=== PATIENT | male | born 1945 | race Caucasian/White ===

== ENCOUNTER 2022-04-11 08:20 | Inpatient (IN) ==
--- NOTE | 2022-04-11 08:33 | Emergency Department Note ---
HPI General Chief complaint: Extremity Injury, Lower Stated complaint: Right foot pain Time Seen by Provider: 04/11/22 08:33 Source: patient Mode of arrival: wheelchair Limitations: no limitations History of Present Illness HPI Narrative: Narrative: Patient is a 77-year-old male with a complex medical history who presents to the emergency department due to concern for bleeding, pain, and swelling of his right foot. He states that this began or Sunday. He states that he first noticed redness, swelling, and bleeding of his foot. He states the bleeding was from the sole of his foot. He states that he had pain in this region, although this was not significant, because he does have a neuropathy that has decreased sensation in both legs. He states that the swelling became worse, and the bleeding continued, so decided to come to the emergency department. When asked about the rest of his leg patient states he is unsure when the redness spread to his leg to his knee. He denies any other symptoms at this time. Related Data Home Medications Medication Instructions Recorded Confirmed labetalol 100 mg tablet 300 mg PO BID 08/14/15 04/11/22 omeprazole 20 mg capsule,delayed 20 mg PO DAILY 08/14/15 04/11/22 release apixaban 5 mg tablet (Eliquis) 5 mg PO BID 04/05/16 04/11/22 multivitamin (Multi-Day tablet) 1 tab-cap PO QDAY 04/05/16 04/11/22 atorvastatin 10 mg tablet 5 mg PO QDAY 11/27/16 04/11/22 duloxetine 20 mg capsule,delayed 40 mg PO QHS 01/16/19 04/11/22 release digoxin 125 mcg (0.125 mg) tablet 125 mcg PO QDAY 09/30/20 04/11/22 magnesium 400 mg .Route BID 09/30/20 04/11/22 pramipexole 0.125 mg tablet See Rx Instructions PO QDAY 09/30/20 04/11/22 lisinopril 20 mg tablet 20 mg PO QDAY 04/07/21 04/11/22 pilocarpine HCl 5 mg tablet 10 mg PO DAILY 04/07/21 04/11/22 brimonidine 0.1 % eye drops 1 drp ophthalmic (eye) BID 04/13/21 04/11/22 (Alphagan P) calcium carbonate 600 mg-vitamin 1,000 cap PO QDAY 04/13/21 04/11/22 D3 25 mcg (1,000 unit) capsule cholecalciferol (vitamin D3) 1,250 2,000 unit PO DAILY 06/07/21 04/11/22 mcg (50,000 unit) capsule vitamin B complex 1 tab PO DAILY 06/07/21 04/11/22 ascorbic acid (vitamin C) 500 mg 1 g PO BID 07/18/21 04/11/22 tablet clonidine HCl 0.3 mg tablet 0.3 mg PO QDAY 07/18/21 04/11/22 ergocalciferol (vitamin D2) 50 mcg 50 mcg PO QMONTH 07/18/21 04/11/22 (2,000 unit) capsule furosemide 80 mg tablet See Rx Instructions PO BID 01/16/22 04/11/22 metolazone 2.5 mg tablet 2.5 mg PO QDAY 01/16/22 04/11/22 folic acid 1 mg PO DAILY 04/11/22 04/11/22 Previous Rx's Medication Instructions Recorded hydroxychloroquine 200 mg tablet 200 mg PO BID #60 tabs 01/16/19 docusate sodium 100 mg capsule 100 mg PO BID #20 caps 06/13/21 (Dulcolax Stool Softener (docusate)) oxycodone 5 mg tablet 5 mg PO Q6H PRN pain #10 tabs 06/13/21 potassium chloride 20 mEq 40 meq PO TID Diuretic induced 01/16/22 tablet,extended release hypokalemia #540 tabs allopurinol 300 mg tablet 300 mg PO QDAY #30 tabs 03/13/22 Allergies Allergy/AdvReac Type Severity Reaction Status Date / Time spironolactone Allergy Severe Swelling Verified 04/10/22 14:53 hydrocodone Allergy Mild Vomiting Verified 04/10/22 14:53 eplerenone Allergy Unknown Unknown Verified 04/10/22 14:53 irbesartan [From Avapro] Allergy Unknown Unknown Verified 04/10/22 14:53 lansoprazole [From Prevacid] Allergy Unknown Unknown Verified 04/10/22 14:53 valsartan [From Diovan] Allergy Unknown Unknown Verified 04/10/22 14:53 Review of Systems ROS ROS Narrative: Narrative: Constitutional: Denies fever or weakness Eyes: Denies eye pain or vision change ENT ED: Denies throat pain or rhinorrhea Cardiovascular: Denies chest pain or edema Respiratory: Denies shortness of breath or cough Gastrointestinal: Denies abdominal pain, nausea, vomiting, diarrhea, constipation, hematochezia or melena Genitourinary: Denies dysuria or frequency Musculoskeletal: Denies back pain or myalgia Integumentary: Reports change in color (Right lower leg); Denies rash or lesions Neurological: Denies headache, weakness, numbness, confusion, abnormal gait or dizziness Endocrine: Denies fatigue or polyuria PFS Narrative Patient History Narrative: Narrative: Medical/Surgical/Family History All Active Problems (Updated 04/11/22 @ 12:03 by Rufino Harrington MD) Laceration (Chronic) Encounter for removal of sutures (Chronic) Costochondral pain (Chronic) Bleeding from varicose veins of lower extremity (Chronic) Anticoagulation adequate with anticoagulant therapy (Chronic) Abnormal antibody titer (Chronic) Adenomatous colon polyp (Chronic) Anemia (Chronic) Anticoagulant prescribed (Chronic) Aortic regurgitation (Chronic) Arthralgia (Chronic) Aspiration of liquid (Chronic) Benign colonic polyp (Chronic) Chondrosarcoma (Chronic) Cough (Chronic) Dissection of thoracoabdominal aorta (Chronic) Edema (Chronic) Elevated serum free T4 level (Chronic) Encounter for long-term (current) use of high-risk medication (Chronic) Encounter for long-term use of opiate analgesic (Chronic) Encounter for monitoring long-term proton pump inhibitor therapy (Chronic) Essential (primary) hypertension (Chronic) GERD without esophagitis (Chronic) GI bleed (Chronic) Hereditary and idiopathic neuropathy (Chronic) History of prostate cancer (Chronic) Hyperlipidemia (Chronic) PAULINA (iron deficiency anemia) (Chronic) Infected sebaceous cyst (Chronic) Influenza vaccine needed (Chronic) roasterman (current) use of non-steroidal anti-inflammatories (nsaid) (Chronic) Need for vaccination with 13-polyvalent pneumococcal conjugate vaccine (Chronic) Ongoing pain (Chronic) Overweight (Chronic) Paroxysmal atrial fibrillation (Chronic) Recurrent cold sores (Chronic) Right shoulder pain (Chronic) Stage III chronic kidney disease (Chronic) Superficial thrombophlebitis (Chronic) Venous insufficiency (Chronic) 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) Adenomatous polyp (Chronic) History of arthritis (Chronic) Multiple pulmonary nodules determined by computed tomography of lung (Chronic) Displaced spiral fracture of shaft of femur (Chronic) Fracture of plateau of left tibia (Chronic) Positive occult stool blood test (Chronic) Prostate cancer (Chronic) 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) Superficial varicosities (Chronic) Ruptured varicose vein (Chronic) Polyarthralgia (Chronic) Rheumatoid arthritis (Chronic) Osteopenia (Chronic) Osteoarthritis (Chronic) Positive BOB (antinuclear antibody) (Chronic) Elevated parathyroid hormone (Chronic) Decreased GFR (Chronic) Pulmonary nodules (Chronic) Cellulitis (Chronic) History of anticoagulant use (Chronic) Varicose vein of leg (Chronic) Acute dyspnea (Chronic) COVID-19 (Chronic) Acute dehydration (Chronic) Rheumatoid nodules (Chronic) Chronic kidney disease (Chronic) Malignant melanoma (Chronic) Hyperuricemia (Chronic) High serum potassium level (Acute) Diuretic-induced hypokalemia (Acute) Gout (Chronic) Blood potassium level greater than 5.0 mEq/L (Acute) Cellulitis (Acute) JOSE ANTONIO (acute kidney injury) (Acute) Medical History Abnormal antibody titer Acute dehydration Acute dyspnea Acute post-traumatic stress disorder Adenomatous colon polyp Adenomatous polyp Anemia Anticoagulant prescribed Anticoagulation adequate with anticoagulant therapy Aortic regurgitation Repair at time of TAA repair Arthralgia Aspiration of liquid Benign colonic polyp Bleeding from varicose veins of lower extremity Cellulitis Chondrosarcoma Chronic kidney disease Constrictive pericarditis Costochondral pain Cough COVID-19 Decreased GFR 01/13/20 GFR 50 Displaced spiral fracture of shaft of femur Dissection of thoracoabdominal aorta Edema Elevated parathyroid hormone Elevated serum free T4 level Encounter for long-term (current) use of high-risk medication Encounter for long-term use of opiate analgesic Encounter for monitoring long-term proton pump inhibitor therapy Encounter for removal of sutures Essential (primary) hypertension Fracture of plateau of left tibia GERD without esophagitis GI bleed Hereditary and idiopathic neuropathy History of anticoagulant use History of arthritis History of prostate cancer Hyperlipidemia PAULINA (iron deficiency anemia) Infected sebaceous cyst Influenza vaccine needed Laceration custodial (current) use of non-steroidal anti-inflammatories (nsaid) Malignant melanoma Left mid-back Multiple pulmonary nodules determined by computed tomography of lung Need for vaccination with 13-polyvalent pneumococcal conjugate vaccine Ongoing pain Osteoarthritis Osteopenia Overweight Paroxysmal atrial fibrillation Polyarthralgia Positive BOB (antinuclear antibody) Positive occult stool blood test Prostate cancer Pulmonary nodules Recurrent cold sores Rheumatoid arthritis Rheumatoid nodules Right shoulder pain Ruptured varicose vein Stage III chronic kidney disease GFR 60 => 45 cc/min over the past 20 yrs given catastrophic TAA and repair. Due to desire to keep BP low, diuretic therapy and RAASI therapy, superimposed prerenal azotemic state. 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 History of right shoulder replacement History of tonsillectomy S/P pericardial surgery remove pericardium, constrictive pericarditis Family History Other Aortic aneurysm Breast cancer Malignant melanoma Osteoporosis Prostate cancer Social History Smoking Status: Never smoker Alcohol Intake Frequency: former alcohol drinker Exam Narrative Narrative: Narrative: General Limitations: no limitations General appearance: Present alert and in no apparent distress; Absent anxious, appears intoxicated or sleepy Head Head: Present atraumatic and normocephalic Eye Eye: Present EOMI; Absent scleral icterus or nystagmus ENT ENT: Present mucous membranes moist; Absent nasal congestion Neck Neck: Present full ROM; Absent tenderness Chest Chest: Present normal inspection and symmetric chest wall rise Respiratory Respiratory: Present normal lung sounds bilaterally; Absent respiratory distress or accessory muscle use Cardiovascular Cardiovascular: Present regular rate, normal rhythm and normal heart sounds Adbominal Abdominal: Present soft; Absent distention Extremities Extremities: Present normal inspection, full ROM, tenderness, pedal edema (Right sided) and pretibial edema (Right sided) Back Back: Present normal inspection and full ROM Neurological Neurological: Present alert and oriented X3 Psychiatric Psychiatric: Present normal affect and normal mood Skin Skin: Present warm (WNL), dry, normal color, erythema and other (Hematoma on sole of right foot) Course Vital Signs Vital signs: Vital Signs Temperature 97.9 F 04/11/22 08:23 Pulse Rate 92 H 02/14/23 08:23 Respiratory Rate 18 04/11/22 08:23 Blood Pressure 112/59 04/11/22 08:23 Pulse Oximetry (%) 94 04/11/22 08:23 Oxygen Delivery Method Room Air 04/11/22 08:23 Temperature 97.9 F 04/11/22 08:23 Pulse Rate 82 04/11/22 11:01 Respiratory Rate 18 04/11/22 08:23 Blood Pressure 99/48 04/11/22 11:01 Pulse Oximetry (%) 93 04/11/22 11:01 Oxygen Delivery Method Room Air 04/11/22 10:31 MDM MDM Narrative Medical decision making narrative: Narrative: Patient is a 77-year-old male who presents to the emergency department due to concern for swelling and bleeding of his right foot. Differential diagnoses include spreading cellulitis, necrotizing soft tissue infection, DVT, although patient is taking Eliquis twice daily and has not missed any doses. Patient's labs are reassuring other than a procalcitonin of 0.5, and significant elevation in creatinine from 1.6-3.6. Patient has received vancomycin and cefepime due to concern for rapidly spreading infection. A CT scan was performed and did demonstrate findings that would be consistent with a cellulitis. I have spoken to Dr. Cruz and he has agreed to see and evaluate patient for admission. Lab Data 04/11/22 09:20 Labs: Lab Results 04/11/22 04/11/22 04/11/22 Range/Units 09:10 09:13 09:20 WBC 7.8 (4.5-11.0) K/mcL RBC 3.30 L (4.63-6.08) M/mcL Hgb 9.6 L (13.7-17.5) g/dL Hct 30.5 L (40.1-51.0) % POC Hct 27.0 L (41-55) MCV 92.4 (80.0-100.0) fL MCH 29.1 (26.0-34.0) pg MCHC 31.5 (31.0-36.0) g/dL RDW 16.6 H (11.5-14.5) % Plt Count 176 (140-440) K/mcL MPV 11.0 (8.8-12.5) fL Immature Gran % (Auto) 0.4 (0.0-0.5) % Neut % (Auto) 72.2 (38.0-78.0) % Lymph % (Auto) 9.5 L (15.5-49.0) % [place] % (Auto) 14.2 H (1.0-12.0) % Eos % (Auto) 3.2 (0.0-7.0) % Baso % (Auto) 0.5 (0.0-2.0) % Lymph # (Auto) 0.74 L (1.50-4.80) K/mcL [place] # (Auto) 1.11 H (0.10-0.90) K/mcL Eos # (Auto) 0.25 (0.00-0.70) K/mcL Baso # (Auto) 0.04 (0.00-0.30) K/mcL Immature Gran # 0.03 (0.00-0.05) K/mcl Absolute Neutrophils 5.63 (1.80-8.00) K/mcL POC VBG pH 7.41 (7.32-7.42) POC VBG pCO2 at Temp 44.8 (41-51) POC VBG pO2 48 H (25-40) POC VBG HCO3 28.2 H (24-28) POC VBG Total CO2 30.0 H (25-29) POC Venous O2 Sat 83.0 H (40-70) POC VBG Base Excess 4.0 H* (-2-2) VBG Lactic Acid 0.8 (0.5-2) POC Sodium 134 (133-145) POC Potassium 5.6 H (3.3-5.1) POC Chloride 98 (96-108) POC Total CO2 29.0 (22-30) POC BUN 83 H (6-20) POC Creatinine 3.6 H (0.6-1.2) POC Glucose 123 H (70-105) POC WB Ioniz Calcium 1.11 L (1.16-1.32) Procalcitonin (<0.10) ng/mL 04/11/22 Range/Units 09:20 WBC (4.5-11.0) K/mcL RBC (4.63-6.08) M/mcL Hgb (13.7-17.5) g/dL Hct (40.1-51.0) % POC Hct (41-55) MCV (80.0-100.0) fL MCH (26.0-34.0) pg MCHC (31.0-36.0) g/dL RDW (11.5-14.5) % Plt Count (140-440) K/mcL MPV (8.8-12.5) fL Immature Gran % (Auto) (0.0-0.5) % Neut % (Auto) (38.0-78.0) % Lymph % (Auto) (15.5-49.0) % [place] % (Auto) (1.0-12.0) % Eos % (Auto) (0.0-7.0) % Baso % (Auto) (0.0-2.0) % Lymph # (Auto) (1.50-4.80) K/mcL [place] # (Auto) (0.10-0.90) K/mcL Eos # (Auto) (0.00-0.70) K/mcL Baso # (Auto) (0.00-0.30) K/mcL Immature Gran # (0.00-0.05) K/mcl Absolute Neutrophils (1.80-8.00) K/mcL POC VBG pH (7.32-7.42) POC VBG pCO2 at Temp (41-51) POC VBG pO2 (25-40) POC VBG HCO3 (24-28) POC VBG Total CO2 (25-29) POC Venous O2 Sat (40-70) POC VBG Base Excess (-2-2) VBG Lactic Acid (0.5-2) POC Sodium (133-145) POC Potassium (3.3-5.1) POC Chloride (96-108) POC Total CO2 (22-30) POC BUN (6-20) POC Creatinine (0.6-1.2) POC Glucose (70-105) POC WB Ioniz Calcium (1.16-1.32) Procalcitonin 0.50 H (<0.10) ng/mL EKG Data EKG #1: EKG attestation: Yes I reviewed and interpreted this EKG. EKG results narrative: Atrial fibrillation with a rate of 83, normal axis, QRS of 106, QTc of 410, T wave flattening in leads I, II, III, aVL, aVF, and V6, and absence of ST elevation or depression. Discharge Plan Patient/Caregiver Discharge Instructions Pt seen by STILL PHOTOGRAPHER/PA only: No Clinical Impression: Cellulitis, JOSE ANTONIO (acute kidney injury) Patient Disposition: Xfer As Inpt ([facility]) Follow up with: Thao Gordillo MD [Primary Care Provider] - Prescriptions: No Action apixaban [Eliquis] 5 mg tablet 5 mg PO BID multivitamin [Multi-Day] tablet 1 tab-cap PO QDAY lisinopril 20 mg tablet 20 mg PO QDAY pilocarpine HCl 5 mg tablet 10 mg PO DAILY calcium carbonate-vitamin D3 600 mg-25 mcg (1,000 unit) capsule 1,000 cap PO QDAY Alphagan P 0.1 % drops 1 drp ophthalmic (eye) BID ergocalciferol (vitamin D2) 50 mcg (2,000 unit) capsule 50 mcg PO QMONTH Rx Instructions: takes 50,000 units monthly. metolazone 2.5 mg tablet 2.5 mg PO QDAY Patient Comments: Dose as of 01/16/2022 potassium chloride 20 mEq tablet extended release 40 meq PO TID Qty: 540 3RF furosemide 80 mg tablet See Rx Instructions PO BID Rx Instructions: 240 mg in AM and 120 mg at 4 PM orally twice a day; Take 3 tabs every morning and take 1.5 tablets in the afternoon atorvastatin 10 mg tablet 5 mg PO QDAY duloxetine 20 mg capsule,delayed release(DR/EC) 40 mg PO QHS hydroxychloroquine 200 mg tablet 200 mg PO BID Qty: 60 3RF magnesium 400 mg .Route BID Rx Instructions: bid pramipexole 0.125 mg tablet See Rx Instructions PO QDAY Rx Instructions: 5 tabs PO daily; digoxin 125 mcg (0.125 mg) tablet 125 mcg PO QDAY ascorbic acid (vitamin C) 500 mg tablet 1 g PO BID Rx Instructions: takes 600 mg two times a day. allopurinol 300 mg tablet 300 mg PO QDAY Qty: 30 2RF labetalol 100 MG tablet 300 mg PO BID omeprazole 20 MG capsule 20 mg PO DAILY clonidine HCl 0.3 mg tablet 0.3 mg PO QDAY Rx Instructions: 0.2 MG IN THE EVENING B Complex Tablet Extended Release 1 tab PO DAILY cholecalciferol (vitamin D3) 50,000 unit capsule 2,000 unit PO DAILY Rx Instructions: 50,000 unit PO Q Week x 12 weeks; then decrease to 50,000 units per month thereafter. oxycodone 5 mg tablet 5 mg PO Q6H PRN (Reason: pain) Qty: 10 0RF docusate sodium [Dulcolax Stool Softener (dss)] 100 mg capsule 100 mg PO BID Qty: 20 0RF folic acid 1 mg 1 mg PO DAILY
[2022-04-11] MEDS ORDERED: 0.9 % SODIUM CHLORIDE 500 ML IV ONE (08:48)
[2022-04-11 09:16] LABS: POC Calcium, Ionized 1.11 (1.16-1.32); POC Creatinine 3.6 (0.6-1.2); POC Potassium 5.6 (3.3-5.1)
[2022-04-11] MEDS ORDERED: CEFEPIME 1 GM VIAL IV ONE (09:20)
[2022-04-11] MEDS ORDERED: VANCOMYCIN 2,000 MG in 0.9 % SODIUM CHLORIDE 500 ML IV ONE (09:20)
[2022-04-11 10:09] LABS: Basophils # (Auto) 0.04 K/mcL (0.00-0.30); Basophils % (Auto) 0.5 % (0.0-2.0); Eosinophils # (Auto) 0.25 K/mcL (0.00-0.70); Eosinophils % (Auto) 3.2 % (0.0-7.0); Hematocrit 30.5 % (40.1-51.0); Hemoglobin 9.6 g/dL (13.7-17.5); Lymphocytes # (Auto) 0.74 K/mcL (1.50-4.80); Lymphocytes % (Auto) 9.5 % (15.5-49.0); Mean Cell Volume 92.4 fL (80.0-100.0); Mean Corpuscular HGB Conc 31.5 g/dL (31.0-36.0); Monocytes # (Auto) 1.11 K/mcL (0.10-0.90); Monocytes % (Auto) 14.2 % (1.0-12.0); Neutrophils % (Auto) 72.2 % (38.0-78.0); Platelet Count 176 K/mcL (140-440); Red Cell Distribution Width 16.6 % (11.5-14.5); WBC 7.8 K/mcL (4.5-11.0)
--- NOTE | 2022-04-11 10:39 | EKG ---
[facility] Test Date: 2022-04-11 Pat Name: Tera Jaramillo Department: ED Room: Gender: Male Remedy Developer: ABILIO : [id number] Requested By: Rufino Harrington Order Number: [id number] Reading MD: Torsten Oliveros Measurements Intervals Coin Rate: 83 P: GA: QRS: 78 QRSD: 106 T: -71 QT: 348 QTc: 410 Interpretive Statements Atrial fibrillation Borderline T abnormalities, inferior leads, lateral leads Electronically Signed On 04-11-2022 10:39:05 PST by Torsten Oliveros /[email or web address]/[id number]
--- NOTE | 2022-04-11 11:44 | Cat Scan Report ---
CLINICAL INFORMATION: Right leg pain and swelling for five days COMPARISON: None TECHNIQUE: 0.625 mm axial slices were obtained the distal femoral diaphysis through the entire left tibia fibula ankle and foot.. 2.5 mm Sagittal, coronal and axial reformatted images were processed and reviewed at bone and soft tissue windows. Exam was performed using radiation dose optimization techniques including, but not limited to, automated exposure control, adjustment of the mA and/or kV according to patient size and use of iterative reconstruction technique. FINDINGS: There is moderate subcutaneous edema or cellulitis throughout the calf particularly in the lateral and posterior regions. The muscle and fascial planes appear unremarkable. There is no evidence of osteomyelitis. Old distal fibular fracture is solidly unified and transfixed by lateral plate and screw. In the feet region, there is mild hallux valgus, metatarsus abductus and hammertoe deformities second through fifth digits. Periarticular calcification present in the first and second MTP joints with juxta-articular erosions. This could indicate the presence of gout. There are multiple cysts seen throughout the mid foot bones with moderate degenerative change in all of the MTT joints. IMPRESSION: 1. Moderate edema or cellulitis in the calf subcutaneous soft tissues. No evidence of discrete soft tissue abscess or osteomyelitis. 2. Possible gout in the first and second MTP joints. 3. Degenerative change in the MTT joints. 4. Small suprapatellar effusion Interpreted and Authenticated by: Dre Franco 04/11/22
--- NOTE | 2022-04-11 12:52 | Internal Med History&Physical ---
HPI History of Present Illness Patient information: Note initiated : 04/11/22 at 12:46 pm Service Date, if different from initiated Date: [] Patient: Tera Jaramillo 77 y/o M admitted on for Right foot pain. Chief Complaint: [] History of present illness: Mr. Jaramillo is a 77 year old M Presents the ED with right foot pain and swelling as well as bleeding that has been going on for 5 days. Patient states about 4 5 days ago he noticed a blood blister on the sole of his foot. The blood blister eventually opened up and started bleeding. He denies stepping on anything or trauma to the foot. Over the following days he developed increasing redness and swelling throughout the foot as well as tenderness. He has had chills but denies fevers. In the ED patient was evaluated mildly tachycardic. Found have acute kidney injury. Elevated procalcitonin. Mildly elevated potassium. CT of the foot showing showed moderate cellulitis in the calf and soft tissues. His procalcitonin was elevated 0.5. Per the ED physician the infection has spread up to about his knee. And given the extensive ED and the acute kidney injury that was also noted. Admission was asked. Creatinine 3.6 on hyubq-le-maml. Lactate unremarkable. Review of Systems: Pertinent positives as above. Denies headache/fever/nausea/vomiting/chest or abdominal pain/cough/dyspnea/diarrhea. Remaining 10 point review of system reviewed negative PHYSICAL EXAM: General: Alert, Awake, No acute Distress, obese Eyes/N/T: EOMI, no scleral icterus, PERRL, Head/Neck: neck supple, full ROM, normocephalic atraumatic CV: irreg, No murmurs, normal s1/s2 Pulm: Clear b/l, no wheezing/rhonchi/rales, no respiratory distress Abd: soft, nontender, +BS x4 Ext: no clubbing/cyanosis. b/l LE edema worse on Right. RLE erythema/tenderness from foot to calf Neuro: Alert, no focal deficits, moves all extremities, CN 2-12 grossly intact, sensations intact b/l upper/lower Psychiatric: Skin: warm/dry, normal color PFSH PFSH All Active Problems (Updated 04/11/22 @ 12:03 by Rufino Harrington MD) Laceration (Chronic) Encounter for removal of sutures (Chronic) Costochondral pain (Chronic) Bleeding from varicose veins of lower extremity (Chronic) Anticoagulation adequate with anticoagulant therapy (Chronic) Abnormal antibody titer (Chronic) Adenomatous colon polyp (Chronic) Anemia (Chronic) Anticoagulant prescribed (Chronic) Aortic regurgitation (Chronic) Arthralgia (Chronic) Aspiration of liquid (Chronic) Benign colonic polyp (Chronic) Chondrosarcoma (Chronic) Cough (Chronic) Dissection of thoracoabdominal aorta (Chronic) Edema (Chronic) Elevated serum free T4 level (Chronic) Encounter for long-term (current) use of high-risk medication (Chronic) Encounter for long-term use of opiate analgesic (Chronic) Encounter for monitoring long-term proton pump inhibitor therapy (Chronic) Essential (primary) hypertension (Chronic) GERD without esophagitis (Chronic) GI bleed (Chronic) Hereditary and idiopathic neuropathy (Chronic) History of prostate cancer (Chronic) Hyperlipidemia (Chronic) PAULINA (iron deficiency anemia) (Chronic) Infected sebaceous cyst (Chronic) Influenza vaccine needed (Chronic) terminal carman (current) use of non-steroidal anti-inflammatories (nsaid) (Chronic) Need for vaccination with 13-polyvalent pneumococcal conjugate vaccine (Chronic) Ongoing pain (Chronic) Overweight (Chronic) Paroxysmal atrial fibrillation (Chronic) Recurrent cold sores (Chronic) Right shoulder pain (Chronic) Stage III chronic kidney disease (Chronic) Superficial thrombophlebitis (Chronic) Venous insufficiency (Chronic) 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) Adenomatous polyp (Chronic) History of arthritis (Chronic) Multiple pulmonary nodules determined by computed tomography of lung (Chronic) Displaced spiral fracture of shaft of femur (Chronic) Fracture of plateau of left tibia (Chronic) Positive occult stool blood test (Chronic) Prostate cancer (Chronic) 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) Superficial varicosities (Chronic) Ruptured varicose vein (Chronic) Polyarthralgia (Chronic) Rheumatoid arthritis (Chronic) Osteopenia (Chronic) Osteoarthritis (Chronic) Positive BOB (antinuclear antibody) (Chronic) Elevated parathyroid hormone (Chronic) Decreased GFR (Chronic) Pulmonary nodules (Chronic) Cellulitis (Chronic) History of anticoagulant use (Chronic) Varicose vein of leg (Chronic) Acute dyspnea (Chronic) COVID-19 (Chronic) Acute dehydration (Chronic) Rheumatoid nodules (Chronic) Chronic kidney disease (Chronic) Malignant melanoma (Chronic) Hyperuricemia (Chronic) High serum potassium level (Acute) Diuretic-induced hypokalemia (Acute) Gout (Chronic) Blood potassium level greater than 5.0 mEq/L (Acute) Cellulitis (Acute) JOSE ANTONIO (acute kidney injury) (Acute) Medical History Abnormal antibody titer Acute dehydration Acute dyspnea Acute post-traumatic stress disorder Adenomatous colon polyp Adenomatous polyp Anemia Anticoagulant prescribed Anticoagulation adequate with anticoagulant therapy Aortic regurgitation Repair at time of TAA repair Arthralgia Aspiration of liquid Benign colonic polyp Bleeding from varicose veins of lower extremity Cellulitis Chondrosarcoma Chronic kidney disease Constrictive pericarditis Costochondral pain Cough COVID-19 Decreased GFR 01/13/20 GFR 50 Displaced spiral fracture of shaft of femur Dissection of thoracoabdominal aorta Edema Elevated parathyroid hormone Elevated serum free T4 level Encounter for long-term (current) use of high-risk medication Encounter for long-term use of opiate analgesic Encounter for monitoring long-term proton pump inhibitor therapy Encounter for removal of sutures Essential (primary) hypertension Fracture of plateau of left tibia GERD without esophagitis GI bleed Hereditary and idiopathic neuropathy History of anticoagulant use History of arthritis History of prostate cancer Hyperlipidemia PAULINA (iron deficiency anemia) Infected sebaceous cyst Influenza vaccine needed Laceration nursing home (current) use of non-steroidal anti-inflammatories (nsaid) Malignant melanoma Left mid-back Multiple pulmonary nodules determined by computed tomography of lung Need for vaccination with 13-polyvalent pneumococcal conjugate vaccine Ongoing pain Osteoarthritis Osteopenia Overweight Paroxysmal atrial fibrillation Polyarthralgia Positive BOB (antinuclear antibody) Positive occult stool blood test Prostate cancer Pulmonary nodules Recurrent cold sores Rheumatoid arthritis Rheumatoid nodules Right shoulder pain Ruptured varicose vein Stage III chronic kidney disease GFR 60 => 45 cc/min over the past 20 yrs given catastrophic TAA and repair. Due to desire to keep BP low, diuretic therapy and RAASI therapy, superimposed prerenal azotemic state. 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 History of right shoulder replacement History of tonsillectomy S/P pericardial surgery remove pericardium, constrictive pericarditis Family History Other Aortic aneurysm Breast cancer Malignant melanoma Osteoporosis Prostate cancer Social History marital status: service: Yes occupational status: retired smoking status: Never smoker alcohol intake frequency: former alcohol drinker MEDS/ALLERGIES Home Medications and Allergies Home Medications Medication Instructions Recorded Confirmed Type labetalol 100 mg tablet 300 mg PO BID 08/14/15 04/11/22 History omeprazole 20 mg capsule,delayed 20 mg PO DAILY 08/14/15 04/11/22 History release apixaban 5 mg tablet (Eliquis) 5 mg PO BID 04/05/16 04/11/22 History multivitamin (Multi-Day tablet) 1 tab-cap PO QDAY 04/05/16 04/11/22 History atorvastatin 10 mg tablet 5 mg PO QDAY 11/27/16 04/11/22 History duloxetine 20 mg capsule,delayed 40 mg PO QHS 01/16/19 04/11/22 History release hydroxychloroquine 200 mg tablet 200 mg PO BID #60 tabs 01/16/19 04/11/22 Rx digoxin 125 mcg (0.125 mg) tablet 125 mcg PO QDAY 09/30/20 04/11/22 History magnesium 400 mg .Route BID 09/30/20 04/11/22 History pramipexole 0.125 mg tablet See Rx Instructions PO QDAY 09/30/20 04/11/22 History lisinopril 20 mg tablet 20 mg PO QDAY 04/07/21 04/11/22 History pilocarpine HCl 5 mg tablet 10 mg PO DAILY 04/07/21 04/11/22 History brimonidine 0.1 % eye drops 1 drp ophthalmic (eye) BID 04/13/21 04/11/22 History (Alphagan P) calcium carbonate 600 mg-vitamin 1,000 cap PO QDAY 04/13/21 04/11/22 History D3 25 mcg (1,000 unit) capsule cholecalciferol (vitamin D3) 1,250 2,000 unit PO DAILY 06/07/21 04/11/22 History mcg (50,000 unit) capsule vitamin B complex 1 tab PO DAILY 06/07/21 04/11/22 History docusate sodium 100 mg capsule 100 mg PO BID #20 caps 06/13/21 04/11/22 Rx (Dulcolax Stool Softener (docusate)) oxycodone 5 mg tablet 5 mg PO Q6H PRN pain #10 tabs 06/13/21 04/11/22 Rx ascorbic acid (vitamin C) 500 mg 1 g PO BID 07/18/21 04/11/22 History tablet clonidine HCl 0.3 mg tablet 0.3 mg PO QDAY 07/18/21 04/11/22 History ergocalciferol (vitamin D2) 50 mcg 50 mcg PO QMONTH 07/18/21 04/11/22 History (2,000 unit) capsule furosemide 80 mg tablet See Rx Instructions PO BID 01/16/22 04/11/22 History metolazone 2.5 mg tablet 2.5 mg PO QDAY 01/16/22 04/11/22 History potassium chloride 20 mEq 40 meq PO TID Diuretic induced 01/16/22 04/11/22 Rx tablet,extended release hypokalemia #540 tabs allopurinol 300 mg tablet 300 mg PO QDAY #30 tabs 03/13/22 04/11/22 Rx folic acid 1 mg PO DAILY 04/11/22 04/11/22 History Allergies Allergy/AdvReac Type Severity Reaction Status Date / Time spironolactone Allergy Severe Swelling Verified 04/10/22 14:53 hydrocodone Allergy Mild Vomiting Verified 04/10/22 14:53 eplerenone Allergy Unknown Unknown Verified 04/10/22 14:53 irbesartan [From Avapro] Allergy Unknown Unknown Verified 04/10/22 14:53 lansoprazole [From Prevacid] Allergy Unknown Unknown Verified 04/10/22 14:53 valsartan [From Diovan] Allergy Unknown Unknown Verified 04/10/22 14:53 EXAM Constitutional Vitals: Temp Pulse Resp BP Pulse Ox O2 Del Method 97.9 F 77 18 101/53 95 Room Air 04/11/22 08:23 04/11/22 12:01 04/11/22 08:23 04/11/22 12:01 04/11/22 12:01 04/11/22 10:31 DATA Data Completed and Pending Labs: Labs from last 24 hours 04/11/22 04/11/22 04/11/22 09:20 09:20 09:20 WBC RBC Hgb Hct POC Hct MCV MCH MCHC RDW Plt Count MPV Immature Gran % (Auto) Neut % (Auto) Lymph % (Auto) [place] % (Auto) Eos % (Auto) Baso % (Auto) Lymph # (Auto) [place] # (Auto) Eos # (Auto) Baso # (Auto) Immature Gran # Absolute Neutrophils Platelet Estimate Pending RBC Morphology Pending POC VBG pH POC VBG pCO2 at Temp POC VBG pO2 POC VBG HCO3 POC VBG Total CO2 POC Venous O2 Sat POC VBG Base Excess VBG Lactic Acid POC Sodium POC Potassium POC Chloride POC Total CO2 POC BUN POC Creatinine POC Glucose POC WB Ioniz Calcium Procalcitonin 0.50 H Digoxin 2.0 H* 04/11/22 04/11/22 04/11/22 09:20 09:13 09:10 WBC 7.8 RBC 3.30 L Hgb 9.6 L Hct 30.5 L POC Hct 27.0 L MCV 92.4 MCH 29.1 MCHC 31.5 RDW 16.6 H Plt Count 176 MPV 11.0 Immature Gran % (Auto) 0.4 Neut % (Auto) 72.2 Lymph % (Auto) 9.5 L [place] % (Auto) 14.2 H Eos % (Auto) 3.2 Baso % (Auto) 0.5 Lymph # (Auto) 0.74 L [place] # (Auto) 1.11 H Eos # (Auto) 0.25 Baso # (Auto) 0.04 Immature Gran # 0.03 Absolute Neutrophils 5.63 Platelet Estimate RBC Morphology POC VBG pH 7.41 POC VBG pCO2 at Temp 44.8 POC VBG pO2 48 H POC VBG HCO3 28.2 H POC VBG Total CO2 30.0 H POC Venous O2 Sat 83.0 H POC VBG Base Excess 4.0 H* VBG Lactic Acid 0.8 POC Sodium 134 POC Potassium 5.6 H POC Chloride 98 POC Total CO2 29.0 POC BUN 83 H POC Creatinine 3.6 H POC Glucose 123 H POC WB Ioniz Calcium 1.11 L Procalcitonin Digoxin A/P Narrative A/P Narrative: A: *RLE cellulitis: *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: *Hyperkalemia, mild:pt has been on potassium supp *h/o CAD w/cabg: on eliquis/statin *PAF: on eliquis/digoxin/BB *RA: On hydrochloroquine *HTN/HLD: *Anemia, chronic: *GERD, Gout: *Obesity: BMI 31 P: -IV abx, pending WC/BC -wound care team -IVF, f/u renal fxn, uop, i/o -f/u potassium and other electrolytes - -cont statin -dig level elevated, hold digoxin for now and f/u level -hold clonidine(restart first)/labetalol/ACEI for soft BP and JOSE ANTONIO and hyperkalemia -hold lasix for now -PT/OT -CM for placement needs -ppx: eliquis / home ppi Time Spent With Patient Time: Total time spent is greater than 50% in coordination of care (as documented) at patient's floor/unit and/or counseling patient: Initial: Total time with patient: 75 - 90 minutes
[2022-04-11 13:31] LABS: Anisocytosis 1+ (None Seen); Eosinophils % (Manual) 4 % (0-7); Hypochromasia 1+ (None Seen); Lymphocytes % 16 % (15-49); Monocytes % (Manual) 8 % (1-12); Platelet Estimate NORMAL (Normal); RBC Morphology ABNORMAL (Normal); Segmented Neutrophils % 72 % (38-78); Toxic Granulation 1+ (None Seen)
[2022-04-11] MEDS ORDERED: ONDANSETRON 4 MG/2 ML VIAL IV PRN (14:39)
[2022-04-11] MEDS ORDERED: IPRATROPIUM/ALBUTEROL 3 ML AMPUL.NEB NEB PRN (14:39)
[2022-04-11] MEDS ORDERED: 0.9 % SODIUM CHLORIDE 1,500 ML IV ONE (14:39)
[2022-04-11] MEDS ORDERED: POLYETHYLENE GLYCOL 3350 17 GM PACKET PO PRN (14:39)
[2022-04-11] MEDS ORDERED: POTASSIUM CHLORIDE 20 MEQ TABLET PO PRN ×2 (14:39)
[2022-04-11] MEDS ORDERED: METOPROLOL TARTRATE 5 MG/5 ML VIAL IV PRN (14:39)
[2022-04-11] MEDS ORDERED: POTASSIUM CHLORIDE 40 MEQ in DEXTROSE 5% IN WATER 500 ML IV PRN (14:39)
[2022-04-11] MEDS ORDERED: SENNOSIDES 1 TABLET PO PRN (14:39)
[2022-04-11] MEDS ORDERED: MAGNESIUM SULFATE 2 GM/50 ML BAG IV PRN (14:39)
[2022-04-11] MEDS: CLINDAMYCIN IN 0.9 % SOD CHLOR 600 MG/50 ML BAG IV SCH ×2 (15:17→22:00)
[2022-04-11] MEDS: 0.9 % SODIUM CHLORIDE 10 ML SYRINGE IV SCH ×2 (15:18→20:26)
[2022-04-11] MEDS: DULoxetine 20 MG CAPSULE PO SCH (20:34)
[2022-04-11] MEDS: HYDROXYCHLOROQUINE 200 MG TABLET PO SCH (20:35)
[2022-04-11] MEDS: APIXABAN 5 MG TABLET PO SCH (20:36)
[2022-04-11] MEDS: oxyCODONE HCL 5 MG TABLET PO PRN (20:36)
[2022-04-11] MEDS: CEFEPIME 1 GM VIAL IV SCH (20:37)
[2022-04-11] MEDS: DOCUSATE SODIUM 100 MG CAPSULE PO SCH (20:37)
[2022-04-11] MEDS: Brimonidine [Alphagan P] 0.1 % drops OP SCH (20:39)
[2022-04-11] MEDS ORDERED: DOCUSATE SODIUM 100 MG CAPSULE PO SCH (21:00)
[2022-04-12] MEDS: oxyCODONE HCL 5 MG TABLET PO PRN ×4 (02:17→23:43)
[2022-04-12] MEDS: 0.9 % SODIUM CHLORIDE 10 ML SYRINGE IV SCH ×3 (05:17→21:28)
[2022-04-12] MEDS: CLINDAMYCIN IN 0.9 % SOD CHLOR 600 MG/50 ML BAG IV SCH ×3 (05:54→21:08)
[2022-04-12 06:51] LABS: Basophils # (Auto) 0.04 K/mcL (0.00-0.30); Basophils % (Auto) 0.5 % (0.0-2.0); Eosinophils # (Auto) 0.23 K/mcL (0.00-0.70); Eosinophils % (Auto) 3.1 % (0.0-7.0); Hematocrit 29.9 % (40.1-51.0); Hemoglobin 9.3 g/dL (13.7-17.5); Lymphocytes # (Auto) 0.67 K/mcL (1.50-4.80); Lymphocytes % (Auto) 8.9 % (15.5-49.0); Mean Corpuscular HGB Conc 31.1 g/dL (31.0-36.0); Mean Platelet Volume 10.4 fL (8.8-12.5); Monocytes # (Auto) 0.79 K/mcL (0.10-0.90); Monocytes % (Auto) 10.5 % (1.0-12.0); Neutrophils % (Auto) 76.3 % (38.0-78.0); Platelet Count 181 K/mcL (140-440); RBC 3.25 M/mcL (4.63-6.08); Red Cell Distribution Width 16.5 % (11.5-14.5); WBC 7.5 K/mcL (4.5-11.0)
[2022-04-12 07:16] LABS: ALT/SGPT 23 U/L (<40); AST/SGOT 20 U/L (<40); Albumin 2.9 gm/dL (3.2-5.2); Albumin/Globulin Ratio 1.1 (1.0-2.3); Alkaline Phosphatase 88 U/L (39-117); Bilirubin,Direct 0.2 mg/dL (<0.3); Bilirubin,Total 0.5 mg/dL (0.1-1.0); Blood Urea Nitrogen 71 mg/dL (8-23); Calcium 8.5 mg/dL (8.6-10.4); Carbon Dioxide 27 mmol/L (22-30); Chloride 101 mmol/L (96-108); Globulin 2.6 gm/dL (2.2-3.7); Glomerular Filtration Rate 25; Glucose 96 mg/dL (70-105); Lactate Dehydrogenase 229 U/L (135-225); Phosphorous 4.1 mg/dL (2.5-4.5); Triglycerides 39 mg/dL (<150); Uric Acid 5.2 mg/dL (2.5-8.0)
[2022-04-12] MEDS: OMEPRAZOLE 20 MG CAPSULE PO SCH (07:29)
--- NOTE | 2022-04-12 07:38 | Internal Med Progress Note ---
SUBJECTIVE Subjective Patient information: Note initiated : 04/12/22 at 7:31 am Service Date, if different from initiated Date: [] Patient: Tera Jaramillo 77 y/o M admitted on 04/11/22 for Right foot pain. Chief Complaint: [] Interval history: History of present illness: Mr. Jaramillo is a 77 year old M Presents the ED with right foot pain and swelling as well as bleeding that has been going on for 5 days. Patient states about 4 5 days ago he noticed a blood blister on the sole of his foot. The blood blister eventually opened up and started bleeding. He denies stepping on anything or trauma to the foot. Over the following days he developed increasing redness and swelling throughout the foot as well as tenderness. He has had chills but denies fevers. In the ED patient was evaluated mildly tachycardic. Found have acute kidney injury. Elevated procalcitonin. Mildly elevated potassium. CT of the foot showing showed moderate cellulitis in the calf and soft tissues. His procalcitonin was elevated 0.5. Per the ED physician the infection has spread up to about his knee. And given the extensive ED and the acute kidney injury that was also noted. Admission was asked. Creatinine 3.6 on [id number]-cupr. Lactate unremarkable. 04/12 Patient states he slept okay. No new complaints. Been evaluated by Dr. Mike today. Anemia. Hyperkalemia improving. Renal function little better. Follow-up PCT. Wound care recommendations. Continue IV antibiotics and pending cultures Follow-up dig level currently holding. Review of Systems: denies headache/fever/chills/nausea/vomiting/chest or abdominal pain/cough/dyspnea/diarrhea. Otherwise see above. PHYSICAL EXAM: General: Alert, Awake, No acute Distress, obese Eyes/N/T: EOMI, no scleral icterus, Head/Neck: neck supple, full ROM, CV: irreg, No murmurs, Pulm: Clear b/l, no wheezing/rhonchi/rales, no respiratory distress Abd: soft, nontender, +BS x4 Ext: no clubbing/cyanosis. b/l LE edema worse on Right. RLE erythema/tenderness from foot to calf Neuro: Alert, no focal deficits, moves all extremities, sensations intact b/l upper/lower Psychiatric: Skin: warm/dry, normal color Constitutional Vitals: Vital Signs Temp Pulse Resp BP Pulse Ox O2 Del Method 97.9 F 105 H 12 130/61 96 Room Air 04/12/22 07:24 04/12/22 07:24 04/12/22 07:24 04/12/22 07:24 04/12/22 07:24 04/12/22 07:24 Period Temp Pulse Resp BP Sys/Barraza Pulse Ox O2 Del Method O2 Flow Rate Last 24 Hr 97.9 F-98.6 F 62-105 12-18 74-130/20-63 88-97 Room Air-Room Air Intake and Output 04/11/22 04/12/22 04/12/22 19:59 03:59 11:59 Intake Total 1000 725 Output Total 350 1425 Balance 650 -700 Weight 90.537 kg Intake & Output: Intake & Output 04/11/22 04/12/22 04/12/22 19:59 03:59 11:59 Intake Total 1000 725 Output Total 350 1425 Balance 650 -700 Weight 90.537 kg Intake: IV 1000 100 Sodium Chloride 0.9% 500 ml @ 500 Wide Open IV BOLUS ONE Rx#: [id number] Vancomycin 2,000 mg In Sodium 500 Chloride 0.9% 500 ml @ 250 mls/ hr IV ONCE ONE Rx#:[id number] Oral 625 Output: Void Amount 350 1425 Other: Meal Dinner taurus Percent of Meal Consumed 100% 100 Feeding Ability Independent Independent Urine Appearance Clear Clear Urine Color Bright Yellow Yellow Urine Odor Normal Normal OBJ DATA Labs 04/12/22 05:17 04/12/22 05:16 Labs: Abnormal Lab Results 04/12/22 04/12/22 04/12/22 05:17 05:17 05:16 RBC 3.25 L Hgb 9.3 L Hct 29.9 L POC Hct RDW 16.5 H Immature Gran % (Auto) 0.7 H Lymph % (Auto) 8.9 L [place] % (Auto) Lymph # (Auto) 0.67 L [place] # (Auto) WBC Morphology Vacuolated Neuts Toxic Granulation RBC Morphology Hypochromasia Anisocytosis POC VBG pO2 POC VBG HCO3 POC VBG Total CO2 POC Venous O2 Sat POC VBG Base Excess POC Potassium POC BUN BUN 71 H Creatinine 2.4 H POC Creatinine POC Glucose Calcium 8.5 L POC WB Ioniz Calcium Lactate Dehydrogenase 229 H Total Protein 5.5 L Albumin 2.9 L Procalcitonin 0.38 H Digoxin 04/11/22 04/11/22 04/11/22 09:20 09:20 09:20 RBC Hgb Hct POC Hct RDW Immature Gran % (Auto) Lymph % (Auto) [place] % (Auto) Lymph # (Auto) [place] # (Auto) WBC Morphology Abnormal A Vacuolated Neuts 1+ A Toxic Granulation 1+ A RBC Morphology Abnormal A Hypochromasia 1+ A Anisocytosis 1+ A POC VBG pO2 POC VBG HCO3 POC VBG Total CO2 POC Venous O2 Sat POC VBG Base Excess POC Potassium POC BUN BUN Creatinine POC Creatinine POC Glucose Calcium POC WB Ioniz Calcium Lactate Dehydrogenase Total Protein Albumin Procalcitonin 0.50 H Digoxin 2.0 H* 04/11/22 04/11/22 04/11/22 09:20 09:13 09:10 RBC 3.30 L Hgb 9.6 L Hct 30.5 L POC Hct 27.0 L RDW 16.6 H Immature Gran % (Auto) Lymph % (Auto) 9.5 L [place] % (Auto) 14.2 H Lymph # (Auto) 0.74 L [place] # (Auto) 1.11 H WBC Morphology Vacuolated Neuts Toxic Granulation RBC Morphology Hypochromasia Anisocytosis POC VBG pO2 48 H POC VBG HCO3 28.2 H POC VBG Total CO2 30.0 H POC Venous O2 Sat 83.0 H POC VBG Base Excess 4.0 H* POC Potassium 5.6 H POC BUN 83 H BUN Creatinine POC Creatinine 3.6 H POC Glucose 123 H Calcium POC WB Ioniz Calcium 1.11 L Lactate Dehydrogenase Total Protein Albumin Procalcitonin Digoxin Meds: Medications Acetaminophen (Acetaminophen 325 Mg Tablet) 650 mg PO Q6HP PRN PRN Reason: PAIN/FEVER > 101 Albuterol/Ipratropium (Ipratropium/Albuterol 3 Ml Ampul.Neb) 3 ml NEB Q4HP PRN PRN Reason: Shortness Of Breath Allopurinol (Allopurinol 100 Mg Tablet) 50 mg PO QDAY [facility] Apixaban (Apixaban 5 Mg Tablet) 5 mg PO BID [facility] Last Admin: 04/11/22 20:36 Dose: 5 mg Atorvastatin Calcium (Atorvastatin 10 Mg Tablet) 5 mg PO QDAY [facility] Calcium Carbonate/Glycine (Calcium (Oyster Shell) 500 Mg Tablet) 1,000 mg PO QDAY [facility] Cefepime HCl (Cefepime 1 Gm Vial) 1 gm IV Q12H [facility]; Protocol Last Admin: 04/11/22 20:37 Dose: 1 gm Clonidine HCl (Clonidine Hcl 0.1 Mg Tablet) 0.3 mg PO QDAY [facility] Docusate Sodium (Docusate Sodium 100 Mg Capsule) 100 mg PO BID [facility] Last Admin: 04/11/22 20:37 Dose: Not Given Duloxetine HCl (Duloxetine 20 Mg Capsule) 40 mg PO QHS [facility] Last Admin: 04/11/22 20:34 Dose: 40 mg Ergocalciferol (Ergocalciferol (Vitamin D2) 50,000 Unit Capsule) 50,000 unit PO MONTHLY [facility] Folic Acid (Folic Acid 1 Mg Tablet) 1 mg PO DAILY [facility] Hydroxychloroquine Sulfate (Hydroxychloroquine 200 Mg Tablet) 200 mg PO BID [facility] Last Admin: 04/11/22 20:35 Dose: 200 mg Potassium Chloride 40 meq/ (Dextrose) 520 mls @ 130 mls/hr IV UD PRN PRN Reason: Potassium < 3 Magnesium Sulfate (Magnesium Sulfate) 2 gm in 50 mls @ 50 mls/hr IV UD PRN PRN Reason: Magnesium </= 1.6 CLINDAMYCIN IN 0.9 % SOD CHLOR (Clindamycin 600 Mg/50 Ml-Ns) 600 mg in 50 mls @ 100 mls/hr IV Q8H [facility] Stop: 04/13/22 06:29 Last Admin: 04/12/22 05:54 Dose: 100 mls/hr Metoprolol Tartrate (Metoprolol Tartrate 5 Mg/5 Ml Vial) 5 mg IV Q2HP PRN PRN Reason: Tachyarrhythmias HR>110 Omeprazole (Omeprazole 20 Mg Capsule) 20 mg PO QAMAC [facility] Last Admin: 04/12/22 07:29 Dose: 20 mg Ondansetron HCl (Ondansetron 4 Mg/2 Ml Vial) 4 mg IV Q4HP PRN PRN Reason: Nausea And Vomiting Oxycodone HCl (Oxycodone Hcl 5 Mg Tablet) 5 mg PO Q6H PRN; Protocol PRN Reason: pain Last Admin: 04/12/22 02:17 Dose: 5 mg Brimonidine [ Alphagan P] 0.1 % Drops 1 dose OP BID [facility] Last Admin: 04/11/22 20:39 Dose: 1 dose Pilocarpine Hcl 5 Mg (Tablet) 2 dose PO DAILY [facility] Polyethylene Glycol (Polyethylene Glycol 3350 17 Gm Packet) 17 gm PO DAILYP PRN PRN Reason: Constipation Potassium Chloride (Potassium Chloride 20 Meq Tablet) 40 meq PO UD PRN PRN Reason: Potssium is 3-3.5 Potassium Chloride (Potassium Chloride 20 Meq Tablet) 40 meq PO UD PRN PRN Reason: Potassium < 3 Senna (Sennosides 1 Tablet) 2 tab PO DAILYP PRN PRN Reason: Constipation Sodium Chloride (0.9 % Sodium Chloride 10 Ml Syringe) 10 ml IV Q8 [facility] Last Admin: 04/12/22 05:17 Dose: Not Given Vitamin D (Vitamin D3 25 Mcg Tablet) 50 mcg PO DAILY [facility] A/P Narrative A/P Narrative: A: *RLE cellulitis: -no abscess on imaging *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: *Hyperkalemia, mild:pt had been on potassium supp -improved *h/o CAD w/cabg: on eliquis/statin *PAF: on eliquis/digoxin/BB *h/o diastolic (III) cardiac dysfxn *RA: On hydrochloroquine *HTN/HLD: *Anemia, chronic: *GERD, Gout: *Obesity: BMI 31 P: -IV abx, pending WC/BC, mrsa screen neg -wound care team -IVF d/c, f/u renal fxn, uop, i/o -f/u potassium and other electrolytes -cont statin -dig level elevated, hold digoxin for now and f/u level -started clonidine, restart labetalol, hold ACEI for soft BP and JOSE ANTONIO and hyperkalemia -hold lasix for now, d/c home potassium -PT/OT -CM for placement needs -ppx: eliquis / home ppi Time Spent With Patient Time: Total time spent is greater than 50% in coordination of care (as documented) at patient's floor/unit and/or counseling patient: Subsequent: Total time with patient: 50 - 65 Minutes QUALITY VTE Deep Vein Thrombosis/Pulmonary Embolism Present on Admission: No
[2022-04-12] MEDS: cloNIDine HCL 0.1 MG TABLET PO SCH ×2 (09:50→21:07)
[2022-04-12] MEDS: DOCUSATE SODIUM 100 MG CAPSULE PO SCH ×2 (09:50→21:27)
[2022-04-12] MEDS: APIXABAN 5 MG TABLET PO SCH ×2 (09:50→21:07)
[2022-04-12] MEDS: ATORVASTATIN 10 MG TABLET PO SCH (09:51)
[2022-04-12] MEDS: VITAMIN D3 25 MCG TABLET PO SCH (09:51)
[2022-04-12] MEDS: FOLIC ACID 1 MG TABLET PO SCH (09:51)
[2022-04-12] MEDS: ALLOPURINOL 100 MG TABLET PO SCH (09:51)
[2022-04-12] MEDS: CALCIUM (OYSTER SHELL) 500 MG TABLET PO SCH (09:52)
[2022-04-12] MEDS: HYDROXYCHLOROQUINE 200 MG TABLET PO SCH ×2 (09:53→21:07)
[2022-04-12] MEDS: Brimonidine [Alphagan P] 0.1 % drops OP SCH ×2 (10:00→21:27)
[2022-04-12] MEDS: Pilocarpine Hcl 5 mg tablet PO SCH (10:00)
[2022-04-12] MEDS: CEFEPIME 1 GM VIAL IV SCH ×2 (10:04→21:07)
--- NOTE | 2022-04-12 18:28 | General Surgery Consult Note ---
HPI Date of Consult Consult Date: 04/12/22 Requesting physician: Hoang Cruz Primary Care Provider: Thao Gordillo Consult Narrative Patient Information: Note initiated : 04/12/22 at 6:25 pm Service Date, if different from initiated Date: [] Patient: Tera Jaramillo 77 y/o M admitted on 04/11/22 for Right foot pain. Chief Complaint: [] Chief complaint: CSSSI, DFU Right plantar. JOSE ANTONIO. Reason for consult: Evaluation and wound care tretament of DFU. cc:: Reviewed HPI / Progress / consult notes. I saw this gentleman along with Leatha Brady RNpatient care provider nurse. Reviewed POC with Dr. Cruz. CC: Hoang Cruz Integumentary Integumentary: Present wounds (Stage 5 Plantar DFU anterior forefoot. with ce llulitis dorsal foot and lower leg. ) Neurological Neurological: Present weakness (Diabetes peripheral neuropathy.) PFSH PFSH All Active Problems Laceration (Chronic) Encounter for removal of sutures (Chronic) Costochondral pain (Chronic) Bleeding from varicose veins of lower extremity (Chronic) Anticoagulation adequate with anticoagulant therapy (Chronic) Abnormal antibody titer (Chronic) Adenomatous colon polyp (Chronic) Anemia (Chronic) Anticoagulant prescribed (Chronic) Aortic regurgitation (Chronic) Arthralgia (Chronic) Aspiration of liquid (Chronic) Benign colonic polyp (Chronic) Chondrosarcoma (Chronic) Cough (Chronic) Dissection of thoracoabdominal aorta (Chronic) Edema (Chronic) Elevated serum free T4 level (Chronic) Encounter for long-term (current) use of high-risk medication (Chronic) Encounter for long-term use of opiate analgesic (Chronic) Encounter for monitoring long-term proton pump inhibitor therapy (Chronic) Essential (primary) hypertension (Chronic) GERD without esophagitis (Chronic) GI bleed (Chronic) Hereditary and idiopathic neuropathy (Chronic) History of prostate cancer (Chronic) Hyperlipidemia (Chronic) PAULINA (iron deficiency anemia) (Chronic) Infected sebaceous cyst (Chronic) Influenza vaccine needed (Chronic) joint terminal attack controller (current) use of non-steroidal anti-inflammatories (nsaid) (Chronic) Need for vaccination with 13-polyvalent pneumococcal conjugate vaccine (Chronic) Ongoing pain (Chronic) Overweight (Chronic) Paroxysmal atrial fibrillation (Chronic) Recurrent cold sores (Chronic) Right shoulder pain (Chronic) Stage III chronic kidney disease (Chronic) Superficial thrombophlebitis (Chronic) Venous insufficiency (Chronic) 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) Adenomatous polyp (Chronic) History of arthritis (Chronic) Multiple pulmonary nodules determined by computed tomography of lung (Chronic) Displaced spiral fracture of shaft of femur (Chronic) Fracture of plateau of left tibia (Chronic) Positive occult stool blood test (Chronic) Prostate cancer (Chronic) 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) Superficial varicosities (Chronic) Ruptured varicose vein (Chronic) Polyarthralgia (Chronic) Rheumatoid arthritis (Chronic) Osteopenia (Chronic) Osteoarthritis (Chronic) Positive BOB (antinuclear antibody) (Chronic) Elevated parathyroid hormone (Chronic) Decreased GFR (Chronic) Pulmonary nodules (Chronic) Cellulitis (Chronic) History of anticoagulant use (Chronic) Varicose vein of leg (Chronic) Acute dyspnea (Chronic) COVID-19 (Chronic) Acute dehydration (Chronic) Rheumatoid nodules (Chronic) Chronic kidney disease (Chronic) Malignant melanoma (Chronic) Hyperuricemia (Chronic) High serum potassium level (Acute) Diuretic-induced hypokalemia (Acute) Gout (Chronic) Blood potassium level greater than 5.0 mEq/L (Acute) Cellulitis (Acute) JOSE ANTONIO (acute kidney injury) (Acute) Medical History Abnormal antibody titer Acute dehydration Acute dyspnea Acute post-traumatic stress disorder Adenomatous colon polyp Adenomatous polyp Anemia Anticoagulant prescribed Anticoagulation adequate with anticoagulant therapy Aortic regurgitation Repair at time of TAA repair Arthralgia Aspiration of liquid Benign colonic polyp Bleeding from varicose veins of lower extremity Cellulitis Chondrosarcoma Chronic kidney disease Constrictive pericarditis Costochondral pain Cough COVID-19 Decreased GFR 01/13/20 GFR 50 Displaced spiral fracture of shaft of femur Dissection of thoracoabdominal aorta Edema Elevated parathyroid hormone Elevated serum free T4 level Encounter for long-term (current) use of high-risk medication Encounter for long-term use of opiate analgesic Encounter for monitoring long-term proton pump inhibitor therapy Encounter for removal of sutures Essential (primary) hypertension Fracture of plateau of left tibia GERD without esophagitis GI bleed Hereditary and idiopathic neuropathy History of anticoagulant use History of arthritis History of prostate cancer Hyperlipidemia PAULINA (iron deficiency anemia) Infected sebaceous cyst Influenza vaccine needed Laceration nursing home (current) use of non-steroidal anti-inflammatories (nsaid) Malignant melanoma Left mid-back Multiple pulmonary nodules determined by computed tomography of lung Need for vaccination with 13-polyvalent pneumococcal conjugate vaccine Ongoing pain Osteoarthritis Osteopenia Overweight Paroxysmal atrial fibrillation Polyarthralgia Positive BOB (antinuclear antibody) Positive occult stool blood test Prostate cancer Pulmonary nodules Recurrent cold sores Rheumatoid arthritis Rheumatoid nodules Right shoulder pain Ruptured varicose vein Stage III chronic kidney disease GFR 60 => 45 cc/min over the past 20 yrs given catastrophic TAA and repair. Due to desire to keep BP low, diuretic therapy and RAASI therapy, superimposed prerenal azotemic state. 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 History of right shoulder replacement History of tonsillectomy S/P pericardial surgery remove pericardium, constrictive pericarditis Family History Other Aortic aneurysm Breast cancer Malignant melanoma Osteoporosis Prostate cancer Social History marital status: service: Yes occupational status: retired smoking status: Never smoker alcohol intake frequency: former alcohol drinker MEDS/ALLERGIES Home Medications and Allergies Home Medications Medication Instructions Recorded Confirmed Type labetalol 100 mg tablet 300 mg PO BID 08/14/15 04/11/22 History omeprazole 20 mg capsule,delayed 20 mg PO DAILY 08/14/15 04/11/22 History release apixaban 5 mg tablet (Eliquis) 5 mg PO BID 04/05/16 04/11/22 History multivitamin (Multi-Day tablet) 1 tab-cap PO QDAY 04/05/16 04/11/22 History atorvastatin 10 mg tablet 5 mg PO QDAY 11/27/16 04/11/22 History duloxetine 20 mg capsule,delayed 40 mg PO QHS 01/16/19 04/11/22 History release hydroxychloroquine 200 mg tablet 200 mg PO BID #60 tabs 01/16/19 04/11/22 Rx digoxin 125 mcg (0.125 mg) tablet 125 mcg PO QDAY 09/30/20 04/11/22 History magnesium 400 mg .Route BID 09/30/20 04/11/22 History pramipexole 0.125 mg tablet See Rx Instructions PO QDAY 09/30/20 04/11/22 History lisinopril 20 mg tablet 20 mg PO QDAY 04/07/21 04/11/22 History pilocarpine HCl 5 mg tablet 10 mg PO DAILY 04/07/21 04/11/22 History brimonidine 0.1 % eye drops 1 drp ophthalmic (eye) BID 04/13/21 04/11/22 History (Alphagan P) calcium carbonate 600 mg-vitamin 1,000 cap PO QDAY 04/13/21 04/11/22 History D3 25 mcg (1,000 unit) capsule cholecalciferol (vitamin D3) 1,250 2,000 unit PO DAILY 06/07/21 04/11/22 History mcg (50,000 unit) capsule vitamin B complex 1 tab PO DAILY 06/07/21 04/11/22 History docusate sodium 100 mg capsule 100 mg PO BID #20 caps 06/13/21 04/11/22 Rx (Dulcolax Stool Softener (docusate)) oxycodone 5 mg tablet 5 mg PO Q6H PRN pain #10 tabs 06/13/21 04/11/22 Rx ascorbic acid (vitamin C) 500 mg 1 g PO BID 07/18/21 04/11/22 History tablet clonidine HCl 0.3 mg tablet 0.3 mg PO QDAY 07/18/21 04/11/22 History ergocalciferol (vitamin D2) 50 mcg 50 mcg PO QMONTH 07/18/21 04/11/22 History (2,000 unit) capsule furosemide 80 mg tablet See Rx Instructions PO BID 01/16/22 04/11/22 History metolazone 2.5 mg tablet 2.5 mg PO QDAY 01/16/22 04/11/22 History potassium chloride 20 mEq 40 meq PO TID Diuretic induced 01/16/22 04/11/22 Rx tablet,extended release hypokalemia #540 tabs allopurinol 300 mg tablet 300 mg PO QDAY #30 tabs 03/13/22 04/11/22 Rx folic acid 1 mg PO DAILY 04/11/22 04/11/22 History Allergies Allergy/AdvReac Type Severity Reaction Status Date / Time spironolactone Allergy Severe Swelling Verified 04/11/22 14:50 eplerenone Allergy Unknown Unknown Verified 04/11/22 14:50 irbesartan [From Avapro] Allergy Unknown Unknown Verified 04/11/22 14:50 lansoprazole [From Prevacid] Allergy Unknown Unknown Verified 04/11/22 14:50 valsartan [From Diovan] Allergy Unknown Unknown Verified 04/11/22 14:50 hydrocodone AdvReac Mild Vomiting Verified 04/12/22 09:26 Physical Examination Vital Signs Vital signs: Temp Pulse Resp BP Pulse Ox O2 Del Method 97.6 F 81 12 112/59 93 Room Air 04/12/22 16:00 04/12/22 16:00 04/12/22 16:00 04/12/22 16:00 04/12/22 16:00 04/12/22 16:00 General physical appearance General physical exam: well developed, well nourished, no distress and no pain Eyes Eye exam: PERRL and normal ocular movement ENT ENT exam: normal pinna, normal nares, normal mucosa and no congestion Head Head exam IM: Present atraumatic and normocephalic Neck Neck exam: no masses and no venous distension Cardiovascular Cardiovascular exam IM: Present normal rate and rhythm and systolic murmur Respiratory Respiratory exam: normal expansion and clear to auscultation Abdomen Abdomen: Present soft, non tender and bowel sounds Integumentary Integumentary: Present other (Stage 5 DFU anterior mid plantar with periwound callus. Soft tissue edema cellulits dorsal foot. Extends to lower anterior leg. ) Neurologic Neurologic: Present other (Diabetic peripheral neuropathy) Psychiatric Psychiatric: Present oriented to time, oriented to person, oriented to place, speech is normal and memory intact Results Labs 04/12/22 05:17 04/12/22 05:16 Labs: Abnormal lab results 04/12/22 04/12/22 04/12/22 Range/Units 05:16 05:17 05:17 RBC 3.25 L (4.63-6.08) M/mcL Hgb 9.3 L (13.7-17.5) g/dL Hct 29.9 L (40.1-51.0) % RDW 16.5 H (11.5-14.5) % Immature Gran % (Auto) 0.7 H (0.0-0.5) % Lymph % (Auto) 8.9 L (15.5-49.0) % Lymph # (Auto) 0.67 L (1.50-4.80) K/mcL BUN 71 H (8-23) mg/dL Creatinine 2.4 H (0.7-1.2) mg/dL Calcium 8.5 L (8.6-10.4) mg/dL Lactate Dehydrogenase 229 H (135-225) U/L Total Protein 5.5 L (5.9-8.4) gm/dL Albumin 2.9 L (3.2-5.2) gm/dL Procalcitonin 0.38 H (<0.10) ng/mL Diabetes panel 04/12/22 Range/Units 05:16 Sodium 138 (133-145) mmol/L Potassium 4.7 (3.3-5.1) mmol/L Chloride 101 (96-108) mmol/L Carbon Dioxide 27 (22-30) mmol/L BUN 71 H (8-23) mg/dL Creatinine 2.4 H (0.7-1.2) mg/dL Glucose 96 (70-105) mg/dL Calcium 8.5 L (8.6-10.4) mg/dL AST 20 (<40) U/L ALT 23 (<40) U/L Alkaline Phosphatase 88 (39-117) U/L Total Protein 5.5 L (5.9-8.4) gm/dL Albumin 2.9 L (3.2-5.2) gm/dL Triglycerides 39 (<150) mg/dL Calcium panel 04/12/22 Range/Units 05:16 Calcium 8.5 L (8.6-10.4) mg/dL Phosphorus 4.1 (2.5-4.5) mg/dL Albumin 2.9 L (3.2-5.2) gm/dL Pituitary panel 04/12/22 Range/Units 05:16 Sodium 138 (133-145) mmol/L Potassium 4.7 (3.3-5.1) mmol/L Chloride 101 (96-108) mmol/L Carbon Dioxide 27 (22-30) mmol/L BUN 71 H (8-23) mg/dL Creatinine 2.4 H (0.7-1.2) mg/dL Glucose 96 (70-105) mg/dL Calcium 8.5 L (8.6-10.4) mg/dL Adrenal panel 04/12/22 Range/Units 05:16 Sodium 138 (133-145) mmol/L Potassium 4.7 (3.3-5.1) mmol/L Chloride 101 (96-108) mmol/L Carbon Dioxide 27 (22-30) mmol/L BUN 71 H (8-23) mg/dL Creatinine 2.4 H (0.7-1.2) mg/dL Glucose 96 (70-105) mg/dL Calcium 8.5 L (8.6-10.4) mg/dL Total Bilirubin 0.5 (0.1-1.0) mg/dL AST 20 (<40) U/L ALT 23 (<40) U/L Alkaline Phosphatase 88 (39-117) U/L Total Protein 5.5 L (5.9-8.4) gm/dL Albumin 2.9 L (3.2-5.2) gm/dL All other labs normal. Imaging Additional studies: Reviewed lab results, CT of leg. A/P Narrative A/P Narrative: Assessment: CSSSI RIGHT foot plantar DFU Stage 5 RLE Cellulitis JOSE ANTONIO on CKD PAF on anticoagulants. H/O Aortic Stent RA HTN DM2 Gout and Obesity Plan of Treatment: Plan: Agree with ongoing medial management, Wound examined. POC reviewed with nursing staff. Will review imaging study of foot. Later debridement and deep tissue cultures. Will do this at bedside with assistance from RN Time Spent With Patient Time: Total time spent is greater than 50% in coordination of care (as documented) at patient's floor/unit and/or counseling patient: Initial: Total time with patient: Less than 40 minutes
[2022-04-12] MEDS: LABETALOL 100 MG TABLET PO SCH (21:06)
[2022-04-12] MEDS: DULoxetine 20 MG CAPSULE PO SCH (21:06)
[2022-04-13] MEDS: oxyCODONE HCL 5 MG TABLET PO PRN ×3 (05:18→18:08)
[2022-04-13] MEDS: CLINDAMYCIN IN 0.9 % SOD CHLOR 600 MG/50 ML BAG IV SCH (05:19)
[2022-04-13] MEDS: 0.9 % SODIUM CHLORIDE 10 ML SYRINGE IV SCH ×3 (05:20→20:31)
--- NOTE | 2022-04-13 07:16 | Internal Med Progress Note ---
SUBJECTIVE Subjective Patient information: Note initiated : 04/13/22 at 7:14 am Service Date, if different from initiated Date: [] Patient: Tera Jaramillo 77 y/o M admitted on 04/11/22 for Right foot pain. Chief Complaint: [] Interval history: History of present illness: Mr. Jaramillo is a 77 year old M Presents the ED with right foot pain and swelling as well as bleeding that has been going on for 5 days. Patient states about 4 5 days ago he noticed a blood blister on the sole of his foot. The blood blister eventually opened up and started bleeding. He denies stepping on anything or trauma to the foot. Over the following days he developed increasing redness and swelling throughout the foot as well as tenderness. He has had chills but denies fevers. In the ED patient was evaluated mildly tachycardic. Found have acute kidney injury. Elevated procalcitonin. Mildly elevated potassium. CT of the foot showing showed moderate cellulitis in the calf and soft tissues. His procalcitonin was elevated 0.5. Per the ED physician the infection has spread up to about his knee. And given the extensive ED and the acute kidney injury that was also noted. Admission was asked. Creatinine 3.6 on [id number]. Lactate unremarkable. 04/12 Patient states he slept okay. No new complaints. Been evaluated by Dr. Mike today. Anemia. Hyperkalemia improving. Renal function little better. Follow-up PCT. Wound care recommendations. Continue IV antibiotics and pending cultures Follow-up dig level currently holding. 04/13 Patient reports relatively poor sleep. Renal function and proving. Bilateral leg edema. We will try dose of Lasix with albumin. Patient undergo bedside I&D today by Dr. Mike. Review of Systems: denies headache/fever/chills/nausea/vomiting/chest or abdominal pain/cough/dyspnea/diarrhea. Otherwise see above. PHYSICAL EXAM: General: Alert, Awake, No acute Distress, obese Eyes/N/T: EOMI, no scleral icterus, Head/Neck: neck supple, full ROM, CV: irreg, No murmurs, Pulm: Clear b/l, no wheezing/rhonchi/rales, no respiratory distress Abd: soft, nontender, +BS x4 Ext: no clubbing/cyanosis. b/l LE edema worse on Right. RLE erythema/tenderness from foot to calf improving Neuro: Alert, no focal deficits, moves all extremities, sensations intact b/l upper/lower Psychiatric: Skin: warm/dry, normal color Constitutional Vitals: Vital Signs Temp Pulse Resp BP Pulse Ox O2 Del Method 97.9 F 80 20 116/63 94 Room Air 04/13/22 03:59 04/13/22 03:59 04/13/22 03:59 04/13/22 03:59 04/13/22 03:59 04/13/22 03:59 Period Temp Pulse Resp BP Sys/Barraza Pulse Ox O2 Del Method O2 Flow Rate Last 24 Hr 97.6 F-98.6 F 54-105 12-20 109-130/59-65 93-96 Room Air-Room Air Intake and Output 04/12/22 04/13/22 04/13/22 19:59 03:59 11:59 Intake Total 530 450 350 Output Total 350 Balance 530 100 350 Weight 100.153 kg Intake & Output: Intake & Output 04/12/22 04/13/22 04/13/22 19:59 03:59 11:59 Intake Total 530 450 350 Output Total 350 Balance 530 100 350 Weight 100.153 kg Intake: IV 50 50 50 Oral 480 400 300 Output: Void Amount 350 Other: Meal Dinner Percent of Meal Consumed 100% Feeding Ability Independent Urine Appearance Clear Urine Color Yellow # Voids 1 OBJ DATA Labs 04/12/22 05:17 04/12/22 05:16 Labs: Abnormal Lab Results 04/12/22 04/12/22 04/12/22 05:17 05:17 05:16 RBC 3.25 L Hgb 9.3 L Hct 29.9 L POC Hct RDW 16.5 H Immature Gran % (Auto) 0.7 H Lymph % (Auto) 8.9 L Peach % (Auto) Lymph # (Auto) 0.67 L Peach # (Auto) WBC Morphology Vacuolated Neuts Toxic Granulation RBC Morphology Hypochromasia Anisocytosis POC VBG pO2 POC VBG HCO3 POC VBG Total CO2 POC Venous O2 Sat POC VBG Base Excess POC Potassium POC BUN BUN 71 H Creatinine 2.4 H POC Creatinine POC Glucose Calcium 8.5 L POC WB Ioniz Calcium Lactate Dehydrogenase 229 H Total Protein 5.5 L Albumin 2.9 L Procalcitonin 0.38 H Digoxin 04/11/22 04/11/22 04/11/22 09:20 09:20 09:20 RBC Hgb Hct POC Hct RDW Immature Gran % (Auto) Lymph % (Auto) Peach % (Auto) Lymph # (Auto) Peach # (Auto) WBC Morphology Abnormal A Vacuolated Neuts 1+ A Toxic Granulation 1+ A RBC Morphology Abnormal A Hypochromasia 1+ A Anisocytosis 1+ A POC VBG pO2 POC VBG HCO3 POC VBG Total CO2 POC Venous O2 Sat POC VBG Base Excess POC Potassium POC BUN BUN Creatinine POC Creatinine POC Glucose Calcium POC WB Ioniz Calcium Lactate Dehydrogenase Total Protein Albumin Procalcitonin 0.50 H Digoxin 2.0 H* 04/11/22 04/11/22 04/11/22 09:20 09:13 09:10 RBC 3.30 L Hgb 9.6 L Hct 30.5 L POC Hct 27.0 L RDW 16.6 H Immature Gran % (Auto) Lymph % (Auto) 9.5 L Peach % (Auto) 14.2 H Lymph # (Auto) 0.74 L Peach # (Auto) 1.11 H WBC Morphology Vacuolated Neuts Toxic Granulation RBC Morphology Hypochromasia Anisocytosis POC VBG pO2 48 H POC VBG HCO3 28.2 H POC VBG Total CO2 30.0 H POC Venous O2 Sat 83.0 H POC VBG Base Excess 4.0 H* POC Potassium 5.6 H POC BUN 83 H BUN Creatinine POC Creatinine 3.6 H POC Glucose 123 H Calcium POC WB Ioniz Calcium 1.11 L Lactate Dehydrogenase Total Protein Albumin Procalcitonin Digoxin Meds: Medications Acetaminophen (Acetaminophen 325 Mg Tablet) 650 mg PO Q6HP PRN PRN Reason: PAIN/FEVER > 101 Albuterol/Ipratropium (Ipratropium/Albuterol 3 Ml Ampul.Neb) 3 ml NEB Q4HP PRN PRN Reason: Shortness Of Breath Allopurinol (Allopurinol 100 Mg Tablet) 50 mg PO QDAY [facility] Last Admin: 04/12/22 09:51 Dose: 50 mg Apixaban (Apixaban 5 Mg Tablet) 5 mg PO BID [facility] Last Admin: 04/12/22 21:07 Dose: 5 mg Atorvastatin Calcium (Atorvastatin 10 Mg Tablet) 5 mg PO QDAY [facility] Last Admin: 04/12/22 09:51 Dose: 5 mg Calcium Carbonate/Glycine (Calcium (Oyster Shell) 500 Mg Tablet) 1,000 mg PO QDAY [facility] Last Admin: 04/12/22 09:52 Dose: 1,000 mg Cefepime HCl (Cefepime 1 Gm Vial) 1 gm IV Q12H [facility]; Protocol Last Admin: 04/12/22 21:07 Dose: 1 gm Clonidine HCl (Clonidine Hcl 0.1 Mg Tablet) 0.3 mg PO QDAY [facility] Last Admin: 04/12/22 09:50 Dose: 0.3 mg Clonidine HCl (Clonidine Hcl 0.1 Mg Tablet) 0.2 mg PO HS [facility] Last Admin: 04/12/22 21:07 Dose: 0.2 mg Docusate Sodium (Docusate Sodium 100 Mg Capsule) 100 mg PO BID [facility] Last Admin: 04/12/22 21:27 Dose: Not Given Duloxetine HCl (Duloxetine 20 Mg Capsule) 40 mg PO QHS [facility] Last Admin: 04/12/22 21:06 Dose: 40 mg Ergocalciferol (Ergocalciferol (Vitamin D2) 50,000 Unit Capsule) 50,000 unit PO MONTHLY [facility] Folic Acid (Folic Acid 1 Mg Tablet) 1 mg PO DAILY [facility] Last Admin: 04/12/22 09:51 Dose: 1 mg Hydroxychloroquine Sulfate (Hydroxychloroquine 200 Mg Tablet) 200 mg PO BID [facility] Last Admin: 04/12/22 21:07 Dose: 200 mg Potassium Chloride 40 meq/ (Dextrose) 520 mls @ 130 mls/hr IV UD PRN PRN Reason: Potassium < 3 Magnesium Sulfate (Magnesium Sulfate) 2 gm in 50 mls @ 50 mls/hr IV UD PRN PRN Reason: Magnesium </= 1.6 Labetalol HCl (Labetalol 100 Mg Tablet) 300 mg PO BID [facility] Last Admin: 04/12/22 21:06 Dose: 300 mg Metoprolol Tartrate (Metoprolol Tartrate 5 Mg/5 Ml Vial) 5 mg IV Q2HP PRN PRN Reason: Tachyarrhythmias HR>110 Omeprazole (Omeprazole 20 Mg Capsule) 20 mg PO QAMAC [facility] Last Admin: 04/12/22 07:29 Dose: 20 mg Ondansetron HCl (Ondansetron 4 Mg/2 Ml Vial) 4 mg IV Q4HP PRN PRN Reason: Nausea And Vomiting Oxycodone HCl (Oxycodone Hcl 5 Mg Tablet) 5 mg PO Q6H PRN; Protocol PRN Reason: pain Last Admin: 04/13/22 05:18 Dose: 5 mg Brimonidine [ Alphagan P] 0.1 % Drops 1 dose OP BID [facility] Last Admin: 04/12/22 21:27 Dose: 1 dose Pilocarpine Hcl 5 Mg (Tablet) 2 dose PO DAILY [facility] Last Admin: 04/12/22 10:00 Dose: Not Given Polyethylene Glycol (Polyethylene Glycol 3350 17 Gm Packet) 17 gm PO DAILYP PRN PRN Reason: Constipation Potassium Chloride (Potassium Chloride 20 Meq Tablet) 40 meq PO UD PRN PRN Reason: Potssium is 3-3.5 Potassium Chloride (Potassium Chloride 20 Meq Tablet) 40 meq PO UD PRN PRN Reason: Potassium < 3 Senna (Sennosides 1 Tablet) 2 tab PO DAILYP PRN PRN Reason: Constipation Sodium Chloride (0.9 % Sodium Chloride 10 Ml Syringe) 10 ml IV Q8 [facility] Last Admin: 04/13/22 05:20 Dose: 10 ml Vitamin D (Vitamin D3 25 Mcg Tablet) 50 mcg PO DAILY [facility] Last Admin: 04/12/22 09:51 Dose: 50 mcg A/P Narrative A/P Narrative: A: *RLE cellulitis: -no abscess on imaging *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: *Hyperkalemia, mild:pt had been on potassium supp -improved *h/o CAD w/cabg: on eliquis/statin *PAF: on eliquis/digoxin/BB *h/o diastolic (III) cardiac dysfxn *RA: On hydrochloroquine *HTN/HLD: *Anemia, chronic: *GERD, Gout: *Obesity: BMI 31 P: -IV abx, pending WC/BC, mrsa screen neg -wound care team for bedside debridement today -IVF d/c, f/u renal fxn, uop, i/o -f/u potassium and other electrolytes -cont statin -dig level elevated, hold digoxin initially, restarting pending f/u level -started clonidine, restart labetalol, hold ACEI for soft BP and JOSE ANTONIO and hyperkalemia -d/c home potassium -PT/OT -CM for placement needs -ppx: eliquis / home ppi Plan of Treatment: Plan: Agree with ongoing medial management, Wound examined. POC reviewed with nursing staff. Will review imaging study of foot. Later debridement and deep tissue cultures. Will do this at bedside with assistance from RN Time Spent With Patient Time: Total time spent is greater than 50% in coordination of care (as documented) at patient's floor/unit and/or counseling patient: Subsequent: Total time with patient: 35 - 49 minutes QUALITY VTE Deep Vein Thrombosis/Pulmonary Embolism Present on Admission: No
[2022-04-13 07:18] LABS: ALT/SGPT 26 U/L (<40); AST/SGOT 23 U/L (<40); Albumin 2.9 gm/dL (3.2-5.2); Alkaline Phosphatase 89 U/L (39-117); Bilirubin,Direct 0.2 mg/dL (<0.3); Bilirubin,Total 0.6 mg/dL (0.1-1.0); Blood Urea Nitrogen 52 mg/dL (8-23); Calcium 8.8 mg/dL (8.6-10.4); Carbon Dioxide 27 mmol/L (22-30); Chloride 102 mmol/L (96-108); Globulin 2.9 gm/dL (2.2-3.7); Glomerular Filtration Rate 41; Glucose 107 mg/dL (70-105); Lactate Dehydrogenase 225 U/L (135-225); Phosphorous 3.5 mg/dL (2.5-4.5); Triglycerides 51 mg/dL (<150); Uric Acid 5.3 mg/dL (2.5-8.0)
[2022-04-13] MEDS: OMEPRAZOLE 20 MG CAPSULE PO SCH (07:23)
[2022-04-13] MEDS: FOLIC ACID 1 MG TABLET PO SCH (08:31)
[2022-04-13] MEDS: VITAMIN D3 25 MCG TABLET PO SCH (08:31)
[2022-04-13] MEDS: DOCUSATE SODIUM 100 MG CAPSULE PO SCH ×2 (08:32→20:31)
[2022-04-13] MEDS: LABETALOL 100 MG TABLET PO SCH ×2 (08:32→20:32)
[2022-04-13] MEDS: APIXABAN 5 MG TABLET PO SCH ×2 (08:32→20:31)
[2022-04-13] MEDS: ATORVASTATIN 10 MG TABLET PO SCH (08:32)
[2022-04-13] MEDS: CALCIUM (OYSTER SHELL) 500 MG TABLET PO SCH (08:32)
[2022-04-13] MEDS: cloNIDine HCL 0.1 MG TABLET PO SCH ×2 (08:33→20:32)
[2022-04-13] MEDS: HYDROXYCHLOROQUINE 200 MG TABLET PO SCH ×2 (08:34→20:31)
[2022-04-13] MEDS: Pilocarpine Hcl 5 mg tablet PO SCH (08:34)
[2022-04-13] MEDS: Brimonidine [Alphagan P] 0.1 % drops OP SCH ×2 (08:34→20:33)
[2022-04-13] MEDS: CEFEPIME 1 GM VIAL IV SCH ×2 (08:37→20:31)
[2022-04-13] MEDS: ALLOPURINOL 100 MG TABLET PO SCH (08:39)
[2022-04-13] MEDS ORDERED: FUROSEMIDE 40 MG/4 ML VIAL IV ONE (10:13)
[2022-04-13] MEDS ORDERED: ALBUMIN HUMAN 12.5 GM/50 ML VIAL IV ONE (10:13)
--- NOTE | 2022-04-13 12:27 | Discharge Summary ---
Discharge Provider Provider IMPORTANT FOLLOW-UP INFORMATION FOR PCP: P: -abx -f/u with Dr. Mike -d/c home potassium; may need to be restarted but at lower dose. Patient information: Note initiated : 04/13/22 at 12:25 pm Service Date, if different from initiated Date: [] Patient: Tera Jaramillo 77 y/o M admitted on 04/11/22 for Right foot pain. Chief Complaint: [] Date of admission: 04/11/22 13:59 Primary care physician: Thao Gordillo Consults: 04/11/22 Consult to Physician [CONS] Stat Comment: Consulting Provider: Hoang Cruz Reason For Exam: Physician to Consult 04/12/22 09:10 Consult to Physician [CONS] Routine Comment: Wound care Consulting Provider: Roshan Mike Reason For Exam: Physician to Consult COURSE Hospital Course Hospital course: History of present illness: Mr. Jaramillo is a 77 year old M Presents the ED with right foot pain and swelling as well as bleeding that has been going on for 5 days. Patient states about 4 5 days ago he noticed a blood blister on the sole of his foot. The blood blister eventually opened up and started bleeding. He denies stepping on anything or trauma to the foot. Over the following days he dev eloped increasing redness and swelling throughout the foot as well as tenderness. He has had chills but denies fevers. In the ED patient was evaluated mildly tachycardic. Found have acute kidney inj ury. Elevated procalcitonin. Mildly elevated potassium. CT of the foot showing showed moderate cellulitis in the calf and soft tissues. His procalcitonin was elevated 0.5. Per the ED physician the infection has spread up to about his knee. And given the extensive ED and the acute kidney injury that was also noted. Admission was asked. Creatinine 3.6 on [id number]. Lactate unremarkable. 04/12 Patient states he slept okay. No new complaints. Been evaluated by Dr. Mike today. Anemia. Hyperkalemia improving. Renal function little better. Follow-up PCT. Wound care recommendations. Continue IV antibiotics and pending cultures Follow-up dig level currently holding. 04/13 Patient reports relatively poor sleep. Renal function and proving. Bilateral leg edema. We will try dose of Lasix with albumin. Patient undergo bedside I&D today by Dr. Mike. A: *RLE cellulitis: -no abscess on imaging *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: *Hyperkalemia, mild:pt had been on potassium supp -improved *h/o CAD w/cabg: on eliquis/statin *PAF: on eliquis/digoxin/BB *h/o diastolic (III) cardiac dysfxn *RA: On hydrochloroquine *HTN/HLD: *Anemia, chronic: *GERD, Gout: *Obesity: BMI 31 P: -abx -f/u with Dr. Mike -d/c home potassium Discharge diagnosis: Right lower extremity cellulitis acute on chronic kidney disease Secondary discharge diagnosis: Hyperkalemia CAD PAF diastolic heart failure RA hypertension anemia obesity Time Spent with Patient Time attestation: Total time spent providing and/or coordinating discharge services: Time spent: Greater than 30 minutes EXAM Constitutional Vitals: Temp Pulse Resp BP Pulse Ox O2 Del Method 97.9 F 93 H 20 125/65 93 Room Air 04/13/22 07:40 04/13/22 07:40 04/13/22 07:40 04/13/22 07:40 04/13/22 07:40 04/13/22 07:46 Discharge Data Data Completed and Pending Labs on day of discharge: Labs from last 24 hours 04/13/22 04/13/22 05:47 05:47 Sodium 139 Potassium 3.9 Chloride 102 Carbon Dioxide 27 Anion Gap 10.0 BUN 52 H Creatinine 1.6 H GFR Calculation 41 Glucose 107 H Uric Acid 5.3 Calcium 8.8 Phosphorus 3.5 Magnesium 2.2 Total Bilirubin 0.6 Direct Bilirubin 0.2 GGT 28 AST 23 ALT 26 Alkaline Phosphatase 89 Lactate Dehydrogenase 225 Total Protein 5.8 L Albumin 2.9 L Globulin 2.9 Albumin/Globulin Ratio 1.0 Triglycerides 51 Digoxin 1.0 Preliminary micro results at discharge 04/11/22 09:46 Blood Culture - Preliminary Blood 04/11/22 09:43 Blood Culture - Preliminary Blood Discharge Plan Patient/Caregiver Discharge Instructions Activity: increase activity as tolerated Diet: Regular Diet Prescriptions: Continued apixaban [Eliquis] 5 mg tablet 5 mg PO BID multivitamin [Multi-Day] tablet 1 tab-cap PO QDAY lisinopril 20 mg tablet 20 mg PO QDAY pilocarpine HCl 5 mg tablet 10 mg PO DAILY calcium carbonate-vitamin D3 600 mg-25 mcg (1,000 unit) capsule 1,000 cap PO QDAY Alphagan P 0.1 % drops 1 drp ophthalmic (eye) BID ergocalciferol (vitamin D2) 50 mcg (2,000 unit) capsule 50 mcg PO QMONTH Rx Instructions: takes 50,000 units monthly. metolazone 2.5 mg tablet 2.5 mg PO QDAY Patient Comments: Dose as of 01/16/2022 furosemide 80 mg tablet See Rx Instructions PO BID Rx Instructions: 240 mg in AM and 120 mg at 4 PM orally twice a day; Take 3 tabs every morning and take 1.5 tablets in the afternoon atorvastatin 10 mg tablet 5 mg PO QDAY duloxetine 20 mg capsule,delayed release(DR/EC) 40 mg PO QHS hydroxychloroquine 200 mg tablet 200 mg PO BID Qty: 60 3RF magnesium 400 mg .Route BID Rx Instructions: bid pramipexole 0.125 mg tablet See Rx Instructions PO QDAY Rx Instructions: 5 tabs PO daily; digoxin 125 mcg (0.125 mg) tablet 125 mcg PO QDAY ascorbic acid (vitamin C) 500 mg tablet 1 g PO BID Rx Instructions: takes 600 mg two times a day. allopurinol 300 mg tablet 300 mg PO QDAY Qty: 30 2RF labetalol 100 MG tablet 300 mg PO BID omeprazole 20 MG capsule 20 mg PO DAILY clonidine HCl 0.3 mg tablet 0.3 mg PO QDAY Rx Instructions: 0.2 MG IN THE EVENING vitamin B complex Tablet Extended Release 1 tab PO DAILY cholecalciferol (vitamin D3) 50,000 unit capsule 2,000 unit PO DAILY Rx Instructions: 50,000 unit PO Q Week x 12 weeks; then decrease to 50,000 units per month thereafter. oxycodone 5 mg tablet 5 mg PO Q6H PRN (Reason: pain) Qty: 10 0RF docusate sodium [Dulcolax Stool Softener (dss)] 100 mg capsule 100 mg PO BID Qty: 20 0RF folic acid 1 mg 1 mg PO DAILY Discontinued potassium chloride 20 mEq tablet extended release 40 meq PO TID Qty: 540 3RF Follow Up Plan Follow up with: Roshan Mike MD [Physician] - Thao Gordillo MD [Primary Care Provider] - Patient Disposition: Home Health Service Plan of Treatment: Plan: Agree with ongoing medial management, Wound examined. POC reviewed with nursing staff. Will review imaging study of foot. Later debridement and deep tissue cultures. Will do this at bedside with assistance from RN Prognosis: Fair Overall status at discharge: patient is progressing back to baseline QUALITY VTE Deep Vein Thrombosis/Pulmonary Embolism Present on Admission: No
--- NOTE | 2022-04-13 13:36 | General Surgery Progress Note ---
SUBJECTIVE Subjective Patient information: Note initiated : 04/13/22 at 1:22 pm Service Date, if different from initiated Date: [] Patient: Tera Jaramillo 77 y/o M admitted on 04/11/22 for Right foot pain. Chief Complaint: [] Additional PMFSH (Level 3 Only): Patient seen with Santiago Bennett RN, Wound Care Nurse. Spoke with family members in patient's room. He mentions about sensation around wound site.. Progressing well CSSSI has demarcated well and is now ready for open debridement. Constitutional Vitals: Vital Signs Temp Pulse Resp BP Pulse Ox O2 Del Method 97.9 F 93 H 20 125/65 93 Room Air 04/13/22 07:40 04/13/22 07:40 04/13/22 07:40 04/13/22 07:40 04/13/22 07:40 04/13/22 07:46 Period Temp Pulse Resp BP Sys/Barraza Pulse Ox O2 Del Method O2 Flow Rate Last 24 Hr 97.6 F-98.6 F 80-94 12-20 109-125/59-65 93-94 Room Air-Room Air Intake and Output 04/13/22 04/13/22 04/13/22 03:59 11:59 19:59 Intake Total 450 400 Output Total 350 Balance 100 400 Intake & Output: Intake & Output 04/13/22 04/13/22 04/13/22 03:59 11:59 19:59 Intake Total 450 400 Output Total 350 Balance 100 400 Intake: IV 50 100 Oral 400 300 Output: Void Amount 350 Other: Urine Appearance Clear Urine Color Yellow # Voids 1 Exam: AVSS. No changes CARMEN. Overall feels better. No changes CARMEN. Significant improvement in inflammation changes. RIGHT lower leg and dorsal foot edema is down. Creatinine is 1.6. Dig level is normal. Hct and Platelets stable. Reviewed all imaging studies. RIGHT plantar forefoot wound site is open READY for open debridement and pulse lavage Tissue cultures and biopsies intra op. A/P Narrative A/P Narrative: Assessment: Satisfactory resolution of CSSSI RIGHT leg and forefoot Needs OPEN surgical debridement and pulse lavage. Deep tissue cultures and biopsies and open packing. Spoke with patient and family. They agree. Spoke with Dr. Cruz, Hospitalist and Nurse MARCI Matamoros. Notified OR. (Spoke with Tahira) Plan of Treatment: Plan: AWAIT call back from OR and anesthesia. Later keep patient NPO, pre op. Time Spent With Patient Time: Total time spent is greater than 50% in coordination of care (as documented) at patient's floor/unit and/or counseling patient: Initial: Total time with patient: Less than 40 minutes
[2022-04-13] MEDS: DULoxetine 20 MG CAPSULE PO SCH (20:32)
[2022-04-14] MEDS: oxyCODONE HCL 5 MG TABLET PO PRN ×3 (05:03→17:29)
[2022-04-14] MEDS: 0.9 % SODIUM CHLORIDE 10 ML SYRINGE IV SCH ×5 (05:04→22:09)
--- NOTE | 2022-04-14 07:24 | Internal Med Progress Note ---
SUBJECTIVE Subjective Patient information: Note initiated : 04/14/22 at 7:23 am Service Date, if different from initiated Date: [] Patient: Tera Jaramillo a 77 y/o M admitted on 04/11/22 for Right Foot Debridement of Plantar Wound-. Chief Complaint: [] Interval history: History of present illness: Mr. Jaramillo is a 77 year old M Presents the ED with right foot pain and swelling as well as bleeding that has been going on for 5 days. Patient states about 4 5 days ago he noticed a blood blister on the sole of his foot. The blood blister eventually opened up and started bleeding. He denies stepping on anything or trauma to the foot. Over the following days he developed increasing redness and swelling throughout the foot as well as tenderness. He has had chills but denies fevers. In the ED patient was evaluated mildly tachycardic. Found have acute kidney injury. Elevated procalcitonin. Mildly elevated potassium. CT of the foot showing showed moderate cellulitis in the calf and soft tissues. His procalcitonin was elevated 0.5. Per the ED physician the infection has spread up to about his knee. And given the extensive ED and the acute kidney injury that was also noted. Admission was asked. Creatinine 3.6 on [id number]. Lactate unremarkable. 04/12 Patient states he slept okay. No new complaints. Been evaluated by Dr. Mike today. Anemia. Hyperkalemia improving. Renal function little better. Follow-up PCT. Wound care recommendations. Continue IV antibiotics and pending cultures Follow-up dig level currently holding. 04/13 Patient reports relatively poor sleep. Renal function and improving. Bilateral leg edema. We will try dose of Lasix with albumin. Patient undergo bedside I&D today by Dr. Mike. 04/14 Patient states poor sleep again. But otherwise no new complaints. Awaiting surgical I&D. Monitor foot wound. Kidney function. Review of Systems: denies headache/fever/chills/nausea/vomiting/chest or abdominal pain/cough/dyspnea/diarrhea. Otherwise see above. PHYSICAL EXAM: General: Alert, Awake, No acute Distress, obese Eyes/N/T: EOMI, no scleral icterus, Head/Neck: neck supple, full ROM, CV: irreg, No murmurs, Pulm: Clear b/l, no wheezing/rhonchi/rales, no respiratory distress Abd: soft, nontender, +BS x4 Ext: no clubbing/cyanosis. b/l LE edema worse on Right. RLE erythema/tenderness from foot to calf improving Neuro: Alert, no focal deficits, moves all extremities, sensations intact b/l upper/lower Psychiatric: Skin: warm/dry, normal color Constitutional Vitals: Vital Signs Temp Pulse Resp BP Pulse Ox O2 Del Method 98.5 F 98 H 16 136/77 92 Room Air 04/14/22 03:00 04/14/22 03:00 04/14/22 03:00 04/14/22 03:00 04/14/22 03:00 04/14/22 03:00 Period Temp Pulse Resp BP Sys/Barraza Pulse Ox O2 Del Method O2 Flow Rate Last 24 Hr 97.9 F-98.9 F 70-98 16-20 107-136/56-77 92-95 Room Air-Room A ir Intake and Output 04/13/22 04/14/22 04/14/22 19:59 03:59 11:59 Intake Total 480 150 Output Total 575 225 Balance 480 -425 -225 Weight 104.462 kg Intake & Output: Intake & Output 04/13/22 04/14/22 04/14/22 19:59 03:59 11:59 Intake Total 480 150 Output Total 575 225 Balance 480 -425 -225 Weight 104.462 kg Intake: Oral 480 150 Output: Void Amount 575 225 Other: Meal Dinner ice cream x2 Percent of Meal Consumed 100% 100% Feeding Ability Independent Independent Urine Appearance Clear Clear Clear Urine Color Yellow Yellow Stool Size Small Small Stool Color Brown Stool Consistency Soft Soft # Voids 5 OBJ DATA Labs 04/12/22 05:17 04/13/22 05:47 Labs: Abnormal Lab Results 04/13/22 04/12/22 04/12/22 05:47 05:17 05:17 RBC 3.25 L Hgb 9.3 L Hct 29.9 L POC Hct RDW 16.5 H Immature Gran % (Auto) 0.7 H Lymph % (Auto) 8.9 L Nye % (Auto) Lymph # (Auto) 0.67 L Nye # (Auto) WBC Morphology Vacuolated Neuts Toxic Granulation RBC Morphology Hypochromasia Anisocytosis POC VBG pO2 POC VBG HCO3 POC VBG Total CO2 POC Venous O2 Sat POC VBG Base Excess POC Potassium POC BUN BUN 52 H Creatinine 1.6 H POC Creatinine Glucose 107 H POC Glucose Calcium POC WB Ioniz Calcium Lactate Dehydrogenase Total Protein 5.8 L Albumin 2.9 L Procalcitonin 0.38 H Digoxin 04/12/22 04/11/22 04/11/22 05:16 09:20 09:20 RBC Hgb Hct POC Hct RDW Immature Gran % (Auto) Lymph % (Auto) Nye % (Auto) Lymph # (Auto) Nye # (Auto) WBC Morphology Abnormal A Vacuolated Neuts 1+ A Toxic Granulation 1+ A RBC Morphology Abnormal A Hypochromasia 1+ A Anisocytosis 1+ A POC VBG pO2 POC VBG HCO3 POC VBG Total CO2 POC Venous O2 Sat POC VBG Base Excess POC Potassium POC BUN BUN 71 H Creatinine 2.4 H POC Creatinine Glucose POC Glucose Calcium 8.5 L POC WB Ioniz Calcium Lactate Dehydrogenase 229 H Total Protein 5.5 L Albumin 2.9 L Procalcitonin Digoxin 2.0 H* 04/11/22 04/11/22 04/11/22 09:20 09:20 09:13 RBC 3.30 L Hgb 9.6 L Hct 30.5 L POC Hct 27.0 L RDW 16.6 H Immature Gran % (Auto) Lymph % (Auto) 9.5 L Nye % (Auto) 14.2 H Lymph # (Auto) 0.74 L Nye # (Auto) 1.11 H WBC Morphology Vacuolated Neuts Toxic Granulation RBC Morphology Hypochromasia Anisocytosis POC VBG pO2 POC VBG HCO3 POC VBG Total CO2 POC Venous O2 Sat POC VBG Base Excess POC Potassium 5.6 H POC BUN 83 H BUN Creatinine POC Creatinine 3.6 H Glucose POC Glucose 123 H Calcium POC WB Ioniz Calcium 1.11 L Lactate Dehydrogenase Total Protein Albumin Procalcitonin 0.50 H Digoxin 04/11/22 09:10 RBC Hgb Hct POC Hct RDW Immature Gran % (Auto) Lymph % (Auto) Nye % (Auto) Lymph # (Auto) Nye # (Auto) WBC Morphology Vacuolated Neuts Toxic Granulation RBC Morphology Hypochromasia Anisocytosis POC VBG pO2 48 H POC VBG HCO3 28.2 H POC VBG Total CO2 30.0 H POC Venous O2 Sat 83.0 H POC VBG Base Excess 4.0 H* POC Potassium POC BUN BUN Creatinine POC Creatinine Glucose POC Glucose Calcium POC WB Ioniz Calcium Lactate Dehydrogenase Total Protein Albumin Procalcitonin Digoxin Meds: Medications Acetaminophen (Acetaminophen 325 Mg Tablet) 650 mg PO Q6HP PRN PRN Reason: PAIN/FEVER > 101 Albuterol/Ipratropium (Ipratropium/Albuterol 3 Ml Ampul.Neb) 3 ml NEB Q4HP PRN PRN Reason: Shortness Of Breath Allopurinol (Allopurinol 100 Mg Tablet) 50 mg PO QDAY [facility] Last Admin: 04/13/22 08:39 Dose: 50 mg Apixaban (Apixaban 5 Mg Tablet) 5 mg PO BID [facility] Last Admin: 04/13/22 20:31 Dose: 5 mg Atorvastatin Calcium (Atorvastatin 10 Mg Tablet) 5 mg PO QDAY [facility] Last Admin: 04/13/22 08:32 Dose: 5 mg Calcium Carbonate/Glycine (Calcium (Oyster Shell) 500 Mg Tablet) 1,000 mg PO QDAY [facility] Last Admin: 04/13/22 08:32 Dose: 1,000 mg Cefepime HCl (Cefepime 1 Gm Vial) 1 gm IV Q12H [facility]; Protocol Last Admin: 04/13/22 20:31 Dose: 1 gm Clonidine HCl (Clonidine Hcl 0.1 Mg Tablet) 0.3 mg PO QDAY [facility] Last Admin: 04/13/22 08:33 Dose: 0.3 mg Clonidine HCl (Clonidine Hcl 0.1 Mg Tablet) 0.2 mg PO HS [facility] Last Admin: 04/13/22 20:32 Dose: 0.2 mg Docusate Sodium (Docusate Sodium 100 Mg Capsule) 100 mg PO BID [facility] Last Admin: 04/13/22 20:31 Dose: 100 mg Duloxetine HCl (Duloxetine 20 Mg Capsule) 40 mg PO QHS [facility] Last Admin: 04/13/22 20:32 Dose: 40 mg Ergocalciferol (Ergocalciferol (Vitamin D2) 50,000 Unit Capsule) 50,000 unit PO MONTHLY [facility] Folic Acid (Folic Acid 1 Mg Tablet) 1 mg PO DAILY [facility] Last Admin: 04/13/22 08:31 Dose: 1 mg Hydroxychloroquine Sulfate (Hydroxychloroquine 200 Mg Tablet) 200 mg PO BID [facility] Last Admin: 04/13/22 20:31 Dose: 200 mg Potassium Chloride 40 meq/ (Dextrose) 520 mls @ 130 mls/hr IV UD PRN PRN Reason: Potassium < 3 Magnesium Sulfate (Magnesium Sulfate) 2 gm in 50 mls @ 50 mls/hr IV UD PRN PRN Reason: Magnesium </= 1.6 Labetalol HCl (Labetalol 100 Mg Tablet) 300 mg PO BID [facility] Last Admin: 04/13/22 20:32 Dose: 300 mg Metoprolol Tartrate (Metoprolol Tartrate 5 Mg/5 Ml Vial) 5 mg IV Q2HP PRN PRN Reason: Tachyarrhythmias HR>110 Omeprazole (Omeprazole 20 Mg Capsule) 20 mg PO QAMAC [facility] Last Admin: 04/13/22 07:23 Dose: 20 mg Ondansetron HCl (Ondansetron 4 Mg/2 Ml Vial) 4 mg IV Q4HP PRN PRN Reason: Nausea And Vomiting Oxycodone HCl (Oxycodone Hcl 5 Mg Tablet) 5 - 10 mg PO Q6HP PRN; Protocol PRN Reason: pain Last Admin: 04/14/22 05:03 Dose: 10 mg Brimonidine [ Alphagan P] 0.1 % Drops 1 dose OP BID [facility] Last Admin: 04/13/22 20:33 Dose: 1 dose Pilocarpine Hcl 5 Mg (Tablet) 2 dose PO DAILY [facility] Last Admin: 04/13/22 08:34 Dose: Not Given Polyethylene Glycol (Polyethylene Glycol 3350 17 Gm Packet) 17 gm PO DAILYP PRN PRN Reason: Constipation Potassium Chloride (Potassium Chloride 20 Meq Tablet) 40 meq PO UD PRN PRN Reason: Potssium is 3-3.5 Potassium Chloride (Potassium Chloride 20 Meq Tablet) 40 meq PO UD PRN PRN Reason: Potassium < 3 Scopolamine (Scopolamine 1 Patch Patch) 1 patch TOPICAL PREOP PRN PRN Reason: Nausea And Vomiting Stop: 04/14/22 23:59 Senna (Sennosides 1 Tablet) 2 tab PO DAILYP PRN PRN Reason: Constipation Sodium Chloride (0.9 % Sodium Chloride 10 Ml Syringe) 10 ml IV Q8 [facility] Last Admin: 04/14/22 05:04 Dose: 10 ml Vitamin D (Vitamin D3 25 Mcg Tablet) 50 mcg PO DAILY [facility] Last Admin: 04/13/22 08:31 Dose: 50 mcg A/P Narrative A/P Narrative: A: *RLE cellulitis: -no abscess on imaging *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: *Hyperkalemia, mild:pt had been on potassium supp -improved *h/o CAD w/cabg: on eliquis/statin *PAF: on eliquis/digoxin/BB *h/o diastolic (III) cardiac dysfxn *RA: On hydrochloroquine *HTN/HLD: *Anemia, chronic: *GERD, Gout: *Obesity: BMI 31 P: -IV abx, pending WC/BC, mrsa screen neg -wound care team, Surgical debridement today in OR -f/u renal fxn, uop, i/o -f/u potassium and other electrolytes -cont statin -dig level elevated, hold digoxin initially, restarting pending f/u level -started clonidine, restart labetalol, hold ACEI for soft BP and JOSE ANTONIO and hyper kalemia -d/c home potassium -PT/OT -CM for placement needs -ppx: eliquis / home ppi Plan of Treatment: Plan: AWAIT call back from OR and anesthesia. Later keep patient NPO, pre op. Time Spent With Patient Time: Total time spent is greater than 50% in coordination of care (as documented) at patient's floor/unit and/or counseling patient: Subsequent: Total time with patient: 35 - 49 minutes QUALITY VTE Deep Vein Thrombosis/Pulmonary Embolism Present on Admission: No
[2022-04-14] MEDS: CEFEPIME 1 GM VIAL IV SCH ×2 (08:45→22:08)
[2022-04-14] MEDS: LABETALOL 100 MG TABLET PO SCH ×2 (08:45→21:32)
[2022-04-14] MEDS: ATORVASTATIN 10 MG TABLET PO SCH (08:46)
[2022-04-14] MEDS: CALCIUM (OYSTER SHELL) 500 MG TABLET PO SCH (08:46)
[2022-04-14] MEDS: OMEPRAZOLE 20 MG CAPSULE PO SCH (08:46)
[2022-04-14] MEDS: DOCUSATE SODIUM 100 MG CAPSULE PO SCH ×2 (08:46→21:44)
[2022-04-14] MEDS: Pilocarpine Hcl 5 mg tablet PO SCH (08:46)
[2022-04-14] MEDS: HYDROXYCHLOROQUINE 200 MG TABLET PO SCH ×2 (08:46→21:33)
[2022-04-14] MEDS: cloNIDine HCL 0.1 MG TABLET PO SCH ×2 (08:46→21:36)
[2022-04-14] MEDS: FOLIC ACID 1 MG TABLET PO SCH (08:46)
[2022-04-14] MEDS: Brimonidine [Alphagan P] 0.1 % drops OP SCH ×2 (08:46→20:19)
[2022-04-14] MEDS: APIXABAN 5 MG TABLET PO SCH ×2 (08:46→21:37)
[2022-04-14] MEDS: VITAMIN D3 25 MCG TABLET PO SCH (08:47)
[2022-04-14] MEDS: ALLOPURINOL 100 MG TABLET PO SCH (08:47)
[2022-04-14] MEDS ORDERED: GLYCOPYRROLATE 0.2 MG/ML VIAL IV ONE (12:22)
[2022-04-14] MEDS ORDERED: DEXAMETHASONE 10 MG/ML VIAL ONE (12:22)
[2022-04-14] MEDS ORDERED: KETAMINE 50 MG/ML Syringe (ANEST) IV ONE (12:22)
[2022-04-14] MEDS ORDERED: fentaNYL 100 MCG/2 ML VIAL IV ONE (12:22)
[2022-04-14] MEDS ORDERED: MAGNESIUM SULFATE 2 GM/50 ML BAG IV ONE (12:22)
[2022-04-14] MEDS ORDERED: ONDANSETRON 4 MG/2 ML VIAL ONE (12:22)
[2022-04-14] MEDS ORDERED: PHENYLephrine 1 MG/10 ML SYRINGE (ANEST) ONE (12:22)
[2022-04-14] MEDS ORDERED: PROPOFOL 200 MG/20 ML VIAL IV ONE (12:22)
[2022-04-14] MEDS ORDERED: LIDOCAINE HCL/PF 100 MG/5 ML SYRINGE IV ONE (12:22)
[2022-04-14] MEDS ORDERED: GENTAMICIN SULFATE 800 MG/20 ML VIAL IR ONE (12:30)
[2022-04-14] MEDS ORDERED: LABETALOL 5 MG/ML ML IV PRN (12:36)
[2022-04-14] MEDS ORDERED: METOPROLOL TARTRATE 5 MG/5 ML VIAL IV PRN (12:36)
[2022-04-14] MEDS ORDERED: ACETAMINOPHEN 1,000 MG/100 ML BAG IV ONE (12:36)
[2022-04-14] MEDS ORDERED: NALOXONE HCL 0.4 MG/ML VIAL IV PRN (12:36)
[2022-04-14] MEDS ORDERED: METHOCARBAMOL 1,000 MG/10 ML VIAL IV PRN (12:36)
[2022-04-14] MEDS ORDERED: IPRATROPIUM/ALBUTEROL 3 ML AMPUL.NEB NEB PRN (12:36)
[2022-04-14] MEDS ORDERED: LACTATED RINGERS 250 ML IV PRN (12:36)
[2022-04-14] MEDS ORDERED: LACTATED RINGERS 1,000 ML IV SCH (12:45)
[2022-04-14] MEDS ORDERED: SCOPOLAMINE 1 PATCH PATCH TOPICAL PRN (13:00)
[2022-04-14] MEDS: fentaNYL 100 MCG/2 ML VIAL IV PRN ×2 (13:43→13:49)
--- NOTE | 2022-04-14 13:50 | General Surgery Procedure Note ---
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 Cellulitis, CSSSI Post-op diagnosis: same Procedure: Excision debridement, pulse lavage irrigation, soft tissue c/s and bone biopsy plantar head of 1st metatarsal bone. 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 Grafts/Implants: NONE Anesthesia: GLMA Surgeon: Roshan Mike Estimated blood loss: 20 Condition: stable Disposition: other (Operation well tolerated.)
--- NOTE | 2022-04-14 15:10 | Operative Note ---
DATE OF OPERATION: 04/14/2022 DATE OF PROCEDURE: 04/14/2022 PREOPERATIVE DIAGNOSES: Sepsis syndrome due to infected neuropathic right plantar ulcer under first toe MPJ with cellulitis and complicated skin and skin structure infection involving the dorsal foot and lower half of the leg. POSTOPERATIVE DIAGNOSES: Sepsis syndrome due to infected neuropathic right plantar ulcer under first toe MPJ with cellulitis and complicated skin and skin structure infection involving the dorsal foot and lower half of the leg. PROCEDURE: 1. Excision, debridement of the plantar ulcer wound. 2. Pulse lavage irrigation. 3. Soft tissue specimens for culture and sensitivity and bone biopsy from the right plantar first metatarsal head. FINDINGS: Neuropathic stage IV ulcer, dimensions 3 x 3.5 x 2 cm. ANESTHESIA: General laryngeal mask airway. SURGEON: Roshan Mike MD VERIFIER: Cb Palomo CRNA. ESTIMATED BLOOD LOSS: 20 mL. INSTRUMENT COUNTS: Count of swabs, instruments, and needles was reported to be correct. CONDITION: Operation was well tolerated. INDICATIONS: This gentleman was admitted from the Emergency Room with sepsis and cellulitis involving foot and lower right leg. He was treated aggressively with IV fluids, broad-spectrum antibiotics, and local wound care. After improvement of his renal functions and stabilization of his hemodynamic status, he is taken to the operating room for surgical debridement, deep tissue biopsies and cultures. PROCEDURE NOTE IN DETAIL: After obtaining informed consent, patient was taken to the operating room. He was anesthetized uneventfully in supine position using laryngeal mask airway. Timeout was called. Intravenous antibiotics were already started on the floor. Right lower extremity was widely cleaned, prepped, and draped from the knee down to the toes. We first proceeded to open the wound site, which was already draining, mostly serous fluid. The devitalized skin in the periwound region was sharply excised with pickup and Metzenbaum scissors. Hemostat was used to take down the necrotic soft tissue. This led to a cavity in the deep subcutaneous tissue space. Digitally, the loculations were broken down and later all the necrotic tissue was sharply excised with pickup and sharp scissors. Pulse lavage irrigation was used to wash out this area. Three liters of normal saline was used mixed with 800 mg of gentamicin solution. After washout of all the necrotic tissue, yellow normal-appearing adipose tissue was encountered. At this time, palpation of the wound base revealed metatarsal head. This was further palpated and a practice representative area was chosen. We used a bone aspiration biopsy Isaias Sheany needle. Production Quality Analyst segment of one was biopsied. Hemostasis was achieved with pressure and elevation. Once again, wound site was irrigated with warm normal saline. Dressings consisted of Adaptic gauze, Betadine-soaked Kerlix gauze reinforced with normal gauze and a Kerlix bandage secured in place with Adaptic and Dillon bandages, respectively. Operation was well tolerated. Patient was taken to and then to med-surg [facility] in stable condition. I went to med/surg floor and met with the patient and his after he had fully recovered from surgery and anesthesia. I updated them of intraoperative findings. VD:giovanna Job ID: [id number] Doc ID: [id number] Roshan Mike MD MTDD
[2022-04-14] MEDS: DULoxetine 20 MG CAPSULE PO SCH (21:37)
[2022-04-15] MEDS: oxyCODONE HCL 5 MG TABLET PO PRN ×5 (00:31→23:46)
[2022-04-15] MEDS: 0.9 % SODIUM CHLORIDE 10 ML SYRINGE IV SCH ×4 (05:53→20:46)
[2022-04-15] MEDS: OMEPRAZOLE 20 MG CAPSULE PO SCH (06:52)
--- NOTE | 2022-04-15 07:22 | Internal Med Progress Note ---
SUBJECTIVE Subjective Patient information: Note initiated : 04/15/22 at 7:18 am Service Date, if different from initiated Date: [] Patient: Tera Jaramillo a 77 y/o M admitted on 04/14/22 for Right Foot Debridement of Plantar Wound-. Chief Complaint: [] Interval history: History of present illness: Mr. Jaramillo is a 77 year old M Presents the ED with right foot pain and swelling as well as bleeding that has been going on for 5 days. Patient states about 4 5 days ago he noticed a blood blister on the sole of his foot. The blood blister eventually opened up and started bleeding. He denies stepping on anything or trauma to the foot. Over the following days he developed increasing redness and swelling throughout the foot as well as tenderness. He has had chills but denies fevers. In the ED patient was evaluated mildly tachycardic. Found have acute kidney injury. Elevated procalcitonin. Mildly elevated potassium. CT of the foot showing showed moderate cellulitis in the calf and soft tissues. His procalcitonin was elevated 0.5. Per the ED physician the infection has spread up to about his knee. And given the extensive ED and the acute kidney injury that was also noted. Admission was asked. Creatinine 3.6 on [id number]. Lactate unremarkable. 04/12 Patient states he slept okay. No new complaints. Been evaluated by Dr. Mike today. Anemia. Hyperkalemia improving. Renal function little better. Follow-up PCT. Wound care recommendations. Continue IV antibiotics and pending cultures Follow-up dig level currently holding. 04/13 Patient reports relatively poor sleep. Renal function and improving. Bilateral leg edema. We will try dose of Lasix with albumin. Patient undergo bedside I&D today by Dr. Mike. 04/14 Patient states poor sleep again. But otherwise no new complaints. Awaiting surgical I&D. Monitor foot wound. Kidney function. 04/15 Patient status post I&D yesterday by Dr. Mike. Patient feeling okay today. No new complaints. Awaiting surgical cultures. Review of Systems: denies headache/fever/chills/nausea/vomiting/chest or abdominal pain/cough/dyspnea/diarrhea. Otherwise see above. PHYSICAL EXAM: General: Alert, Awake, No acute Distress, obese Eyes/N/T: EOMI, no scleral icterus, Head/Neck: neck supple, full ROM, CV: irreg, No murmurs, Pulm: Clear b/l, no wheezing/rhonchi/rales, no respiratory distress Abd: soft, nontender, +BS x4 Ext: no clubbing/cyanosis. b/l LE edema worse on Right. RLE in dressings Neuro: Alert, no focal deficits, moves all extremities, sensations intact b/l upper/lower Psychiatric: Skin: warm/dry, normal color Constitutional Vitals: Vital Signs Temp Pulse Resp BP Pulse Ox O2 Del Method O2 Flow Rate 97.6 F 66 14 128/65 95 Room Air 1 04/15/22 06:53 04/15/22 06:53 04/15/22 06:53 04/15/22 06:53 04/15/22 06:53 04/15/22 06:53 04/14/22 15:00 Period Temp Pulse Resp BP Sys/Barraza Pulse Ox O2 Del Method O2 Flow Rate Last 24 Hr 97.5 F-98.9 F 30-170 11-20 105-136/55-93 88-98 Nasal Cannula- Simple Mask 0-6 Intake and Output 04/14/22 04/15/22 04/15/22 19:59 03:59 11:59 Intake Total 1979 800 Output Total 445 325 350 Balance 1535 -325 450 Weight 104.462 kg 103.147 kg Intake & Output: Intake & Output 04/14/22 04/15/22 04/15/22 19:59 03:59 11:59 Intake Total 1979 800 Output Total 445 325 350 Balance 1535 -325 450 Weight 104.462 kg 103.147 kg Intake: Nourishment/Supplement quantity 240 (ml) IV 100 Oral 240 800 IV - Manual Only 1400 Output: Void Amount 425 325 350 Emesis 20 Other: Meal Dinner Percent of Meal Consumed 100% Feeding Ability Independent Nourishment/Supplement name Arginaid Urine Appearance Clear Clear Clear Urine Color Yellow Light Maira Yellow Tea Colored Urine Odor Normal Normal # Voids 2 OBJ DATA Labs 04/12/22 05:17 04/13/22 05:47 Labs: Abnormal Lab Results 04/13/22 05:47 BUN 52 H Creatinine 1.6 H Glucose 107 H Total Protein 5.8 L Albumin 2.9 L Meds: Medications Acetaminophen (Acetaminophen 325 Mg Tablet) 650 mg PO Q6HP PRN PRN Reason: PAIN/FEVER > 101 Albuterol/Ipratropium (Ipratropium/Albuterol 3 Ml Ampul.Neb) 3 ml NEB Q4HP PRN PRN Reason: Shortness Of Breath Allopurinol (Allopurinol 100 Mg Tablet) 50 mg PO QDAY [facility] Last Admin: 04/14/22 08:47 Dose: Not Given Apixaban (Apixaban 5 Mg Tablet) 5 mg PO BID [facility] Last Admin: 04/14/22 21:37 Dose: 5 mg Atorvastatin Calcium (Atorvastatin 10 Mg Tablet) 5 mg PO QDAY [facility] Last Admin: 04/14/22 08:46 Dose: Not Given Calcium Carbonate/Glycine (Calcium (Oyster Shell) 500 Mg Tablet) 1,000 mg PO QDAY [facility] Last Admin: 04/14/22 08:46 Dose: Not Given Cefepime HCl (Cefepime 1 Gm Vial) 1 gm IV Q12H [facility]; Protocol Last Admin: 04/14/22 22:08 Dose: 1 gm Clonidine HCl (Clonidine Hcl 0.1 Mg Tablet) 0.3 mg PO QDAY [facility] Last Admin: 04/14/22 08:46 Dose: 0.3 mg Clonidine HCl (Clonidine Hcl 0.1 Mg Tablet) 0.2 mg PO HS [facility] Last Admin: 04/14/22 21:36 Dose: 0.2 mg Docusate Sodium (Docusate Sodium 100 Mg Capsule) 100 mg PO BID [facility] Last Admin: 04/14/22 21:44 Dose: Not Given Duloxetine HCl (Duloxetine 20 Mg Capsule) 40 mg PO QHS [facility] Last Admin: 04/14/22 21:37 Dose: 40 mg Ergocalciferol (Ergocalciferol (Vitamin D2) 50,000 Unit Capsule) 50,000 unit PO MONTHLY [facility] Folic Acid (Folic Acid 1 Mg Tablet) 1 mg PO DAILY [facility] Last Admin: 04/14/22 08:46 Dose: Not Given Hydroxychloroquine Sulfate (Hydroxychloroquine 200 Mg Tablet) 200 mg PO BID [facility] Last Admin: 04/14/22 21:33 Dose: 200 mg Potassium Chloride 40 meq/ (Dextrose) 520 mls @ 130 mls/hr IV UD PRN PRN Reason: Potassium < 3 Magnesium Sulfate (Magnesium Sulfate) 2 gm in 50 mls @ 50 mls/hr IV UD PRN PRN Reason: Magnesium </= 1.6 Labetalol HCl (Labetalol 100 Mg Tablet) 300 mg PO BID [facility] Last Admin: 04/14/22 21:32 Dose: 300 mg Metoprolol Tartrate (Metoprolol Tartrate 5 Mg/5 Ml Vial) 5 mg IV Q2HP PRN PRN Reason: Tachyarrhythmias HR>110 Omeprazole (Omeprazole 20 Mg Capsule) 20 mg PO QAMAC [facility] Last Admin: 04/15/22 06:52 Dose: 20 mg Ondansetron HCl (Ondansetron 4 Mg/2 Ml Vial) 4 mg IV Q4HP PRN PRN Reason: Nausea And Vomiting Oxycodone HCl (Oxycodone Hcl 5 Mg Tablet) 5 - 10 mg PO Q6HP PRN; Protocol PRN Reason: pain Last Admin: 04/15/22 06:52 Dose: 10 mg Brimonidine [ Alphagan P] 0.1 % Drops 1 dose OP BID [facility] Last Admin: 04/14/22 20:19 Dose: 1 dose Pilocarpine Hcl 5 Mg (Tablet) 2 dose PO DAILY [facility] Last Admin: 04/14/22 08:46 Dose: Not Given Polyethylene Glycol (Polyethylene Glycol 3350 17 Gm Packet) 17 gm PO DAILYP PRN PRN Reason: Constipation Potassium Chloride (Potassium Chloride 20 Meq Tablet) 40 meq PO UD PRN PRN Reason: Potssium is 3-3.5 Potassium Chloride (Potassium Chloride 20 Meq Tablet) 40 meq PO UD PRN PRN Reason: Potassium < 3 Senna (Sennosides 1 Tablet) 2 tab PO DAILYP PRN PRN Reason: Constipation Sodium Chloride (0.9 % Sodium Chloride 10 Ml Syringe) 10 ml IV Q8 [facility] Last Admin: 04/15/22 05:53 Dose: 10 ml Sodium Chloride (0.9 % Sodium Chloride 10 Ml Syringe) 10 ml IV Q8 [facility] Last Admin: 04/15/22 05:53 Dose: Not Given Vitamin D (Vitamin D3 25 Mcg Tablet) 50 mcg PO DAILY [facility] Last Admin: 04/14/22 08:47 Dose: Not Given A/P Narrative A/P Narrative: A: *RLE (foot/ankle/leg) cellulitis: s/p I&D (04/15) -no abscess on imaging *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: *Hyperkalemia, mild:pt had been on potassium supp -improved *h/o CAD w/cabg: on eliquis/statin *PAF: on eliquis/digoxin/BB *h/o diastolic (III) cardiac dysfxn *RA: On hydrochloroquine *HTN/HLD: *Anemia, chronic: *GERD, Gout: *Obesity: BMI 31 P: -IV abx, pending surgical WC/BC, mrsa screen neg -wound care team, -f/u renal fxn, uop, i/o -f/u potassium and other electrolytes -cont statin -dig level elevated on admit, held digoxin initially, restart -started clonidine, restart labetalol, held ACEI for soft BP and JOSE ANTONIO and hyperkalemia. monitor -d/c home potassium -PT/OT -CM for placement needs -ppx: eliquis / home ppi Plan of Treatment: Plan: AWAIT call back from OR and anesthesia. Later keep patient NPO, pre op. Time Spent With Patient Time: Total time spent is greater than 50% in coordination of care (as documented) at patient's floor/unit and/or counseling patient: Subsequent: Total time with patient: 35 - 49 minutes QUALITY VTE Deep Vein Thrombosis/Pulmonary Embolism Present on Admission: No
[2022-04-15] MEDS: CALCIUM (OYSTER SHELL) 500 MG TABLET PO SCH (08:44)
[2022-04-15] MEDS: FOLIC ACID 1 MG TABLET PO SCH (08:44)
[2022-04-15] MEDS: cloNIDine HCL 0.1 MG TABLET PO SCH ×2 (08:44→20:47)
[2022-04-15] MEDS: DOCUSATE SODIUM 100 MG CAPSULE PO SCH ×2 (08:44→20:46)
[2022-04-15] MEDS: LABETALOL 100 MG TABLET PO SCH ×2 (08:44→20:46)
[2022-04-15] MEDS: ALLOPURINOL 100 MG TABLET PO SCH (08:44)
[2022-04-15] MEDS: VITAMIN D3 25 MCG TABLET PO SCH (08:45)
[2022-04-15] MEDS: HYDROXYCHLOROQUINE 200 MG TABLET PO SCH ×2 (08:45→20:47)
[2022-04-15] MEDS: APIXABAN 5 MG TABLET PO SCH ×2 (08:45→20:46)
[2022-04-15] MEDS: ATORVASTATIN 10 MG TABLET PO SCH (08:45)
[2022-04-15] MEDS: Pilocarpine Hcl 5 mg tablet PO SCH (08:47)
[2022-04-15] MEDS: Brimonidine [Alphagan P] 0.1 % drops OP SCH ×2 (08:47→20:47)
[2022-04-15] MEDS: CEFEPIME 1 GM VIAL IV SCH ×2 (08:53→20:46)
[2022-04-15 09:26] LABS: Basophils # (Auto) 0.01 K/mcL (0.00-0.30); Basophils % (Auto) 0.1 % (0.0-2.0); Eosinophils # (Auto) 0 K/mcL (0.00-0.70); Eosinophils % (Auto) 0 % (0.0-7.0); Hematocrit 30.1 % (40.1-51.0); Hemoglobin 9.4 g/dL (13.7-17.5); Lymphocytes # (Auto) 0.57 K/mcL (1.50-4.80); Lymphocytes % (Auto) 5.7 % (15.5-49.0); Mean Cell Volume 91.5 fL (80.0-100.0); Mean Corpuscular HGB Conc 31.2 g/dL (31.0-36.0); Mean Platelet Volume 9.7 fL (8.8-12.5); Monocytes # (Auto) 0.95 K/mcL (0.10-0.90); Monocytes % (Auto) 9.5 % (1.0-12.0); Neutrophils % (Auto) 83.8 % (38.0-78.0); Platelet Count 257 K/mcL (140-440); RBC 3.29 M/mcL (4.63-6.08); Red Cell Distribution Width 16.1 % (11.5-14.5); WBC 10.1 K/mcL (4.5-11.0)
[2022-04-15 09:48] LABS: ALT/SGPT 27 U/L (<40); AST/SGOT 24 U/L (<40); Albumin 3.1 gm/dL (3.2-5.2); Albumin/Globulin Ratio 1.1 (1.0-2.3); Alkaline Phosphatase 90 U/L (39-117); Bilirubin,Direct < 0.2 mg/dL (0-0.3); Bilirubin,Total 0.4 mg/dL (0.1-1.0); Blood Urea Nitrogen 50 mg/dL (8-23); Calcium 8.6 mg/dL (8.6-10.4); Carbon Dioxide 27 mmol/L (22-30); Chloride 100 mmol/L (96-108); Globulin 2.8 gm/dL (2.2-3.7); Glomerular Filtration Rate 49; Glucose 118 mg/dL (70-105); Lactate Dehydrogenase 219 U/L (135-225); Phosphorous 3.9 mg/dL (2.5-4.5); Triglycerides 45 mg/dL (<150)
--- NOTE | 2022-04-15 12:21 | General Surgery Progress Note ---
SUBJECTIVE Subjective Patient information: Note initiated : 04/15/22 at 12:14 pm Service Date, if different from initiated Date: [] Patient: Tera Jaramillo 77 y/o M admitted on 04/14/22 for Right Foot Debridement of Plantar Wound-. Chief Complaint: [] Additional PMFSH (Level 3 Only): 04/15/2022 POD # 1. Progressing well. OOB on chair. .RIGHT foot elevated. Dressing CDI Constitutional Vitals: Vital Signs Temp Pulse Resp BP Pulse Ox O2 Del Method O2 Flow Rate 97.6 F 70 16 127/68 95 Room Air 1 04/15/22 11:56 04/15/22 11:56 04/15/22 11:56 04/15/22 11:56 04/15/22 11:56 04/15/22 11:56 04/14/22 15:00 Period Temp Pulse Resp BP Sys/Barraza Pulse Ox O2 Del Method O2 Flow Rate Last 24 Hr 97.5 F-98.9 F 30-170 11-20 105-136/59-93 88-98 Nasal Cannula- Simple Mask 0-6 Intake and Output 04/15/22 04/15/22 04/15/22 03:59 11:59 19:59 Intake Total 800 Output Total 325 350 Balance -325 450 Weight 227 lb 6.4 oz Intake & Output: Intake & Output 04/15/22 04/15/22 04/15/22 03:59 11:59 19:59 Intake Total 800 Output Total 325 350 Balance -325 450 Weight 227 lb 6.4 oz Intake: Oral 800 Output: Void Amount 325 350 Other: Meal Breakfast Percent of Meal Consumed 100% Feeding Ability Independent Urine Appearance Clear Clear Urine Color Light Maira Yellow Urine Odor Normal Exam: AVSS. Unremarkable CARMEN. Right foot dressing CDI Culture and Bone biopsy results awaited. Spoke with [place] Physical therapist; Reg: Consult for NWB and rollabout scooter Evaluate and advise patient and advise his CG. Lab results reviewed. K and Cr are normal Will check A1C, Procalcitonin, CRP, TSH & Prealbumin A/P Narrative Plan of Treatment: Plan: Continue observation. Await input from Physical Therapy Re: Roll about scooter For primary change of dressing on Sunday04/17/2022 Time Spent With Patient Time: Total time spent is greater than 50% in coordination of care (as documented) at patient's floor/unit and/or counseling patient:
--- NOTE | 2022-04-15 13:04 | XRay Report ---
CLINICAL INFORMATION: Preop COMPARISON: 01/09/2021 TECHNIQUE: Portable FINDINGS: Moderate cardiomegaly is unchanged. Sternotomy changes again noted. Mediastinum and pulmonary vessels are normal. Scattered scarring or atelectasis in the lung bases. Tiny left pleural effusion noted. IMPRESSION: Moderate stable cardiomegaly and minor bibasilar atelectasis or fibrosis. No acute disease Interpreted and Authenticated by: Dre Franco 04/15/22
[2022-04-15] MEDS: DIGOXIN 125 MCG TABLET PO SCH (13:18)
[2022-04-15] MEDS: DULoxetine 20 MG CAPSULE PO SCH (20:47)
[2022-04-16] MEDS: 0.9 % SODIUM CHLORIDE 10 ML SYRINGE IV SCH ×3 (04:05→20:15)
[2022-04-16 06:16] LABS: Estimated Average Glucose(eAG) 120 mg/dL; Hemoglobin A1C 5.8 % Hgb (4.0-6.0)
[2022-04-16 06:50] LABS: Thyroid Stimulating Hormone 2.79 uIU/mL (0.27-5.01)
[2022-04-16 07:00] LABS: Prealbumin 13.2 mg/dL (20.0-40.0)
[2022-04-16] MEDS: OMEPRAZOLE 20 MG CAPSULE PO SCH (07:31)
[2022-04-16] MEDS: oxyCODONE HCL 5 MG TABLET PO PRN ×3 (07:31→20:17)
--- NOTE | 2022-04-16 07:42 | Internal Med Progress Note ---
SUBJECTIVE Subjective Patient information: Note initiated : 04/16/22 at 7:39 am Service Date, if different from initiated Date: [] Patient: Tera Jaramillo a 77 y/o M admitted on 04/14/22 for Right Foot Debridement of Plantar Wound-. Chief Complaint: [] Interval history: History of present illness: Mr. Jaramillo is a 77 year old M Presents the ED with right foot pain and swelling as well as bleeding that has been going on for 5 days. Patient states about 4 5 days ago he noticed a blood blister on the sole of his foot. The blood blister eventually opened up and started bleeding. He denies stepping on anything or trauma to the foot. Over the following days he developed increasing redness and swelling throughout the foot as well as tenderness. He has had chills but denies fevers. In the ED patient was evaluated mildly tachycardic. Found have acute kidney injury. Elevated procalcitonin. Mildly elevated potassium. CT of the foot showing showed moderate cellulitis in the calf and soft tissues. His procalcitonin was elevated 0.5. Per the ED physician the infection has spread up to about his knee. And given the extensive ED and the acute kidney injury that was also noted. Admission was asked. Creatinine 3.6 on speex-rd-cala. Lactate unremarkable. 04/12 Patient states he slept okay. No new complaints. Been evaluated by Dr. Mike today. Anemia. Hyperkalemia improving. Renal function little better. Follow-up PCT. Wound care recommendations. Continue IV antibiotics and pending cultures Follow-up dig level currently holding. 04/13 Patient reports relatively poor sleep. Renal function and improving. Bilateral leg edema. We will try dose of Lasix with albumin. Patient undergo bedside I&D today by Dr. Mike. 04/14 Patient states poor sleep again. But otherwise no new complaints. Awaiting surgical I&D. Monitor foot wound. Kidney function. 04/15 Patient status post I&D yesterday by Dr. Mike. Patient feeling okay today. No new complaints. Awaiting surgical cultures. 04/16 Continue close monitoring wound care given the extensive compromise of the wound and status postdebridement. States poor sleep but otherwise doing okay. No new complaints. Review of Systems: denies headache/fever/chills/nausea/vomiting/chest or abdominal pain/cough/dyspnea/diarrhea. Otherwise see above. PHYSICAL EXAM: General: Alert, Awake, No acute Distress, obese Eyes/N/T: EOMI, no scleral icterus, Head/Neck: neck supple, full ROM, CV: irreg, No murmurs, Pulm: Clear b/l, no wheezing/rhonchi/rales, no respiratory distress Abd: soft, nontender, +BS x4 Ext: no clubbing/cyanosis. b/l LE edema worse on Right. RLE in dressings Neuro: Alert, no focal deficits, moves all extremities, sensations intact b/l upper/lower Psychiatric: Skin: warm/dry, normal color Constitutional Vitals: Vital Signs Temp Pulse Resp BP Pulse Ox O2 Del Method O2 Flow Rate 97 F 70 16 135/72 95 Room Air 1 04/16/22 07:29 04/16/22 04:05 04/16/22 07:29 04/16/22 07:29 04/16/22 07:29 04/16/22 07:29 04/14/22 15:00 Period Temp Pulse Resp BP Sys/Barraza Pulse Ox O2 Del Method O2 Flow Rate Last 24 Hr 97 F-98.6 F 70-78 16-20 101-135/55-72 92-95 Room Air-Room Air Intake and Output 04/15/22 04/16/22 04/16/22 19:59 03:59 11:59 Intake Total 1280 300 Output Total 1000 1050 575 Balance 280 -1050 -275 Weight 106.957 kg Intake & Output: Intake & Output 04/15/22 04/16/22 04/16/22 19:59 03:59 11:59 Intake Total 1280 300 Output Total 1000 1050 575 Balance 280 -1050 -275 Weight 106.957 kg Intake: Oral 480 300 GI Tube Flush 800 Output: Void Amount 1000 1050 575 Other: Meal Dinner Percent of Meal Consumed 100% Feeding Ability Independent Urine Appearance Clear Clear Clear Urine Color Yellow Yellow Yellow Pale Urine Odor Normal OBJ DATA Labs 04/15/22 08:15 04/15/22 08:16 Labs: Abnormal Lab Results 04/16/22 04/15/22 04/15/22 05:24 08:16 08:15 RBC 3.29 L Hgb 9.4 L Hct 30.1 L RDW 16.1 H Immature Gran % (Auto) 0.9 H Neut % (Auto) 83.8 H Lymph % (Auto) 5.7 L Lymph # (Auto) 0.57 L Evans # (Auto) 0.95 H Immature Gran # 0.09 H Absolute Neutrophils 8.43 H BUN 50 H Creatinine 1.4 H Glucose 118 H Magnesium 2.7 H C-Reactive Protein 3.30 H Albumin 3.1 L Prealbumin 13.2 L Meds: Medications Acetaminophen (Acetaminophen 325 Mg Tablet) 650 mg PO Q6HP PRN PRN Reason: PAIN/FEVER > 101 Albuterol/Ipratropium (Ipratropium/Albuterol 3 Ml Ampul.Neb) 3 ml NEB Q4HP PRN PRN Reason: Shortness Of Breath Allopurinol (Allopurinol 100 Mg Tablet) 50 mg PO QDAY [facility] Last Admin: 04/15/22 08:44 Dose: 50 mg Apixaban (Apixaban 5 Mg Tablet) 5 mg PO BID [facility] Last Admin: 04/15/22 20:46 Dose: 5 mg Atorvastatin Calcium (Atorvastatin 10 Mg Tablet) 5 mg PO QDAY [facility] Last Admin: 04/15/22 08:45 Dose: 5 mg Calcium Carbonate/Glycine (Calcium (Oyster Shell) 500 Mg Tablet) 1,000 mg PO QDAY [facility] Last Admin: 04/15/22 08:44 Dose: 1,000 mg Cefepime HCl (Cefepime 1 Gm Vial) 1 gm IV Q12H [facility]; Protocol Last Admin: 04/15/22 20:46 Dose: 1 gm Clonidine HCl (Clonidine Hcl 0.1 Mg Tablet) 0.3 mg PO QDAY [facility] Last Admin: 04/15/22 08:44 Dose: 0.3 mg Clonidine HCl (Clonidine Hcl 0.1 Mg Tablet) 0.2 mg PO [facility] Last Admin: 04/15/22 20:47 Dose: 0.2 mg Digoxin (Digoxin 125 Mcg Tablet) 125 mcg PO QDAY@1400 [facility] Last Admin: 04/15/22 13:18 Dose: 125 mcg Docusate Sodium (Docusate Sodium 100 Mg Capsule) 100 mg PO BID [facility] Last Admin: 04/15/22 20:46 Dose: 100 mg Duloxetine HCl (Duloxetine 20 Mg Capsule) 40 mg PO QHS [facility] Last Admin: 02/18/23 20:47 Dose: 40 mg Ergocalciferol (Ergocalciferol (Vitamin D2) 50,000 Unit Capsule) 50,000 unit PO MONTHLY [facility] Folic Acid (Folic Acid 1 Mg Tablet) 1 mg PO DAILY [facility] Last Admin: 04/15/22 08:44 Dose: 1 mg Hydroxychloroquine Sulfate (Hydroxychloroquine 200 Mg Tablet) 200 mg PO BID [facility] Last Admin: 04/15/22 20:47 Dose: 200 mg Potassium Chloride 40 meq/ (Dextrose) 520 mls @ 130 mls/hr IV UD PRN PRN Reason: Potassium < 3 Magnesium Sulfate (Magnesium Sulfate) 2 gm in 50 mls @ 50 mls/hr IV UD PRN PRN Reason: Magnesium </= 1.6 Labetalol HCl (Labetalol 100 Mg Tablet) 300 mg PO BID [facility] Last Admin: 04/15/22 20:46 Dose: 300 mg Metoprolol Tartrate (Metoprolol Tartrate 5 Mg/5 Ml Vial) 5 mg IV Q2HP PRN PRN Reason: Tachyarrhythmias HR>110 Omeprazole (Omeprazole 20 Mg Capsule) 20 mg PO QAMAC [facility] Last Admin: 04/16/22 07:31 Dose: 20 mg Ondansetron HCl (Ondansetron 4 Mg/2 Ml Vial) 4 mg IV Q4HP PRN PRN Reason: Nausea And Vomiting Oxycodone HCl (Oxycodone Hcl 5 Mg Tablet) 5 - 10 mg PO Q6HP PRN; Protocol PRN Reason: pain Last Admin: 04/16/22 07:31 Dose: 10 mg Brimonidine [ Alphagan P] 0.1 % Drops 1 dose OP BID [facility] Last Admin: 04/15/22 20:47 Dose: 1 dose Pilocarpine Hcl 5 Mg (Tablet) 2 dose PO DAILY [facility] Last Admin: 04/15/22 08:47 Dose: Not Given Polyethylene Glycol (Polyethylene Glycol 3350 17 Gm Packet) 17 gm PO DAILYP PRN PRN Reason: Constipation Potassium Chloride (Potassium Chloride 20 Meq Tablet) 40 meq PO UD PRN PRN Reason: Potssium is 3-3.5 Potassium Chloride (Potassium Chloride 20 Meq Tablet) 40 meq PO UD PRN PRN Reason: Potassium < 3 Senna (Sennosides 1 Tablet) 2 tab PO DAILYP PRN PRN Reason: Constipation Sodium Chloride (0.9 % Sodium Chloride 10 Ml Syringe) 10 ml IV Q8 [facility] Last Admin: 04/16/22 04:05 Dose: 10 ml Vitamin D (Vitamin D3 25 Mcg Tablet) 50 mcg PO DAILY [facility] Last Admin: 04/15/22 08:45 Dose: 50 mcg A/P Narrative A/P Narrative: A: *RLE (foot/ankle/leg) cellulitis: s/p I&D (04/15) -no abscess on imaging -surgical cx with staph aureus *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: *Hyperkalemia, mild:pt had been on potassium supp -improved *h/o CAD w/cabg: on eliquis/statin *PAF: on eliquis/digoxin/BB *h/o diastolic (III) cardiac dysfxn *RA: On hydrochloroquine *HTN/HLD: *Anemia, chronic: *GERD, Gout: *Obesity: BMI 31 P: -IV cefepime, pending final surgical WC, mrsa screen neg -wound care team cont close monitoring and treatmen -f/u uop, i/o -f/u potassium and other electrolytes -cont statin -dig level elevated on admit, held digoxin initially, restarted -started clonidine, restart labetalol, held ACEI for soft BP and JOSE ANTONIO and hyperkalemia. monitor -d/c home potassium -PT/OT -CM for placement needs -ppx: eliquis / home ppi Plan of Treatment: Plan: Continue observation. Await input from Physical Therapy Re: Roll about scooter For primary change of dressing on Sunday04/17/2022 Time Spent With Patient Time: Total time spent is greater than 50% in coordination of care (as documented) at patient's floor/unit and/or counseling patient: Subsequent: Total time with patient: 35 - 49 minutes QUALITY VTE Deep Vein Thrombosis/Pulmonary Embolism Present on Admission: No
[2022-04-16] MEDS: CALCIUM (OYSTER SHELL) 500 MG TABLET PO SCH (09:18)
[2022-04-16] MEDS: ATORVASTATIN 10 MG TABLET PO SCH (09:19)
[2022-04-16] MEDS: VITAMIN D3 25 MCG TABLET PO SCH (09:19)
[2022-04-16] MEDS: cloNIDine HCL 0.1 MG TABLET PO SCH ×2 (09:19→20:16)
[2022-04-16] MEDS: ALLOPURINOL 100 MG TABLET PO SCH (09:19)
[2022-04-16] MEDS: DOCUSATE SODIUM 100 MG CAPSULE PO SCH ×2 (09:19→20:16)
[2022-04-16] MEDS: HYDROXYCHLOROQUINE 200 MG TABLET PO SCH ×2 (09:19→20:16)
[2022-04-16] MEDS: FOLIC ACID 1 MG TABLET PO SCH (09:19)
[2022-04-16] MEDS: Brimonidine [Alphagan P] 0.1 % drops OP SCH ×2 (09:20→20:10)
[2022-04-16] MEDS: CEFEPIME 1 GM VIAL IV SCH ×2 (09:20→20:15)
[2022-04-16] MEDS: LABETALOL 100 MG TABLET PO SCH ×2 (09:20→20:16)
[2022-04-16] MEDS: APIXABAN 5 MG TABLET PO SCH ×2 (09:20→20:17)
[2022-04-16] MEDS: Pilocarpine Hcl 5 mg tablet PO SCH (09:29)
[2022-04-16] MEDS: DIGOXIN 125 MCG TABLET PO SCH (14:17)
[2022-04-16] MEDS: DULoxetine 20 MG CAPSULE PO SCH (20:17)
[2022-04-17] MEDS: ACETAMINOPHEN 325 MG TABLET PO PRN ×2 (01:21→07:49)
[2022-04-17] MEDS: oxyCODONE HCL 5 MG TABLET PO PRN ×4 (02:21→20:19)
[2022-04-17] MEDS: 0.9 % SODIUM CHLORIDE 10 ML SYRINGE IV SCH ×3 (05:54→20:19)
[2022-04-17 07:20] LABS: Basophils # (Auto) 0.03 K/mcL (0.00-0.30); Basophils % (Auto) 0.3 % (0.0-2.0); Eosinophils # (Auto) 0.12 K/mcL (0.00-0.70); Eosinophils % (Auto) 1.3 % (0.0-7.0); Hematocrit 29.9 % (40.1-51.0); Hemoglobin 9.4 g/dL (13.7-17.5); Lymphocytes # (Auto) 0.74 K/mcL (1.50-4.80); Mean Corpuscular HGB Conc 31.4 g/dL (31.0-36.0); Mean Platelet Volume 9.7 fL (8.8-12.5); Monocytes # (Auto) 1.04 K/mcL (0.10-0.90); Monocytes % (Auto) 11.3 % (1.0-12.0); Neutrophils % (Auto) 78.4 % (38.0-78.0); Platelet Count 233 K/mcL (140-440); RBC 3.25 M/mcL (4.63-6.08); Red Cell Distribution Width 16.2 % (11.5-14.5); WBC 9.2 K/mcL (4.5-11.0)
[2022-04-17] MEDS: OMEPRAZOLE 20 MG CAPSULE PO SCH (07:49)
[2022-04-17] MEDS: CEFEPIME 1 GM VIAL IV SCH (08:32)
[2022-04-17] MEDS: ALLOPURINOL 100 MG TABLET PO SCH (08:32)
[2022-04-17] MEDS: APIXABAN 5 MG TABLET PO SCH ×2 (08:32→20:19)
[2022-04-17] MEDS: DOCUSATE SODIUM 100 MG CAPSULE PO SCH ×2 (08:32→20:19)
[2022-04-17] MEDS: FOLIC ACID 1 MG TABLET PO SCH (08:32)
[2022-04-17] MEDS: VITAMIN D3 25 MCG TABLET PO SCH (08:33)
[2022-04-17] MEDS: ATORVASTATIN 10 MG TABLET PO SCH (08:33)
[2022-04-17] MEDS: cloNIDine HCL 0.1 MG TABLET PO SCH ×2 (08:33→20:19)
[2022-04-17] MEDS: LABETALOL 100 MG TABLET PO SCH ×2 (08:33→20:19)
[2022-04-17] MEDS: HYDROXYCHLOROQUINE 200 MG TABLET PO SCH ×2 (08:33→20:18)
[2022-04-17] MEDS: Brimonidine [Alphagan P] 0.1 % drops OP SCH ×2 (08:34→20:20)
[2022-04-17] MEDS: Pilocarpine Hcl 5 mg tablet PO SCH (08:34)
[2022-04-17] MEDS: CALCIUM (OYSTER SHELL) 500 MG TABLET PO SCH (08:34)
[2022-04-17 08:45] LABS: ALT/SGPT 27 U/L (<40); AST/SGOT 28 U/L (<40); Albumin/Globulin Ratio 1.1 (1.0-2.3); Alkaline Phosphatase 87 U/L (39-117); Bilirubin,Total 0.7 mg/dL (0.1-1.0); Blood Urea Nitrogen 42 mg/dL (8-23); Carbon Dioxide 23 mmol/L (22-30); Chloride 101 mmol/L (96-108); Globulin 2.8 gm/dL (2.2-3.7); Glomerular Filtration Rate 59; Glucose 95 mg/dL (70-105)
--- NOTE | 2022-04-17 09:33 | XRay Report ---
HISTORY: Lower abdominal pain, recent wound debridement in the right foot FINDINGS: There is a moderate amount stool in the right side the colon and moderate amount of air in nondistended small bowel in the left mid abdomen. Large and small bowel are not abnormally dilated. No gross free intra-abdominal air is seen on this supine study. There is moderate fibrosis at the left lung base and the heart is enlarged. These are are chronic findings. IMPRESSION: No acute abnormality Interpreted and Authenticated by: Vasiliy Hicks 04/17/22
--- NOTE | 2022-04-17 11:35 | Infectious Disease Consult ---
HPI Date of Consult Consult Date: 04/17/22 Primary Care Provider: Thao Gordillo Consult Narrative Patient Information: Note initiated : 04/17/22 at 11:18 am Service Date, if different from initiated Date: [] Patient: Tera Jaramillo 77 y/o M admitted on 04/14/22 for Right Foot Debridement of Plantar Wound-. Chief Complaint: [] Chief complaint: right foot pain Reason for consult: right foot / leg cellulitis cc:: This is a 77-year-old male PMHx CHF, RA, obesity, admitted on 04/12/2022 after referring he developed a blood work blister at the sole of his right foot which opened up and started bleeding.Subsequently, he developed increasing redness and swelling throughout the foot as well as tenderness associated with chills. Upon admission, pt was tachycardic (92-105bpm), afebrile with borderline low bp 95/52mmHg with O2 sat of 92%. Initial labs with normal wbc (7.8k), increased pct 0.5, and creat 3.6. Patient was started on IV Cefepime + Clindamycin. Right lower extremity CT c/w moderate edema or cellulitis in the calf subcutaneous soft tissues, no evidence of discrete soft tissue abscess or osteomyelitis. CXR w/ moderate stable cardiomegaly and minor bibasilar ate lectasis. or fibrosis. No acute disease. On 04/15, patient underwent wound culture and bone biopsy by Wound care team. Blood cultures and MRSA nasal screen negative. Wound cx now growing MSSA. Now consulted to ID service for further antimicrobial recommendations. Constitutional Constitutional: Present chills EENT Eyes: Present as per HPI Cardiovascular Cardiovascular: Present as per HPI Respiratory Respiratory: Present as per HPI Gastrointestinal Gastrointestinal: Present as per HPI Musculoskeletal Musculoskeletal: Present radiating pain into limb Additional comments: refers pain in sole of right foot 10 Integumentary Integumentary: Present skin ulcer (pain in right sole ) and swelling (right foot ) Neurological Neurological: Present as per HPI PFSH PFSH All Active Problems (Updated 04/17/22 @ 13:45 by Sera Troy MD) Cellulitis of right leg (Acute) MSSA (methicillin susceptible Staphylococcus aureus) infection (Acute) Cellulitis of right foot due to methicillin-resistant Staphylococcus aureus (Acute) [id number] kidney injury (Acute) Status post debridement (Acute) Abscess or cellulitis of foot (Acute) Surgery, elective (Acute) Neuropathic foot ulcer (Acute) Infected surgical wound (Acute) Laceration (Chronic) Encounter for removal of sutures (Chronic) Costochondral pain (Chronic) Bleeding from varicose veins of lower extremity (Chronic) Anticoagulation adequate with anticoagulant therapy (Chronic) Abnormal antibody titer (Chronic) Adenomatous colon polyp (Chronic) Anemia (Chronic) Anticoagulant prescribed (Chronic) Aortic regurgitation (Chronic) Arthralgia (Chronic) Aspiration of liquid (Chronic) Benign colonic polyp (Chronic) Chondrosarcoma (Chronic) Cough (Chronic) Dissection of thoracoabdominal aorta (Chronic) Edema (Chronic) Elevated serum free T4 level (Chronic) Encounter for long-term (current) use of high-risk medication (Chronic) Encounter for long-term use of opiate analgesic (Chronic) Encounter for monitoring long-term proton pump inhibitor therapy (Chronic) Essential (primary) hypertension (Chronic) GERD without esophagitis (Chronic) GI bleed (Chronic) Hereditary and idiopathic neuropathy (Chronic) History of prostate cancer (Chronic) Hyperlipidemia (Chronic) PAULINA (iron deficiency anemia) (Chronic) Infected sebaceous cyst (Chronic) Influenza vaccine needed (Chronic) termite treater helper (current) use of non-steroidal anti-inflammatories (nsaid) (Chronic) Need for vaccination with 13-polyvalent pneumococcal conjugate vaccine (Chronic) Ongoing pain (Chronic) Overweight (Chronic) Paroxysmal atrial fibrillation (Chronic) Recurrent cold sores (Chronic) Right shoulder pain (Chronic) Stage III chronic kidney disease (Chronic) Superficial thrombophlebitis (Chronic) Venous insufficiency (Chronic) 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) Adenomatous polyp (Chronic) History of arthritis (Chronic) Multiple pulmonary nodules determined by computed tomography of lung (Chronic) Displaced spiral fracture of shaft of femur (Chronic) Fracture of plateau of left tibia (Chronic) Positive occult stool blood test (Chronic) Prostate cancer (Chronic) 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) Superficial varicosities (Chronic) Ruptured varicose vein (Chronic) Polyarthralgia (Chronic) Rheumatoid arthritis (Chronic) Osteopenia (Chronic) Osteoarthritis (Chronic) Positive BOB (antinuclear antibody) (Chronic) Elevated parathyroid hormone (Chronic) Decreased GFR (Chronic) Pulmonary nodules (Chronic) Cellulitis (Chronic) History of anticoagulant use (Chronic) Varicose vein of leg (Chronic) Acute dyspnea (Chronic) COVID-19 (Chronic) Acute dehydration (Chronic) Rheumatoid nodules (Chronic) Chronic kidney disease (Chronic) Malignant melanoma (Chronic) Hyperuricemia (Chronic) High serum potassium level (Acute) Diuretic-induced hypokalemia (Acute) Gout (Chronic) Blood potassium level greater than 5.0 mEq/L (Acute) Cellulitis (Acute) JOSE ANTONIO (acute kidney injury) (Acute) No-show for appointment (Acute) Medical History Abnormal antibody titer Acute dehydration Acute dyspnea Acute post-traumatic stress disorder Adenomatous colon polyp Adenomatous polyp Anemia Anticoagulant prescribed Anticoagulation adequate with anticoagulant therapy Aortic regurgitation Repair at time of TAA repair Arthralgia Aspiration of liquid Benign colonic polyp Bleeding from varicose veins of lower extremity Cellulitis Chondrosarcoma Chronic kidney disease Constrictive pericarditis Costochondral pain Cough COVID-19 Decreased GFR 01/13/20 GFR 50 Displaced spiral fracture of shaft of femur Dissection of thoracoabdominal aorta Edema Elevated parathyroid hormone Elevated serum free T4 level Encounter for long-term (current) use of high-risk medication Encounter for long-term use of opiate analgesic Encounter for monitoring long-term proton pump inhibitor therapy Encounter for removal of sutures Essential (primary) hypertension Fracture of plateau of left tibia GERD without esophagitis GI bleed Hereditary and idiopathic neuropathy History of anticoagulant use History of arthritis History of prostate cancer Hyperlipidemia PAULINA (iron deficiency anemia) Infected sebaceous cyst Influenza vaccine needed Laceration senior living (current) use of non-steroidal anti-inflammatories (nsaid) Malignant melanoma Left mid-back Multiple pulmonary nodules determined by computed tomography of lung Need for vaccination with 13-polyvalent pneumococcal conjugate vaccine Ongoing pain Osteoarthritis Osteopenia Overweight Paroxysmal atrial fibrillation Polyarthralgia Positive BOB (antinuclear antibody) Positive occult stool blood test Prostate cancer Pulmonary nodules Recurrent cold sores Rheumatoid arthritis Rheumatoid nodules Right shoulder pain Ruptured varicose vein Stage III chronic kidney disease GFR 60 => 45 cc/min over the past 20 yrs given catastrophic TAA and repair. Due to desire to keep BP low, diuretic therapy and RAASI therapy, superimposed prerenal azotemic state. 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 History of right shoulder replacement History of tonsillectomy S/P pericardial surgery remove pericardium, constrictive pericarditis Family History Other Aortic aneurysm Breast cancer Malignant melanoma Osteoporosis Prostate cancer Social History marital status: service: Yes occupational status: retired smoking status: Never smoker alcohol intake frequency: former alcohol drinker MEDS/ALLERGIES Home Medications and Allergies Home Medications Medication Instructions Recorded Confirmed Type labetalol 100 mg tablet 300 mg PO BID 08/14/15 04/11/22 History omeprazole 20 mg capsule,delayed 20 mg PO DAILY 08/14/15 04/11/22 History release apixaban 5 mg tablet (Eliquis) 5 mg PO BID 04/05/16 04/11/22 History multivitamin (Multi-Day tablet) 1 tab-cap PO QDAY 04/05/16 04/11/22 History atorvastatin 10 mg tablet 5 mg PO QDAY 11/27/16 04/11/22 History duloxetine 20 mg capsule,delayed 40 mg PO QHS 01/16/19 04/11/22 History release hydroxychloroquine 200 mg tablet 200 mg PO BID #60 tabs 01/16/19 04/11/22 Rx digoxin 125 mcg (0.125 mg) tablet 125 mcg PO QDAY 09/30/20 04/11/22 History magnesium 400 mg .Route BID 09/30/20 04/11/22 History pramipexole 0.125 mg tablet See Rx Instructions PO QDAY 09/30/20 04/11/22 History lisinopril 20 mg tablet 20 mg PO QDAY 04/07/21 04/11/22 History pilocarpine HCl 5 mg tablet 10 mg PO DAILY 04/07/21 04/11/22 History brimonidine 0.1 % eye drops 1 drp ophthalmic (eye) BID 04/13/21 04/11/22 History (Alphagan P) calcium carbonate 600 mg-vitamin 1,000 cap PO QDAY 04/13/21 04/11/22 History D3 25 mcg (1,000 unit) capsule cholecalciferol (vitamin D3) 1,250 2,000 unit PO DAILY 06/07/21 04/11/22 History mcg (50,000 unit) capsule vitamin B complex 1 tab PO DAILY 06/07/21 04/11/22 History docusate sodium 100 mg capsule 100 mg PO BID #20 caps 06/13/21 04/11/22 Rx (Dulcolax Stool Softener (docusate)) oxycodone 5 mg tablet 5 mg PO Q6H PRN pain #10 tabs 06/13/21 04/11/22 Rx ascorbic acid (vitamin C) 500 mg 1 g PO BID 07/18/21 04/11/22 History tablet clonidine HCl 0.3 mg tablet 0.3 mg PO QDAY 07/18/21 04/11/22 History ergocalciferol (vitamin D2) 50 mcg 50 mcg PO QMONTH 07/18/21 04/11/22 History (2,000 unit) capsule furosemide 80 mg tablet See Rx Instructions PO BID 01/16/22 04/11/22 History metolazone 2.5 mg tablet 2.5 mg PO QDAY 01/16/22 04/11/22 History allopurinol 300 mg tablet 300 mg PO QDAY #30 tabs 03/13/22 04/11/22 Rx folic acid 1 mg PO DAILY 04/11/22 04/11/22 History Allergies Allergy/AdvReac Type Severity Reaction Status Date / Time spironolactone Allergy Severe Swelling Verified 04/11/22 14:50 eplerenone Allergy Unknown Unknown Verified 04/11/22 14:50 irbesartan [From Avapro] Allergy Unknown Unknown Verified 04/11/22 14:50 lansoprazole [From Prevacid] Allergy Unknown Unknown Verified 04/11/22 14:50 valsartan [From Diovan] Allergy Unknown Unknown Verified 04/11/22 14:50 hydrocodone AdvReac Mild Vomiting Verified 04/12/22 09:26 Physical Examination Vital Signs Vital signs: Temp Pulse Resp BP Pulse Ox O2 Del Method O2 Flow Rate 98.5 F 96 H 20 131/65 94 Room Air 1 04/17/22 08:00 04/17/22 08:00 04/17/22 08:00 04/17/22 08:00 04/17/22 08:00 04/17/22 08:00 04/14/22 15:00 Constitutional General appearance: no acute distress and alert EENT Eyes pulmonary: nonicteric ENT: oropharynx moist Respiratory Effort: normal Gastrointestinal Gastrointestinal: normoactive bowel sounds Integumentary Integumentary: cellulitis and other Extremities Extremities: edema (right sole foot ulcer at the level of 1st submetatarsal; mild edema and erythema on right foot; hyperpigmented skin changes on lower extremities bilaterally ) Musculoskeletal Musculoskeletal: no deformities Neurologic Neurological: normal mental status and other (resting tremor ) Psychiatric Psychiatric: mood appropriate Results Laboratory Findings 04/17/22 06:00 04/17/22 05:59 Abnormal lab findings: Abnormal Labs 04/11/22 04/11/22 04/11/22 09:10 09:13 09:20 RBC 3.30 L Hgb 9.6 L Hct 30.5 L POC Hct 27.0 L RDW 16.6 H Immature Gran % (Auto) Neut % (Auto) Lymph % (Auto) 9.5 L Mcduffie % (Auto) 14.2 H Lymph # (Auto) 0.74 L Mcduffie # (Auto) 1.11 H Immature Gran # Absolute Neutrophils WBC Morphology Vacuolated Neuts Toxic Granulation RBC Morphology Hypochromasia Anisocytosis POC VBG pO2 48 H POC VBG HCO3 28.2 H POC VBG Total CO2 30.0 H POC Venous O2 Sat 83.0 H POC VBG Base Excess 4.0 H* POC Potassium 5.6 H POC BUN 83 H BUN Creatinine POC Creatinine 3.6 H Glucose POC Glucose 123 H Calcium POC WB Ioniz Calcium 1.11 L Magnesium Lactate Dehydrogenase C-Reactive Protein Total Protein Albumin Prealbumin Procalcitonin Digoxin 04/11/22 04/11/22 04/11/22 09:20 09:20 09:20 RBC Hgb Hct POC Hct RDW Immature Gran % (Auto) Neut % (Auto) Lymph % (Auto) Mcduffie % (Auto) Lymph # (Auto) Mcduffie # (Auto) Immature Gran # Absolute Neutrophils WBC Morphology Abnormal A Vacuolated Neuts 1+ A Toxic Granulation 1+ A RBC Morphology Abnormal A Hypochromasia 1+ A Anisocytosis 1+ A POC VBG pO2 POC VBG HCO3 POC VBG Total CO2 POC Venous O2 Sat POC VBG Base Excess POC Potassium POC BUN BUN Creatinine POC Creatinine Glucose POC Glucose Calcium POC WB Ioniz Calcium Magnesium Lactate Dehydrogenase C-Reactive Protein Total Protein Albumin Prealbumin Procalcitonin 0.50 H Digoxin 2.0 H* 04/12/22 04/12/22 04/12/22 05:16 05:17 05:17 RBC 3.25 L Hgb 9.3 L Hct 29.9 L POC Hct RDW 16.5 H Immature Gran % (Auto) 0.7 H Neut % (Auto) Lymph % (Auto) 8.9 L Mcduffie % (Auto) Lymph # (Auto) 0.67 L Mcduffie # (Auto) Immature Gran # Absolute Neutrophils WBC Morphology Vacuolated Neuts Toxic Granulation RBC Morphology Hypochromasia Anisocytosis POC VBG pO2 POC VBG HCO3 POC VBG Total CO2 POC Venous O2 Sat POC VBG Base Excess POC Potassium POC BUN BUN 71 H Creatinine 2.4 H POC Creatinine Glucose POC Glucose Calcium 8.5 L POC WB Ioniz Calcium Magnesium Lactate Dehydrogenase 229 H C-Reactive Protein Total Protein 5.5 L Albumin 2.9 L Prealbumin Procalcitonin 0.38 H Digoxin 04/13/22 04/15/22 04/15/22 05:47 08:15 08:16 RBC 3.29 L Hgb 9.4 L Hct 30.1 L POC Hct RDW 16.1 H Immature Gran % (Auto) 0.9 H Neut % (Auto) 83.8 H Lymph % (Auto) 5.7 L Mcduffie % (Auto) Lymph # (Auto) 0.57 L Mcduffie # (Auto) 0.95 H Immature Gran # 0.09 H Absolute Neutrophils 8.43 H WBC Morphology Vacuolated Neuts Toxic Granulation RBC Morphology Hypochromasia Anisocytosis POC VBG pO2 POC VBG HCO3 POC VBG Total CO2 POC Venous O2 Sat POC VBG Base Excess POC Potassium POC BUN BUN 52 H 50 H Creatinine 1.6 H 1.4 H POC Creatinine Glucose 107 H 118 H POC Glucose Calcium POC WB Ioniz Calcium Magnesium 2.7 H Lactate Dehydrogenase C-Reactive Protein Total Protein 5.8 L Albumin 2.9 L 3.1 L Prealbumin Procalcitonin Digoxin 04/16/22 04/16/22 04/17/22 05:24 05:25 05:59 RBC Hgb Hct POC Hct RDW Immature Gran % (Auto) Neut % (Auto) Lymph % (Auto) Mcduffie % (Auto) Lymph # (Auto) Mcduffie # (Auto) Immature Gran # Absolute Neutrophils WBC Morphology Vacuolated Neuts Toxic Granulation RBC Morphology Hypochromasia Anisocytosis POC VBG pO2 POC VBG HCO3 POC VBG Total CO2 POC Venous O2 Sat POC VBG Base Excess POC Potassium POC BUN BUN 42 H Creatinine POC Creatinine Glucose POC Glucose Calcium POC WB Ioniz Calcium Magnesium Lactate Dehydrogenase C-Reactive Protein 3.30 H Total Protein 5.8 L Albumin 3.0 L Prealbumin 13.2 L Procalcitonin 0.12 H Digoxin 04/17/22 06:00 RBC 3.25 L Hgb 9.4 L Hct 29.9 L POC Hct RDW 16.2 H Immature Gran % (Auto) 0.7 H Neut % (Auto) 78.4 H Lymph % (Auto) 8.0 L Mcduffie % (Auto) Lymph # (Auto) 0.74 L Mcduffie # (Auto) 1.04 H Immature Gran # 0.06 H Absolute Neutrophils WBC Morphology Vacuolated Neuts Toxic Granulation RBC Morphology Hypochromasia Anisocytosis POC VBG pO2 POC VBG HCO3 POC VBG Total CO2 POC Venous O2 Sat POC VBG Base Excess POC Potassium POC BUN BUN Creatinine POC Creatinine Glucose POC Glucose Calcium POC WB Ioniz Calcium Magnesium Lactate Dehydrogenase C-Reactive Protein Total Protein Albumin Prealbumin Procalcitonin Digoxin Microbiology: Microbiology 04/14/22 13:03 Foot - Right Anaerobic Culture - Preliminary 04/14/22 13:03 Foot - Right Tissue Culture - Preliminary Staphylococcus aureus 04/11/22 09:46 Blood Blood Culture - Final 04/11/22 09:43 Blood Blood Culture - Final 04/11/22 16:00 Nose MRSA (PCR) - Final A/P Assessment and plan (1) Cellulitis of right foot due to methicillin-resistant Staphylococcus aureus: Assessment and plan: 77M pmhx CHF, RA, gout admitted on 04/12 after p/w right foot sole blister x 5 days with associated right lower leg edema, erythema, pain, and chills. Upon admission, pt was tachycardic, increased pct, and JOSE ANTONIO. CT RLE with moderate cellulitis no evidence of abscess or OM. Pt was seen on 04/15 by Wound care service and underwent I&D and bone biopsy. Pt is currently on Cefepime. Plan: - discontinue Cefepime - place midline - start Cefazolin 1g IV q8hrs for a minimum of 14 days starting from I&D until 04/28/22 - set up follow up at ID clinic on April 28 to reassess wound and determine if extended antibiotic therapy is warranted - follow up with Wound care Status: Acute (2) MSSA (methicillin susceptible Staphylococcus aureus) infection: Status: Acute (3) Cellulitis of right leg: Status: Acute Narrative Plan of Treatment: Plan: Wound care recommendations per nurse. Antibiotics recommendation per ID. Await d/c planning and arrangements. Input from CM Time Spent With Patient Time: Total time spent is greater than 50% in coordination of care (as documented) at patient's floor/unit and/or counseling patient: Initial: Total time with patient: 40 - 54 minutes Total Critical Care Time: 40 (mins)
[2022-04-17] MEDS: MAG HYDROX/AL HYDROX/SIMETH 30 ML ORAL.SUSP PO PRN ×3 (11:52→20:18)
--- NOTE | 2022-04-17 11:52 | Internal Med Progress Note ---
SUBJECTIVE Subjective Patient information: Note initiated : 04/17/22 at 11:39 am Service Date, if different from initiated Date: [] Patient: Tera Jaramillo 77 y/o M admitted on 04/14/22 for Right Foot Debridement of Plantar Wound-. Chief Complaint: [] Interval history: Mr. Jaramillo is a 77 year old M Presents the ED with right foot pain and swelling as well as bleeding that has been going on for 5 days. Patient states about 4 5 days ago he noticed a blood blister on the sole of his foot. The blood blister eventually opened up and started bleeding. He denies stepping on anything or trauma to the foot. Over the following days he developed increasing redness and swelling throughout the foot as well as tenderness. He has had chills but denies fevers. In the ED patient was evaluated mildly tachycardic. Found have acute kidney injury. Elevated procalcitonin. Mildly elevated potassium. CT of the foot showing showed moderate cellulitis in the calf and soft tissues. His procalcitonin was elevated 0.5. Per the ED physician the infection has spread up to about his knee. And given the extensive ED and the acute kidney injury that was also noted. Admission was asked. Creatinine 3.6 on [id number]. Lactate unremarkable. 04/12 Patient states he slept okay. No new complaints. Been evaluated by Dr. Mike today. Anemia. Hyperkalemia improving. Renal function little better. Follow-up PCT. Wound care recommendations. Continue IV antibiotics and pending cultures Follow-up dig level currently holding. 04/13 Patient reports relatively poor sleep. Renal function and improving. Bilateral leg edema. We will try dose of Lasix with albumin. Patient undergo bedside I&D today by Dr. Mike. 04/14 Patient states poor sleep again. But otherwise no new complaints. Awaiting surgical I&D. Monitor foot wound. Kidney function. 04/15 Patient status post I&D yesterday by Dr. Mike. Patient feeling okay today. No new complaints. Awaiting surgical cultures. 04/16 Continue close monitoring wound care given the extensive compromise of the wound and status postdebridement. States poor sleep but otherwise doing okay. No new complaints. 04/17: Patient is feeling good this morning he denies any right foot pain at the moment. He denies any fever or chills or diaphoresis. He has a poor appetite. Foot wound culture growing MSSA. Continue cefepime. Requesting ID consult. Continue wound care as per wound care team. Physical therapy Occupational Therapy recommend SNF placement upon medical stability and clearance by Dr. Armstrong. Constitutional Vitals: Vital Signs Temp Pulse Resp BP Pulse Ox O2 Del Method O2 Flow Rate 36.9 C 96 H 20 131/65 94 Room Air 1 04/17/22 08:00 04/17/22 08:00 04/17/22 08:00 04/17/22 08:00 04/17/22 08:00 04/17/22 08:00 04/14/22 15:00 Period Temp Pulse Resp BP Sys/Barraza Pulse Ox O2 Del Method O2 Flow Rate Last 24 Hr 36.5 C-37.1 C 66-96 16-20 111-131/63-81 91-95 Room Air-Room Air Intake and Output 04/16/22 04/17/22 04/17/22 19:59 03:59 11:59 Intake Total 720 850 Output Total 750 750 300 Balance -30 100 -300 Weight 104.417 kg Intake & Output: Intake & Output 04/16/22 04/17/22 04/17/22 19:59 03:59 11:59 Intake Total 720 850 Output Total 750 750 300 Balance -30 100 -300 Weight 104.417 kg Intake: Oral 240 850 GI Tube Flush 480 Output: Void Amount 750 750 300 Other: Meal Lunch Percent of Meal Consumed 100% Feeding Ability Independent Urine Appearance Clear Clear Clear Urine Color Yellow Yellow Yellow Urine Odor Normal Normal Stool Size Moderate Stool Color Brown Stool Consistency Soft Formed # Voids 1 # Bowel Movements 1 Head Head exam: Present atraumatic and normal inspection Eye Eye exam: Present normal appearance ENT ENT exam: Present mucous membranes moist, normal exam and normal external ear exam Neck Neck exam: Present normal inspection Respiratory Respiratory exam: Present normal respiratory exam Cardiovascular Cardiovascular exam: Present normal rate and rhythm GI/Abdominal GI/Abdominal exam: Present normal bowel sounds Extremities Exam Additional comments: Right foot covered by surgical dressing Back Exam Back exam: Present normal inspection Neurological Exam Neurological exam: Present alert and oriented X3 Skin Skin exam: Present intact and warm OBJ DATA Labs 04/17/22 06:00 04/17/22 05:59 Labs: Abnormal Lab Results 0204/17/22 04/16/22 06:00 05:59 05:25 RBC 3.25 L Hgb 9.4 L Hct 29.9 L RDW 16.2 H Immature Gran % (Auto) 0.7 H Neut % (Auto) 78.4 H Lymph % (Auto) 8.0 L Lymph # (Auto) 0.74 L [place] # (Auto) 1.04 H Immature Gran # 0.06 H Absolute Neutrophils BUN 42 H Creatinine Glucose Magnesium C-Reactive Protein Total Protein 5.8 L Albumin 3.0 L Prealbumin Procalcitonin 0.12 H 04/16/22 04/15/22 04/15/22 05:24 08:16 08:15 RBC 3.29 L Hgb 9.4 L Hct 30.1 L RDW 16.1 H Immature Gran % (Auto) 0.9 H Neut % (Auto) 83.8 H Lymph % (Auto) 5.7 L Lymph # (Auto) 0.57 L [place] # (Auto) 0.95 H Immature Gran # 0.09 H Absolute Neutrophils 8.43 H BUN 50 H Creatinine 1.4 H Glucose 118 H Magnesium 2.7 H C-Reactive Protein 3.30 H Total Protein Albumin 3.1 L Prealbumin 13.2 L Procalcitonin Meds: Medications Acetaminophen (Acetaminophen 325 Mg Tablet) 650 mg PO Q6HP PRN PRN Reason: PAIN/FEVER > 101 Last Admin: 04/17/22 07:49 Dose: 650 mg Albuterol/Ipratropium (Ipratropium/Albuterol 3 Ml Ampul.Neb) 3 ml NEB Q4HP PRN PRN Reason: Shortness Of Breath Allopurinol (Allopurinol 100 Mg Tablet) 50 mg PO QDAY [facility] Last Admin: 04/17/22 08:32 Dose: 50 mg Apixaban (Apixaban 5 Mg Tablet) 5 mg PO BID [facility] Last Admin: 04/17/22 08:32 Dose: 5 mg Atorvastatin Calcium (Atorvastatin 10 Mg Tablet) 5 mg PO QDAY [facility] Last Admin: 04/17/22 08:33 Dose: 5 mg Calcium Carbonate/Glycine (Calcium (Oyster Shell) 500 Mg Tablet) 1,000 mg PO QDAY [facility] Last Admin: 04/17/22 08:34 Dose: 1,000 mg Cefepime HCl (Cefepime 1 Gm Vial) 1 gm IV Q12H [facility]; Protocol Last Admin: 04/17/22 08:32 Dose: 1 gm Clonidine HCl (Clonidine Hcl 0.1 Mg Tablet) 0.3 mg PO QDAY [facility] Last Admin: 04/17/22 08:33 Dose: 0.3 mg Clonidine HCl (Clonidine Hcl 0.1 Mg Tablet) 0.2 mg PO HS [facility] Last Admin: 04/16/22 20:16 Dose: 0.2 mg Digoxin (Digoxin 125 Mcg Tablet) 125 mcg PO QDAY@1400 [facility] Last Admin: 04/16/22 14:17 Dose: 125 mcg Docusate Sodium (Docusate Sodium 100 Mg Capsule) 100 mg PO BID [facility] Last Admin: 04/17/22 08:32 Dose: 100 mg Duloxetine HCl (Duloxetine 20 Mg Capsule) 40 mg PO QHS [facility] Last Admin: 04/16/22 20:17 Dose: 40 mg Ergocalciferol (Ergocalciferol (Vitamin D2) 50,000 Unit Capsule) 50,000 unit PO MONTHLY [facility] Folic Acid (Folic Acid 1 Mg Tablet) 1 mg PO DAILY [facility] Last Admin: 04/17/22 08:32 Dose: 1 mg Hydroxychloroquine Sulfate (Hydroxychloroquine 200 Mg Tablet) 200 mg PO BID [facility] Last Admin: 04/17/22 08:33 Dose: 200 mg Potassium Chloride 40 meq/ (Dextrose) 520 mls @ 130 mls/hr IV UD PRN PRN Reason: Potassium < 3 Magnesium Sulfate (Magnesium Sulfate) 2 gm in 50 mls @ 50 mls/hr IV UD PRN PRN Reason: Magnesium </= 1.6 Labetalol HCl (Labetalol 100 Mg Tablet) 300 mg PO BID [facility] Last Admin: 04/17/22 08:33 Dose: 300 mg Metoprolol Tartrate (Metoprolol Tartrate 5 Mg/5 Ml Vial) 5 mg IV Q2HP PRN PRN Reason: Tachyarrhythmias HR>110 Omeprazole (Omeprazole 20 Mg Capsule) 20 mg PO QAMAC [facility] Last Admin: 04/17/22 07:49 Dose: 20 mg Ondansetron HCl (Ondansetron 4 Mg/2 Ml Vial) 4 mg IV Q4HP PRN PRN Reason: Nausea And Vomiting Oxycodone HCl (Oxycodone Hcl 5 Mg Tablet) 5 - 10 mg PO Q6HP PRN; Protocol PRN Reason: pain Last Admin: 04/17/22 08:34 Dose: 10 mg Brimonidine [ Alphagan P] 0.1 % Drops 1 dose OP BID [facility] Last Admin: 04/17/22 08:34 Dose: 1 dose Pilocarpine Hcl 5 Mg (Tablet) 2 dose PO DAILY [facility] Last Admin: 04/17/22 08:34 Dose: Not Given Polyethylene Glycol (Polyethylene Glycol 3350 17 Gm Packet) 17 gm PO DAILYP PRN PRN Reason: Constipation Potassium Chloride (Potassium Chloride 20 Meq Tablet) 40 meq PO UD PRN PRN Reason: Potssium is 3-3.5 Potassium Chloride (Potassium Chloride 20 Meq Tablet) 40 meq PO UD PRN PRN Reason: Potassium < 3 Senna (Sennosides 1 Tablet) 2 tab PO DAILYP PRN PRN Reason: Constipation Sodium Chloride (0.9 % Sodium Chloride 10 Ml Syringe) 10 ml IV Q8 [facility] Last Admin: 04/17/22 05:54 Dose: 10 ml Vitamin D (Vitamin D3 25 Mcg Tablet) 50 mcg PO DAILY [facility] Last Admin: 04/17/22 08:33 Dose: 50 mcg A/P Assessment and plan (1) Abscess or cellulitis of foot: Status: Acute (2) [id number] kidney injury: Status: Acute (3) Gout: Status: Chronic (4) GERD without esophagitis: Status: Chronic (5) Hyperlipidemia: Status: Chronic (6) Essential (primary) hypertension: Status: Chronic (7) Rheumatoid arthritis: Status: Chronic Qualifiers: Rheumatoid arthritis location: multiple sites Rheumatoid factor presence: without rheumatoid factor Qualified Code(s): M06.09 - Rheumatoid arthritis without rheumatoid factor, multiple sites (8) Paroxysmal atrial fibrillation: Status: Chronic Narrative A/P Narrative: Assessment and Plans: 1. Cellulitis/abscess of the right foot: Inpatient med surg s/p I&D by Dr. Martinez on 04/15, wound culture MSSA Continue wound care by wound care team Infectious disease consult, recs. appreciated PT/OT-->recs. SNF placement Narcotics PRN pain control cbc w/ auto diff in the morning to trend WBC level 2. Essential hypertension: Labetalol and Clonidine achieving normal blood pressure 3. Paroxysmal atrial fibrillation: Eliquis Digoxin Labetalol 4. Hyperlipidemia: Lipitor 5. Depression: Cymbalta 6. Rheumatoid arthritis: Plaquenil 7. Acute on chronic kidney injury: Serum Cr level back to the baseline Saline lock Avoid nephrotoxic agents CMP in the morning to trend kidney functions 8. Gout: Allopurinol 9. GERD: Prilosec GI ppx: Prilosec DVT ppx: Eliquis Code status: Full Prognosis: guarded Disposition: inpatient med surg; SNF Time Spent With Patient Time: Total time spent is greater than 50% in coordination of care (as documented) at patient's floor/unit and/or counseling patient: Subsequent: Total time with patient: 35 - 49 minutes QUALITY VTE Deep Vein Thrombosis/Pulmonary Embolism Present on Admission: No
--- NOTE | 2022-04-17 12:42 | Infectious Disease Consult ---
HPI Date of Consult Primary Care Provider: Thao Gordillo Consult Narrative Patient Information: Note initiated : 04/17/22 at 12:39 pm Service Date, if different from initiated Date: [] Patient: Tera Jaramillo 77 y/o M admitted on 04/14/22 for Right Foot Debridement of Plantar Wound-. Chief Complaint: [] cc:: CC: Hoang Cruz [facility] All Active Problems (Updated 04/17/22 @ 11:45 by Doug Friedman MD) [id number] kidney injury (Acute) Status post debridement (Acute) Abscess or cellulitis of foot (Acute) Surgery, elective (Acute) Neuropathic foot ulcer (Acute) Infected surgical wound (Acute) Laceration (Chronic) Encounter for removal of sutures (Chronic) Costochondral pain (Chronic) Bleeding from varicose veins of lower extremity (Chronic) Anticoagulation adequate with anticoagulant therapy (Chronic) Abnormal antibody titer (Chronic) Adenomatous colon polyp (Chronic) Anemia (Chronic) Anticoagulant prescribed (Chronic) Aortic regurgitation (Chronic) Arthralgia (Chronic) Aspiration of liquid (Chronic) Benign colonic polyp (Chronic) Chondrosarcoma (Chronic) Cough (Chronic) Dissection of thoracoabdominal aorta (Chronic) Edema (Chronic) Elevated serum free T4 level (Chronic) Encounter for long-term (current) use of high-risk medication (Chronic) Encounter for long-term use of opiate analgesic (Chronic) Encounter for monitoring long-term proton pump inhibitor therapy (Chronic) Essential (primary) hypertension (Chronic) GERD without esophagitis (Chronic) GI bleed (Chronic) Hereditary and idiopathic neuropathy (Chronic) History of prostate cancer (Chronic) Hyperlipidemia (Chronic) PAULINA (iron deficiency anemia) (Chronic) Infected sebaceous cyst (Chronic) Influenza vaccine needed (Chronic) half-way (current) use of non-steroidal anti-inflammatories (nsaid) (Chronic) Need for vaccination with 13-polyvalent pneumococcal conjugate vaccine (Chronic) Ongoing pain (Chronic) Overweight (Chronic) Paroxysmal atrial fibrillation (Chronic) Recurrent cold sores (Chronic) Right shoulder pain (Chronic) Stage III chronic kidney disease (Chronic) Superficial thrombophlebitis (Chronic) Venous insufficiency (Chronic) 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) Adenomatous polyp (Chronic) History of arthritis (Chronic) Multiple pulmonary nodules determined by computed tomography of lung (Chronic) Displaced spiral fracture of shaft of femur (Chronic) Fracture of plateau of left tibia (Chronic) Positive occult stool blood test (Chronic) Prostate cancer (Chronic) 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) Superficial varicosities (Chronic) Ruptured varicose vein (Chronic) Polyarthralgia (Chronic) Rheumatoid arthritis (Chronic) Osteopenia (Chronic) Osteoarthritis (Chronic) Positive BOB (antinuclear antibody) (Chronic) Elevated parathyroid hormone (Chronic) Decreased GFR (Chronic) Pulmonary nodules (Chronic) Cellulitis (Chronic) History of anticoagulant use (Chronic) Varicose vein of leg (Chronic) Acute dyspnea (Chronic) COVID-19 (Chronic) Acute dehydration (Chronic) Rheumatoid nodules (Chronic) Chronic kidney disease (Chronic) Malignant melanoma (Chronic) Hyperuricemia (Chronic) High serum potassium level (Acute) Diuretic-induced hypokalemia (Acute) Gout (Chronic) Blood potassium level greater than 5.0 mEq/L (Acute) Cellulitis (Acute) JOSE ANTONIO (acute kidney injury) (Acute) No-show for appointment (Acute) Medical History Abnormal antibody titer Acute dehydration Acute dyspnea Acute post-traumatic stress disorder Adenomatous colon polyp Adenomatous polyp Anemia Anticoagulant prescribed Anticoagulation adequate with anticoagulant therapy Aortic regurgitation Repair at time of TAA repair Arthralgia Aspiration of liquid Benign colonic polyp Bleeding from varicose veins of lower extremity Cellulitis Chondrosarcoma Chronic kidney disease Constrictive pericarditis Costochondral pain Cough COVID-19 Decreased GFR 01/13/20 GFR 50 Displaced spiral fracture of shaft of femur Dissection of thoracoabdominal aorta Edema Elevated parathyroid hormone Elevated serum free T4 level Encounter for long-term (current) use of high-risk medication Encounter for long-term use of opiate analgesic Encounter for monitoring long-term proton pump inhibitor therapy Encounter for removal of sutures Essential (primary) hypertension Fracture of plateau of left tibia GERD without esophagitis GI bleed Hereditary and idiopathic neuropathy History of anticoagulant use History of arthritis History of prostate cancer Hyperlipidemia PAULINA (iron deficiency anemia) Infected sebaceous cyst Influenza vaccine needed Laceration half-way (current) use of non-steroidal anti-inflammatories (nsaid) Malignant melanoma Left mid-back Multiple pulmonary nodules determined by computed tomography of lung Need for vaccination with 13-polyvalent pneumococcal conjugate vaccine Ongoing pain Osteoarthritis Osteopenia Overweight Paroxysmal atrial fibrillation Polyarthralgia Positive BOB (antinuclear antibody) Positive occult stool blood test Prostate cancer Pulmonary nodules Recurrent cold sores Rheumatoid arthritis Rheumatoid nodules Right shoulder pain Ruptured varicose vein Stage III chronic kidney disease GFR 60 => 45 cc/min over the past 20 yrs given catastrophic TAA and repair. Due to desire to keep BP low, diuretic therapy and RAASI therapy, superimposed prerenal azotemic state. 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 History of right shoulder replacement History of tonsillectomy S/P pericardial surgery remove pericardium, constrictive pericarditis Family History Other Aortic aneurysm Breast cancer Malignant melanoma Osteoporosis Prostate cancer Social History marital status: service: Yes occupational status: retired smoking status: Never smoker alcohol intake frequency: former alcohol drinker MEDS/ALLERGIES Home Medications and Allergies Home Medications Medication Instructions Recorded Confirmed Type labetalol 100 mg tablet 300 mg PO BID 08/14/15 04/11/22 History omeprazole 20 mg capsule,delayed 20 mg PO DAILY 08/14/15 04/11/22 History release apixaban 5 mg tablet (Eliquis) 5 mg PO BID 04/05/16 04/11/22 History multivitamin (Multi-Day tablet) 1 tab-cap PO QDAY 04/05/16 04/11/22 History atorvastatin 10 mg tablet 5 mg PO QDAY 11/27/16 04/11/22 History duloxetine 20 mg capsule,delayed 40 mg PO QHS 01/16/19 04/11/22 History release hydroxychloroquine 200 mg tablet 200 mg PO BID #60 tabs 01/16/19 04/11/22 Rx digoxin 125 mcg (0.125 mg) tablet 125 mcg PO QDAY 09/30/20 04/11/22 History magnesium 400 mg .Route BID 09/30/20 04/11/22 History pramipexole 0.125 mg tablet See Rx Instructions PO QDAY 09/30/20 04/11/22 History lisinopril 20 mg tablet 20 mg PO QDAY 04/07/21 04/11/22 History pilocarpine HCl 5 mg tablet 10 mg PO DAILY 04/07/21 04/11/22 History brimonidine 0.1 % eye drops 1 drp ophthalmic (eye) BID 04/13/21 04/11/22 History (Alphagan P) calcium carbonate 600 mg-vitamin 1,000 cap PO QDAY 04/13/21 04/11/22 History D3 25 mcg (1,000 unit) capsule cholecalciferol (vitamin D3) 1,250 2,000 unit PO DAILY 06/07/21 04/11/22 History mcg (50,000 unit) capsule vitamin B complex 1 tab PO DAILY 06/07/21 04/11/22 History docusate sodium 100 mg capsule 100 mg PO BID #20 caps 06/13/21 04/11/22 Rx (Dulcolax Stool Softener (docusate)) oxycodone 5 mg tablet 5 mg PO Q6H PRN pain #10 tabs 06/13/21 04/11/22 Rx ascorbic acid (vitamin C) 500 mg 1 g PO BID 07/18/21 04/11/22 History tablet clonidine HCl 0.3 mg tablet 0.3 mg PO QDAY 07/18/21 04/11/22 History ergocalciferol (vitamin D2) 50 mcg 50 mcg PO QMONTH 07/18/21 04/11/22 History (2,000 unit) capsule furosemide 80 mg tablet See Rx Instructions PO BID 01/16/22 04/11/22 History metolazone 2.5 mg tablet 2.5 mg PO QDAY 01/16/22 04/11/22 History allopurinol 300 mg tablet 300 mg PO QDAY #30 tabs 03/13/22 04/11/22 Rx folic acid 1 mg PO DAILY 04/11/22 04/11/22 History Allergies Allergy/AdvReac Type Severity Reaction Status Date / Time spironolactone Allergy Severe Swelling Verified 04/11/22 14:50 eplerenone Allergy Unknown Unknown Verified 04/11/22 14:50 irbesartan [From Avapro] Allergy Unknown Unknown Verified 04/11/22 14:50 lansoprazole [From Prevacid] Allergy Unknown Unknown Verified 04/11/22 14:50 valsartan [From Diovan] Allergy Unknown Unknown Verified 04/11/22 14:50 hydrocodone AdvReac Mild Vomiting Verified 04/12/22 09:26 Physical Examination Vital Signs Vital signs: Temp Pulse Resp BP Pulse Ox O2 Del Method O2 Flow Rate 98.1 F 91 H 20 130/69 93 Room Air 1 04/17/22 12:00 04/17/22 12:00 04/17/22 12:00 04/17/22 12:00 04/17/22 12:00 04/17/22 12:00 04/14/22 15:00 Constitutional General appearance: no acute distress and alert EENT Eyes pulmonary: nonicteric ENT: oropharynx moist Respiratory Effort: normal Cardiovascular Cardiovascular: regular rate and rhythm Gastrointestinal Gastrointestinal: non-tender and non-distended Extremities Extremities: other (bilateral lower extremity hyperpigmented skin; presence of open wound in right sole in 1st submetatarsal area ) Neurologic Neurological: normal mental status Psychiatric Psychiatric: mood appropriate Results Laboratory Findings 04/17/22 06:00 04/17/22 05:59 Abnormal lab findings: Abnormal Labs 04/11/22 04/11/22 04/11/22 09:10 09:13 09:20 RBC 3.30 L Hgb 9.6 L Hct 30.5 L POC Hct 27.0 L RDW 16.6 H Immature Gran % (Auto) Neut % (Auto) Lymph % (Auto) 9.5 L [place] % (Auto) 14.2 H Lymph # (Auto) 0.74 L [place] # (Auto) 1.11 H Immature Gran # Absolute Neutrophils WBC Morphology Vacuolated Neuts Toxic Granulation RBC Morphology Hypochromasia Anisocytosis POC VBG pO2 48 H POC VBG HCO3 28.2 H POC VBG Total CO2 30.0 H POC Venous O2 Sat 83.0 H POC VBG Base Excess 4.0 H* POC Potassium 5.6 H POC BUN 83 H BUN Creatinine POC Creatinine 3.6 H Glucose POC Glucose 123 H Calcium POC WB Ioniz Calcium 1.11 L Magnesium Lactate Dehydrogenase C-Reactive Protein Total Protein Albumin Prealbumin Procalcitonin Digoxin 04/11/22 04/11/22 04/11/22 09:20 09:20 09:20 RBC Hgb Hct POC Hct RDW Immature Gran % (Auto) Neut % (Auto) Lymph % (Auto) [place] % (Auto) Lymph # (Auto) [place] # (Auto) Immature Gran # Absolute Neutrophils WBC Morphology Abnormal A Vacuolated Neuts 1+ A Toxic Granulation 1+ A RBC Morphology Abnormal A Hypochromasia 1+ A Anisocytosis 1+ A POC VBG pO2 POC VBG HCO3 POC VBG Total CO2 POC Venous O2 Sat POC VBG Base Excess POC Potassium POC BUN BUN Creatinine POC Creatinine Glucose POC Glucose Calcium POC WB Ioniz Calcium Magnesium Lactate Dehydrogenase C-Reactive Protein Total Protein Albumin Prealbumin Procalcitonin 0.50 H Digoxin 2.0 H* 04/12/22 04/12/22 04/12/22 05:16 05:17 05:17 RBC 3.25 L Hgb 9.3 L Hct 29.9 L POC Hct RDW 16.5 H Immature Gran % (Auto) 0.7 H Neut % (Auto) Lymph % (Auto) 8.9 L [place] % (Auto) Lymph # (Auto) 0.67 L [place] # (Auto) Immature Gran # Absolute Neutrophils WBC Morphology Vacuolated Neuts Toxic Granulation RBC Morphology Hypochromasia Anisocytosis POC VBG pO2 POC VBG HCO3 POC VBG Total CO2 POC Venous O2 Sat POC VBG Base Excess POC Potassium POC BUN BUN 71 H Creatinine 2.4 H POC Creatinine Glucose POC Glucose Calcium 8.5 L POC WB Ioniz Calcium Magnesium Lactate Dehydrogenase 229 H C-Reactive Protein Total Protein 5.5 L Albumin 2.9 L Prealbumin Procalcitonin 0.38 H Digoxin 04/13/22 04/15/22 04/15/22 05:47 08:15 08:16 RBC 3.29 L Hgb 9.4 L Hct 30.1 L POC Hct RDW 16.1 H Immature Gran % (Auto) 0.9 H Neut % (Auto) 83.8 H Lymph % (Auto) 5.7 L [place] % (Auto) Lymph # (Auto) 0.57 L [place] # (Auto) 0.95 H Immature Gran # 0.09 H Absolute Neutrophils 8.43 H WBC Morphology Vacuolated Neuts Toxic Granulation RBC Morphology Hypochromasia Anisocytosis POC VBG pO2 POC VBG HCO3 POC VBG Total CO2 POC Venous O2 Sat POC VBG Base Excess POC Potassium POC BUN BUN 52 H 50 H Creatinine 1.6 H 1.4 H POC Creatinine Glucose 107 H 118 H POC Glucose Calcium POC WB Ioniz Calcium Magnesium 2.7 H Lactate Dehydrogenase C-Reactive Protein Total Protein 5.8 L Albumin 2.9 L 3.1 L Prealbumin Procalcitonin Digoxin 04/16/22 04/16/22 04/17/22 05:24 05:25 05:59 RBC Hgb Hct POC Hct RDW Immature Gran % (Auto) Neut % (Auto) Lymph % (Auto) [place] % (Auto) Lymph # (Auto) [place] # (Auto) Immature Gran # Absolute Neutrophils WBC Morphology Vacuolated Neuts Toxic Granulation RBC Morphology Hypochromasia Anisocytosis POC VBG pO2 POC VBG HCO3 POC VBG Total CO2 POC Venous O2 Sat POC VBG Base Excess POC Potassium POC BUN BUN 42 H Creatinine POC Creatinine Glucose POC Glucose Calcium POC WB Ioniz Calcium Magnesium Lactate Dehydrogenase C-Reactive Protein 3.30 H Total Protein 5.8 L Albumin 3.0 L Prealbumin 13.2 L Procalcitonin 0.12 H Digoxin 04/17/22 06:00 RBC 3.25 L Hgb 9.4 L Hct 29.9 L POC Hct RDW 16.2 H Immature Gran % (Auto) 0.7 H Neut % (Auto) 78.4 H Lymph % (Auto) 8.0 L [place] % (Auto) Lymph # (Auto) 0.74 L [place] # (Auto) 1.04 H Immature Gran # 0.06 H Absolute Neutrophils WBC Morphology Vacuolated Neuts Toxic Granulation RBC Morphology Hypochromasia Anisocytosis POC VBG pO2 POC VBG HCO3 POC VBG Total CO2 POC Venous O2 Sat POC VBG Base Excess POC Potassium POC BUN BUN Creatinine POC Creatinine Glucose POC Glucose Calcium POC WB Ioniz Calcium Magnesium Lactate Dehydrogenase C-Reactive Protein Total Protein Albumin Prealbumin Procalcitonin Digoxin Microbiology: Microbiology 04/14/22 13:03 Foot - Right Anaerobic Culture - Preliminary 04/14/22 13:03 Foot - Right Tissue Culture - Preliminary Staphylococcus aureus 04/11/22 09:46 Blood Blood Culture - Final 04/11/22 09:43 Blood Blood Culture - Final 04/11/22 16:00 Nose MRSA (PCR) - Final Diagnostic Findings Chest x-ray: report reviewed A/P Time Spent With Patient Time: Total time spent is greater than 50% in coordination of care (as documented) at patient's floor/unit and/or counseling patient:
--- NOTE | 2022-04-17 12:55 | General Surgery Progress Note ---
SUBJECTIVE Subjective Patient information: Note initiated : 04/17/22 at 12:51 pm Service Date, if different from initiated Date: [] Patient: Tera Jaramillo 77 y/o M admitted on 04/14/22 for Right Foot Debridement of Plantar Wound-. Chief Complaint: [] Additional PMFSH (Level 3 Only): Patient had an uneventful night. Progressing well with physical therapy. POD #2. Saw patient along with Santiago Bennett RN. Examined wound. Spoke with patient and his . Constitutional Vitals: Vital Signs Temp Pulse Resp BP Pulse Ox O2 Del Method O2 Flow Rate 98.1 F 91 H 20 130/69 93 Room Air 1 04/17/22 12:00 04/17/22 12:00 04/17/22 12:00 04/17/22 12:00 04/17/22 12:00 04/17/22 12:00 04/14/22 15:00 Period Temp Pulse Resp BP Sys/Barraza Pulse Ox O2 Del Method O2 Flow Rate Last 24 Hr 98.1 F-98.7 F 66-96 16-20 121-131/65-81 91-95 Room Air-Room Air Intake and Output 04/17/22 04/17/22 04/17/22 03:59 11:59 19:59 Intake Total 850 Output Total 750 675 Balance 100 -675 Intake & Output: Intake & Output 04/17/22 04/17/22 04/17/22 03:59 11:59 19:59 Intake Total 850 Output Total 750 675 Balance 100 -675 Intake: Oral 850 Output: Void Amount 750 675 Other: Urine Appearance Clear Clear Urine Color Yellow Dark Yellow Urine Odor Normal Normal # Voids 1 Exam: AVSS. No changes CARMEN. Progressing well with physical therapy. Awaits roll about offloading scooter. No changes CARMEN. RIGHT plantar surgical wound site is clean. Granulating base. Wound c/s pansensitive staph. Bone biopsy / culture pending. Awaiting bone biopsy report. ID recommendations. 2 weeks of IV antibiotics and REASSESS. Patient has steps to climb at home. He will benefit from short term rehab. He is . Recommend [facility] in [place]. CM to check A/P Narrative A/P Narrative: Assessment: Progressing well. Plan of Treatment: Plan: Wound care recommendations per nurse. Antibiotics recommendation per ID. Await d/c planning and arrangements. Input from CM Time Spent With Patient Time: Total time spent is greater than 50% in coordination of care (as documented) at patient's floor/unit and/or counseling patient:
[2022-04-17] MEDS: DIGOXIN 125 MCG TABLET PO SCH (14:13)
[2022-04-17] MEDS: DULoxetine 20 MG CAPSULE PO SCH (20:18)
[2022-04-17] MEDS ORDERED: 0.9 % SODIUM CHLORIDE 10 ML SYRINGE IV SCH (21:00)
[2022-04-17] MEDS: ceFAZolin 1 GM VIAL IV SCH (21:23)
[2022-04-18] MEDS: MAG HYDROX/AL HYDROX/SIMETH 30 ML ORAL.SUSP PO PRN ×3 (00:19→09:21)
[2022-04-18] MEDS: oxyCODONE HCL 5 MG TABLET PO PRN ×3 (02:10→09:27)
[2022-04-18] MEDS: ceFAZolin 1 GM VIAL IV SCH ×2 (05:16→12:43)
[2022-04-18] MEDS: 0.9 % SODIUM CHLORIDE 10 ML SYRINGE IV SCH (05:16)
[2022-04-18 07:19] LABS: Basophils # (Auto) 0.04 K/mcL (0.00-0.30); Basophils % (Auto) 0.4 % (0.0-2.0); Eosinophils # (Auto) 0.07 K/mcL (0.00-0.70); Eosinophils % (Auto) 0.7 % (0.0-7.0); Hematocrit 27.9 % (40.1-51.0); Hemoglobin 8.7 g/dL (13.7-17.5); Lymphocytes % (Auto) 6.8 % (15.5-49.0); Mean Cell Volume 92.1 fL (80.0-100.0); Mean Corpuscular HGB Conc 31.2 g/dL (31.0-36.0); Mean Platelet Volume 9.4 fL (8.8-12.5); Monocytes # (Auto) 1.31 K/mcL (0.10-0.90); Monocytes % (Auto) 12.7 % (1.0-12.0); Neutrophils % (Auto) 78.6 % (38.0-78.0); Platelet Count 232 K/mcL (140-440); RBC 3.03 M/mcL (4.63-6.08); Red Cell Distribution Width 16.4 % (11.5-14.5); WBC 10.4 K/mcL (4.5-11.0)
[2022-04-18 07:58] LABS: ALT/SGPT 27 U/L (<40); AST/SGOT 27 U/L (<40); Albumin 2.9 gm/dL (3.2-5.2); Albumin/Globulin Ratio 1.1 (1.0-2.3); Alkaline Phosphatase 85 U/L (39-117); Bilirubin,Total 0.7 mg/dL (0.1-1.0); Blood Urea Nitrogen 28 mg/dL (8-23); Calcium 8.7 mg/dL (8.6-10.4); Carbon Dioxide 27 mmol/L (22-30); Chloride 101 mmol/L (96-108); Globulin 2.6 gm/dL (2.2-3.7); Glomerular Filtration Rate 65; Glucose 106 mg/dL (70-105)
[2022-04-18] MEDS: LABETALOL 100 MG TABLET PO SCH (08:05)
[2022-04-18] MEDS: ATORVASTATIN 10 MG TABLET PO SCH (08:06)
[2022-04-18] MEDS: CALCIUM (OYSTER SHELL) 500 MG TABLET PO SCH (08:06)
[2022-04-18] MEDS: cloNIDine HCL 0.1 MG TABLET PO SCH (08:07)
[2022-04-18] MEDS: OMEPRAZOLE 20 MG CAPSULE PO SCH (08:07)
[2022-04-18] MEDS: FOLIC ACID 1 MG TABLET PO SCH (08:07)
[2022-04-18] MEDS: DOCUSATE SODIUM 100 MG CAPSULE PO SCH (08:07)
[2022-04-18] MEDS: VITAMIN D3 25 MCG TABLET PO SCH (08:07)
[2022-04-18] MEDS: APIXABAN 5 MG TABLET PO SCH (08:08)
[2022-04-18] MEDS: HYDROXYCHLOROQUINE 200 MG TABLET PO SCH (08:10)
[2022-04-18] MEDS: ALLOPURINOL 100 MG TABLET PO SCH (08:11)
--- NOTE | 2022-04-18 08:49 | General Surgery Progress Note ---
SUBJECTIVE Subjective Patient information: Note initiated : 04/18/22 at 8:44 am Service Date, if different from initiated Date: [] Patient: Tera Jaramillo 77 y/o M admitted on 04/14/22 for Right Foot Debridement of Plantar Wound-. Chief Complaint: [] Additional PMFSH (Level 3 Only): Patient seen on rounds with Santiago Bennett RN. Constitutional Vitals: Vital Signs Temp Pulse Resp BP Pulse Ox O2 Del Method O2 Flow Rate 98.5 F 94 H 18 143/76 92 Room Air 1 04/18/22 04:08 04/18/22 04:08 04/18/22 04:08 04/18/22 04:08 04/18/22 04:08 04/18/22 04:08 04/14/22 15:00 Period Temp Pulse Resp BP Sys/Barraza Pulse Ox O2 Del Method O2 Flow Rate Last 24 Hr 98.1 F-98.6 F 90-101 17-20 126-143/67-78 92-94 Room Air-Room Air Intake and Output 04/17/22 04/18/22 04/18/22 19:59 03:59 11:59 Intake Total 700 1000 0 Output Total 300 250 150 Balance 400 750 -150 Weight 231 lb 9.6 oz Intake & Output: Intake & Output 04/17/22 04/18/22 04/18/22 19:59 03:59 11:59 Intake Total 700 1000 0 Output Total 300 250 150 Balance 400 750 -150 Weight 231 lb 9.6 oz Intake: Oral 300 1000 0 GI Tube Flush 400 Output: Void Amount 300 250 150 Other: Urine Appearance Clear Clear Clear Urine Color Yellow Yellow Yellow Urine Odor Normal Normal Stool Size Moderate Stool Color Brown Stool Consistency Soft Formed # Voids 1 1 1 # Bowel Movements 1 Exam: AVSS. No changes in CARMEN. Offloading Wound VAC site and Right foot. VAC working well. ID note appreciated. Patient awaits MED line for IV antibiotics. Later d/c to Rehab facility. A/P Narrative A/P Narrative: Assessment: Satisfactory progress. Plan of Treatment: Plan: Await d/c planning and arrangements. Input from CM. Will follow up in rehab facility or clinic. Time Spent With Patient Time: Total time spent is greater than 50% in coordination of care (as documented) at patient's floor/unit and/or counseling patient:
[2022-04-18] MEDS: Pilocarpine Hcl 5 mg tablet PO SCH (09:07)
[2022-04-18] MEDS: ACETAMINOPHEN 325 MG TABLET PO PRN (09:28)
[2022-04-18] MEDS ORDERED: SIMETHICONE 80 MG TAB.CHEW CHEWED ONE (09:55)
--- NOTE | 2022-04-18 10:27 | Discharge Summary ---
Discharge Provider Provider IMPORTANT FOLLOW-UP INFORMATION FOR PCP: Patient information: Note initiated : 04/18/22 at 10:24 am Service Date, if different from initiated Date: [] Patient: Tera Jaramillo 77 y/o M admitted on 04/14/22 for Right Foot Debridement of Plantar Wound-. Chief Complaint: [] Date of admission: 04/14/22 09:41 Discharge date: 04/18/22 Primary care physician: Thao Gordillo Attending physician on admission: Hoang Cruz Consults: 04/11/22 Consult to Physician [CONS] Stat Comment: Consulting Provider: Hoang Cruz Reason For Exam: Physician to Consult 04/12/22 09:10 Consult to Physician [CONS] Routine Comment: Wound care Consulting Provider: Roshan Mike Reason For Exam: Physician to Consult 04/13/22 13:50 Consult to Physician [CONS] Routine Comment: Pre op evaluation of patient TODAY Consulting Provider: Anesthesiology Reason For Exam: Physician to Consult 04/17/22 10:48 Consult to Physician [CONS] Routine Comment: Consulting Provider: Evaristo VICK Reason For Exam: Physician to Consult Attending physician on discharge: [facility] Joana Pui COURSE Hospital Course Hospital course: Mr. Jaramillo is a 77 year old M Presents the ED with right foot pain and swelling as well as bleeding that has been going on for 5 days. Patient states about 4 5 days ago he noticed a blood blister on the sole of his foot. The blood blister eventually opened up and started bleeding. He denies stepping on anything or trauma to the foot. Over the following days he developed increasing redness and swelling throughout the foot as well as tenderness. He has had chills but denies fevers. In the ED patient was evaluated mildly tachycardic. Found have acute kidney injury. Elevated procalcitonin. Mildly elevated potassium. CT of the foot showing showed moderate cellulitis in the calf and soft tissues. His procalcitonin was elevated 0.5. Per the ED physician the infection has spread up to about his knee. And given the extensive ED and the acute kidney injury that was also noted. Admission was asked. Creatinine 3.6 on [id number]. Lactate unremarkable. 04/12 Patient states he slept okay. No new complaints. Been evaluated by Dr. Mike today. Anemia. Hyperkalemia improving. Renal function little better. Follow-up PCT. Wound care recommendations. Continue IV antibiotics and pending cultures Follow-up dig level currently holding. 04/13 Patient reports relatively poor sleep. Renal function and improving. Bilateral leg edema. We will try dose of Lasix with albumin. Patient undergo bedside I&D today by Dr. Mike. 04/14 Patient states poor sleep again. But otherwise no new complaints. Awaiting surgical I&D. Monitor foot wound. Kidney function. 04/15 Patient status post I&D yesterday by Dr. Mike. Patient feeling okay today. No new complaints. Awaiting surgical cultures. 04/16 Continue close monitoring wound care given the extensive compromise of the wound and status postdebridement. States poor sleep but otherwise doing okay. No new complaints. 04/17: Patient is feeling good this morning he denies any right foot pain at the moment. He denies any fever or chills or diaphoresis. He has a poor appetite. Foot wound culture growing MSSA. Continue cefepime. Requesting ID consult. Continue wound care as per wound care team. Physical therapy Occupational Therapy recommend SNF placement upon medical stability and clearance by Dr. Armstrong. 04/18: Discharged to SNF. Discharge diagnosis: Right foot abscess and cellulitis Time Spent with Patient Time attestation: Total time spent providing and/or coordinating discharge services: Time spent: Greater than 30 minutes EXAM Constitutional Vitals: Temp Pulse Resp BP Pulse Ox O2 Del Method O2 Flow Rate 36.6 C 93 H 20 128/69 93 Room Air 1 04/18/22 08:00 04/18/22 08:00 04/18/22 08:00 04/18/22 08:00 04/18/22 08:00 04/18/22 08:00 04/14/22 15:00 General appearance: cooperative and no acute distress Head Head exam: Present atraumatic and normocephalic Eye Eye exam: Present EOMI and PERRL ENT ENT exam: Present mucous membranes moist, normal exam and normal external ear exam Neck Neck exam: Present normal inspection; Absent lymphadenopathy, tenderness or thyromegaly Respiratory Respiratory exam: Absent accessory muscle use, respiratory distress or wheezes Cardiovascular Cardiovascular exam: Present normal rate and rhythm; Absent JVD GI/Abdominal GI/Abdominal exam: Present normal bowel sounds and soft; Absent organomegaly or tenderness Rectal Rectal exam: Present deferred Extremities Exam Extremities exam: Present full ROM, normal capillary refill and normal inspection; Absent tenderness Additional comments: Right foot covered by wound dressing Neurological Exam Neurological exam: Present alert, CN II-XII intact and oriented X3; Absent motor sensory deficit Psychiatric Psychiatric exam: Present normal affect and normal mood; Absent anxious or depressed Skin Skin exam: Present dry and intact Discharge Data Data Completed and Pending Labs on day of discharge: Labs from last 24 hours 04/18/22 04/18/22 06:11 06:11 WBC 10.4 RBC 3.03 L Hgb 8.7 L Hct 27.9 L MCV 92.1 MCH 28.7 MCHC 31.2 RDW 16.4 H Plt Count 232 MPV 9.4 Immature Gran % (Auto) 0.8 H Neut % (Auto) 78.6 H Lymph % (Auto) 6.8 L Hawkins % (Auto) 12.7 H Eos % (Auto) 0.7 Baso % (Auto) 0.4 Lymph # (Auto) 0.70 L Hawkins # (Auto) 1.31 H Eos # (Auto) 0.07 Baso # (Auto) 0.04 Immature Gran # 0.08 H Absolute Neutrophils 8.15 H Sodium 138 Potassium 4.1 Chloride 101 Carbon Dioxide 27 Anion Gap 10.0 BUN 28 H Creatinine 1.1 GFR Calculation 65 Glucose 106 H Calcium 8.7 Total Bilirubin 0.7 AST 27 ALT 27 Alkaline Phosphatase 85 Total Protein 5.5 L Albumin 2.9 L Globulin 2.6 Albumin/Globulin Ratio 1.1 Preliminary micro results at discharge 04/14/22 13:03 Anaerobic Culture - Preliminary Foot - Right Gram Stain - Preliminary Tissue Culture - Preliminary Coagulase negative staph Dermabacter hominis Staphylococcus aureus#2 Discharge Plan Patient/Caregiver Discharge Instructions Activity: increase activity as tolerated Diet: Regular Diet Instructions: Cellulitis (GEN) Prescriptions: New cefazolin 1 gram Recon Soln 1 g IV Q8H 11 Days Qty: 33 0RF Continued apixaban [Eliquis] 5 mg tablet 5 mg PO BID multivitamin [Multi-Day] tablet 1 tab-cap PO QDAY lisinopril 20 mg tablet 20 mg PO QDAY pilocarpine HCl 5 mg tablet 10 mg PO DAILY calcium carbonate-vitamin D3 600 mg-25 mcg (1,000 unit) capsule 1,000 cap PO QDAY Alphagan P 0.1 % drops 1 drp ophthalmic (eye) BID ergocalciferol (vitamin D2) 50 mcg (2,000 unit) capsule 50 mcg PO QMONTH Rx Instructions: takes 50,000 units monthly. metolazone 2.5 mg tablet 2.5 mg PO QDAY Patient Comments: Dose as of 01/16/2022 furosemide 80 mg tablet See Rx Instructions PO BID Rx Instructions: 240 mg in AM and 120 mg at 4 PM orally twice a day; Take 3 tabs every morning and take 1.5 tablets in the afternoon atorvastatin 10 mg tablet 5 mg PO QDAY duloxetine 20 mg capsule,delayed release(DR/EC) 40 mg PO QHS hydroxychloroquine 200 mg tablet 200 mg PO BID Qty: 60 3RF magnesium 400 mg .Route BID Rx Instructions: bid pramipexole 0.125 mg tablet See Rx Instructions PO QDAY Rx Instructions: 5 tabs PO daily; digoxin 125 mcg (0.125 mg) tablet 125 mcg PO QDAY ascorbic acid (vitamin C) 500 mg tablet 1 g PO BID Rx Instructions: takes 600 mg two times a day. allopurinol 300 mg tablet 300 mg PO QDAY Qty: 30 2RF labetalol 100 MG tablet 300 mg PO BID omeprazole 20 MG capsule 20 mg PO DAILY clonidine HCl 0.3 mg tablet 0.3 mg PO QDAY Rx Instructions: 0.2 MG IN THE EVENING vitamin B complex Tablet Extended Release 1 tab PO DAILY cholecalciferol (vitamin D3) 50,000 unit capsule 2,000 unit PO DAILY Rx Instructions: 50,000 unit PO Q Week x 12 weeks; then decrease to 50,000 units per month thereafter. docusate sodium [Dulcolax Stool Softener (dss)] 100 mg capsule 100 mg PO BID Qty: 20 0RF folic acid 1 mg 1 mg PO DAILY oxycodone 5 mg tablet 5 mg PO Q6H PRN (Reason: pain) Qty: 10 0RF Discontinued potassium chloride 20 mEq tablet extended release 40 meq PO TID Qty: 540 3RF Other Ambulatory Orders: Wound Care Instructions (CONT) Location: None Selected Ordered By: Roshan Mike Outpatient PICC Placement (ONCE) Location: None Selected Ordered By: Doug Friedman Rollabout (ONCE) Location: None Selected Ordered By: Roshan Mike Follow Up Plan Follow up with: Roshan Mike MD [Physician] - (Dr. Mike will follow up with the patient in the facility. Will need follow up in the clinic in 2 weeks or as directed by Dr. Mike) Thao Gordillo MD [Primary Care Provider] - Sera Nielsen MD [Physician] - (04/28/2022) Patient Disposition: Xfer SNF Plan of Treatment: Plan: Await d/c planning and arrangements. Input from CM. Will follow up in rehab facility or clinic. Prognosis: Fair Rehab Potential: Good I certify that the patient requires SNF services: Yes Overall status at discharge: patient is progressing back to baseline Discharge Orders: Discharge Order (Routine); Ordered 04/18/22 Ordered By: Doug LYNN VTE Deep Vein Thrombosis/Pulmonary Embolism Present on Admission: No
[2022-05-09] MEDS ORDERED: ERGOCALCIFEROL (VITAMIN D2) 50,000 UNIT CAPSULE PO SCH (09:00)
== END 2022-04-18 13:25 | DRG 571 ==
LOC: ED 08:20 → INTOOBSV 13:59 → MEDSUR 13:59
PROVIDERS: ADMIT Internal Medicine; ATTEND Internal Medicine